=== PATIENT | male | born 1945 | race Caucasian/White ===

== ENCOUNTER → 2018-03-07 | Outpatient (CLI) | payer MEDICARE, OTHER ==
--- NOTE | 2018-03-07 15:51 | KCIC ---
EXAM: Chest, single view. HISTORY: MRI pacemaker screening. COMPARISON: None. FINDINGS: A frontal view the chest is obtained. There is mild diffuse increased interstitial opacity. There is no consolidation, pleural effusion or pneumothorax. There is a prominent cardiac silhouette. There is a small hiatal hernia. IMPRESSION: 1. No foreign body to preclude MRI. 2. Diffuse increased interstitial opacity likely due to chronic interstitial changes with superimposed atelectasis. No consolidated infiltrate is seen. 3. Prominent cardiac silhouette. Electronically signed by: Sugey Graham MD (03/07/2018 3:47 PM) [place] [id number]
--- NOTE | 2018-03-07 16:47 | KCIC ---
MRI Lumbar Spine without contrast History: Low back pain Technique: Multiplanar, multi sequential noncontrast MR imaging was performed of the lumbar spine. Comparison: None Findings: Lumbar vertebral body stature and AP alignment are within normal limits. There is recent superior T12 compression fracture with associated marrow edema signified by STIR hyperintense and T1 hypointense signal, no osseous retropulsion. Conus terminates at L1. There is more advanced degenerative disc disease at L2-3, degenerative endplate change at this level. There is [id number] degenerative disc disease at L5-S1. The conus terminates at L1-2. L2-L3: There is posterior protrusion/contained extrusion, indentation upon the ventral thecal sac greatest centrally and in the right lateral recess. This is estimated about 5 mm AP by 7 mm CC by at least 11 mm transverse. There is mild buckling of the ligamentum flavum. There is [id number] narrowing of the far right lateral recess with contact of the descending right L3 nerve, very mild narrowing of the far left lateral recess. There is mild left and moderate to severe right neural foramina compromise. L3-L4: There is negligible disc osteophyte complex and bulge. Spinal canal is overall adequate. There is mild buckling of the ligamentum flavum and facet degenerative change. There is moderate to severe left and mild right neural foramina compromise. L4-L5: There is mild buckling of the ligamentum flavum. There is minimal disc osteophyte complex greater in the inferior neural foramina. There is mild facet degenerative change. There is moderate to severe left greater than right neural foramina compromise. L5-S1: There is shallow posterior bulge, no significant impingement descending S1 nerve roots or spinal stenosis. There is mild to moderate facet degenerative change. There is disc osteophyte complex in the inferior neural foramina greater on the left. There is severe narrowing of the left neural foramen with impingement of the exiting left L5 nerve root, also moderate to severe narrowing on the right. Impression: 1. There is recent superior T12 compression fracture without osseous retropulsion, associated marrow edema. 2. There is [id number] right lateral recess stenosis L2-3 by contained extrusion/protrusion. There is contact of the descending right L3 nerve root. 3. There is multilevel neural foramina compromise, more significant narrowing bilaterally at L5-S1 and L4-5, on the left at L3-4, and on the right at L2-3. 4. There is more advanced degenerative disc disease at L2-3, to lesser degree at L5-S1. Electronically signed by: Roge Lindo MD (03/07/2018 4:43 PM) [facility]
--- NOTE | 2018-03-07 16:59 | KCIC ---
MR of the sacrum without contrast HISTORY: Uncontrolled low back pain. TECHNIQUE: Routine multiplanar sequences are obtained orthogonal to the sacrum. FINDINGS: The left femoral head is barely visualized, but demonstrates serpiginous subchondral signal marrow changes compatible with osteonecrosis. Visualization is not adequate to evaluate for subchondral bone collapse or degenerative disease of the joint. There is no evidence of bone destruction, marrow edema or acute fracture at the sacrum. The sacroiliac joints are intact. No evidence of significant subchondral marrow edema or erosion. The neural foramina are patent. No abnormality is seen within the soft tissues around the sacrum. Barely visualized lower spine demonstrates degenerative spondylosis. There is a fluid signal lesion to the left of the rectum, partially seen. This may be contiguous with the urinary bladder and represent a bladder diverticulum. IMPRESSION: 1. Barely visualized left femoral head demonstrates findings compatible with osteonecrosis. Recommend MR of the left hip. 2. No acute findings of the sacrum or sacroiliac joints. 3. Lower lumbar spondylosis. 4. Fluid signal lesion in the posterior left pelvis may represent a large bladder diverticulum. There appear to be some other diverticula or trabeculations of the posterior bladder. CT could further evaluate as indicated. Electronically signed by: Arturo Maloney MD (03/07/2018 4:55 PM) [facility]-KC[facility]
== END | disposition home or self-care (01) ==
LOC: KCIC MRI 14:59
PROVIDERS: ATTEND Family Medicine
DX: M51.17 Intervertebral disc disorders with radiculopathy, lumbosacral region (principal); S22.080A Wedge compression fracture of T11-T12 vertebra, initial encounter for closed fracture; K44.9 Diaphragmatic hernia without obstruction or gangrene; M47.26 Other spondylosis with radiculopathy, lumbar region; M25.78 Osteophyte, vertebrae; X58.XXXA Exposure to other specified factors, initial encounter; Y93.89 Activity, other specified; Y92.89 Other specified places as the place of occurrence of the external cause; Y99.8 Other external cause status
CPT/HCPCS: 71045; 72148; 72195

== ENCOUNTER 2018-04-03 22:38 | Emergency (ER) | payer OTHER ==
[~2018-04-03] VITALS: Ht 182.9 cm; Wt 88.5 kg
[2018-04-03] MEDS ORDERED: ONDANSETRON PF 4 MG/2 ML VIAL. ONE (23:09)
[2018-04-03] MEDS ORDERED: ONDANSETRON PF 4 MG/2 ML VIAL. IV ONE (23:30)
[2018-04-04] MEDS ORDERED: IV NORMAL SALINE 1000ML BAG 1,000 ML IV ONE (01:30)
[2018-04-04 01:40] LABS: BASO # 0.1 x10^3/uL (0.0-0.2); BASO % 1 % (0-3); EOS # 0.1 x10^3/uL (0.0-0.7); EOS % 1 % (0-3); HEMOGLOBIN 17.1 g/dL (13.0-17.5); LYMPH # 1.1 x10^3/uL (1.0-4.8); LYMPH % 10 % (24-48); MEAN CORPUSCULAR HEMOGLOBIN 32 pg (25-35); MEAN CORPUSCULAR HGB CONC 34 g/dL (31-37); MEAN CORPUSCULAR VOLUME 93 fL (79-100); MONO # 1.1 x10^3/uL (0.0-1.1); MONO % 10 % (0-9); NEUT # 8.5 x10^3uL (1.8-7.7); NEUT % 79 % (31-73); PLATELET COUNT 229 x10^3/uL (140-400); RED BLOOD COUNT 5.36 x10^6/uL (4.30-5.70); RED CELL DISTRIBUTION WIDTH 13.2 % (11.5-14.5); WHITE BLOOD COUNT 10.8 x10^3/uL (4.0-11.0)
--- NOTE | 2018-04-04 01:45 | PHYS DOC ---
Past Medical History Past Medical History: GERD, Hypotension, Other Additional Past Medical Histor: BACK PAIN (TANA ANDERSON APRN) Past Surgical History: Other Additional Past Surgical Histo: UNKNOWN (TANA ANDERSON APRN) Alcohol Use: None Drug Use: None (TANA ANDERSON APRN) Adult General Chief Complaint Chief Complaint: NAUSEA/VOMITING/DIARRHA HPI HPI Patient is a 72 year old male who presents with sudden onset of nausea and vomiting this evening. The patient resides at [facility]. He is extremely hard to understand. He does state that he ate dinner this evening. He states the nausea started suddenly. He denies fever or body aches. (TANA ANDERSON APRN) Review of Systems Review of Systems Constitutional: Denies fever or chills [] Eyes: Denies change in visual acuity, redness, or eye pain [] HENT: Denies nasal congestion or sore throat [] Respiratory: Denies cough or shortness of breath [] Cardiovascular: No additional information not addressed in HPI [] GI: See history of present illness : Denies dysuria or hematuria [] Musculoskeletal: Denies back pain or joint pain [] Integument: Denies rash or skin lesions [] Neurologic: Denies headache, focal weakness or sensory changes [] Endocrine: Denies polyuria or polydipsia [] All other systems were reviewed and found to be within normal limits, except as documented in this note. (TANA ANDERSON APRN) Current Medications Current Medications Current Medications Medications (Trade) Dose Ordered Sig/Diaz Start Time Stop Time Status Last Admin Dose Admin Info (CONTRAST GIVEN -- Rx MONITORING) 1 each PRN DAILY PRN 04/04/18 02:45 04/06/18 02:44 Iohexol (Omnipaque 300 Mg/ml) 60 ml 1X ONCE 04/04/18 02:30 04/04/18 02:35 DC 04/04/18 02:31 60 ML Ondansetron HCl (Zofran) 4 mg 1X ONCE 04/03/18 23:30 04/03/18 23:33 DC 04/03/18 23:20 4 MG Sodium Chloride 1,000 ml @ 1,000 mls/hr 1X ONCE 04/04/18 01:30 04/04/18 02:29 DC 04/04/18 01:20 1,000 MLS/HR ([facility]) Allergies Allergies Allergies Coded Allergies Type Severity Reaction Last Updated Verified Penicillins Allergy Intermediate 04/03/18 Yes erythromycin base Allergy Intermediate 04/03/18 Yes ([facility]) Physical Exam Physical Exam Constitutional: Well developed, well nourished, no acute distress, non-toxic appearance. [] HENT: Normocephalic, atraumatic, bilateral external ears normal, oropharynx moist, no oral exudates, nose normal. [] Eyes: PERRLA, EOMI, conjunctiva normal, no discharge. [] Neck: Normal range of motion, no tenderness, supple, no stridor. [] Cardiovascular:Heart rate regular rhythm, no murmur [] Lungs & Thorax: Bilateral breath sounds clear to auscultation [] Abdomen: Bowel sounds hyperactive, soft, mild diffuse tenderness, no masses, no pulsatile masses. [] Skin: Warm, dry, no erythema, no rash. [] Back: No tenderness, no CVA tenderness. [] Extremities: No tenderness, no cyanosis, no clubbing, ROM intact, no edema. [] Neurologic: Alert and oriented X 3, normal motor function, normal sensory function, no focal deficits noted. [] Psychologic: Affect normal, judgement normal, mood normal. [] (TANA ANDERSON APRN) Current Patient Data Vital Signs Vital Signs Date Time Temp Pulse Resp B/P (MAP) Pulse Ox O2 Delivery O2 Flow Rate FiO2 04/04/18 02:35 102 18 145/75 (98) 99 Room Air 04/03/18 22:38 97.2 2.0 97.2 ([facility]) Lab Values Laboratory Tests Test 04/04/18 01:30 White Blood Count 10.8 x10^3/uL (4.0-11.0) Red Blood Count 5.36 x10^6/uL (4.30-5.70) Hemoglobin 17.1 g/dL (13.0-17.5) Hematocrit 50.0 % (39.0-53.0) Mean Corpuscular Volume 93 fL (79-100) Mean Corpuscular Hemoglobin 32 pg (25-35) Mean Corpuscular Hemoglobin Concent 34 g/dL (31-37) Red Cell Distribution Width 13.2 % (11.5-14.5) Platelet Count 229 x10^3/uL (140-400) Neutrophils (%) (Auto) 79 % (31-73) H Lymphocytes (%) (Auto) 10 % (24-48) L Monocytes (%) (Auto) 10 % (0-9) H Eosinophils (%) (Auto) 1 % (0-3) Basophils (%) (Auto) 1 % (0-3) Neutrophils # (Auto) 8.5 x10^3uL (1.8-7.7) H Lymphocytes # (Auto) 1.1 x10^3/uL (1.0-4.8) Monocytes # (Auto) 1.1 x10^3/uL (0.0-1.1) Eosinophils # (Auto) 0.1 x10^3/uL (0.0-0.7) Basophils # (Auto) 0.1 x10^3/uL (0.0-0.2) Sodium Level 136 mmol/L (136-145) Potassium Level 4.5 mmol/L (3.5-5.1) Chloride Level 100 mmol/L (98-107) Carbon Dioxide Level 27 mmol/L (21-32) Anion Gap 9 (6-14) Blood Urea Nitrogen 43 mg/dL (8-26) H Creatinine 1.5 mg/dL (0.7-1.3) H Estimated GFR (Cockcroft-Gault) 45.7 BUN/Creatinine Ratio 29 (6-20) H Glucose Level 179 mg/dL (70-99) H Calcium Level 9.7 mg/dL (8.5-10.1) Total Bilirubin 0.6 mg/dL (0.2-1.0) Aspartate Amino Transferase (AST) 20 U/L (15-37) Alanine Aminotransferase (ALT) 32 U/L (16-63) Alkaline Phosphatase 70 U/L (46-116) Total Protein 7.7 g/dL (6.4-8.2) Albumin 3.2 g/dL (3.4-5.0) L Albumin/Globulin Ratio 0.7 (1.0-1.7) L Laboratory Tests 04/04/18 01:30 Laboratory Tests 04/04/18 01:30 ([facility],STEPAN DO) Lab Values Laboratory Tests Test 04/04/18 01:30 White Blood Count 10.8 x10^3/uL (4.0-11.0) Red Blood Count 5.36 x10^6/uL (4.30-5.70) Hemoglobin 17.1 g/dL (13.0-17.5) Hematocrit 50.0 % (39.0-53.0) Mean Corpuscular Volume 93 fL (79-100) Mean Corpuscular Hemoglobin 32 pg (25-35) Mean Corpuscular Hemoglobin Concent 34 g/dL (31-37) Red Cell Distribution Width 13.2 % (11.5-14.5) Platelet Count 229 x10^3/uL (140-400) Neutrophils (%) (Auto) 79 % (31-73) H Lymphocytes (%) (Auto) 10 % (24-48) L Monocytes (%) (Auto) 10 % (0-9) H Eosinophils (%) (Auto) 1 % (0-3) Basophils (%) (Auto) 1 % (0-3) Neutrophils # (Auto) 8.5 x10^3uL (1.8-7.7) H Lymphocytes # (Auto) 1.1 x10^3/uL (1.0-4.8) Monocytes # (Auto) 1.1 x10^3/uL (0.0-1.1) Eosinophils # (Auto) 0.1 x10^3/uL (0.0-0.7) Basophils # (Auto) 0.1 x10^3/uL (0.0-0.2) Sodium Level 136 mmol/L (136-145) Potassium Level 4.5 mmol/L (3.5-5.1) Chloride Level 100 mmol/L (98-107) Carbon Dioxide Level 27 mmol/L (21-32) Anion Gap 9 (6-14) Blood Urea Nitrogen 43 mg/dL (8-26) H Creatinine 1.5 mg/dL (0.7-1.3) H Estimated GFR (Cockcroft-Gault) 45.7 BUN/Creatinine Ratio 29 (6-20) H Glucose Level 179 mg/dL (70-99) H Calcium Level 9.7 mg/dL (8.5-10.1) Total Bilirubin Pending Aspartate Amino Transferase (AST) Pending Alanine Aminotransferase (ALT) Pending Alkaline Phosphatase Pending Total Protein Pending Albumin Pending Albumin/Globulin Ratio Pending Laboratory Tests 04/04/18 01:30 Laboratory Tests 04/04/18 01:30 (TANA ANDERSON DONATO) EKG EKG [] (TANA ANDERSON DONATO) Radiology/Procedures Radiology/Procedures [] (TANA ANDERSON DONATO) Radiology/Procedures CT abdomen and pelvis with contrast PQRS statement: CT scans at this facility use dose reduction including either automated exposure control, iterative reconstructions, and /or weight based radiation dosing via mA and kV modification when appropriate to reduce radiation dose to as low as reasonably achievable. HISTORY: Abdominal pain and vomiting. TECHNIQUE: Helical CT imaging abdomen and pelvis with 60 mL Omnipaque 300 intravenous contrast. Abdomen findings: T12 vertebral superior endplate mild subacute compression deformity similar to MR imaging from March 07, 2018. Adrenal glands are markedly atrophic. Kidneys, pancreas, gallbladder, liver and spleen are unremarkable. Hiatal hernia of the upper stomach. There is moderate fluid distention of the stomach and duodenal bulb with collapse of the remainder of the duodenum, there is mild redundant mucosa within the lumen at the junction of the duodenal bulb and descending duodenum. There may be mild groundglass mesenteric edema left abdominal small bowel and fold thickening. The appendix is negative. Sigmoid diverticulosis. No abdominal fluid or adenopathy. Pelvis findings: There is bladder diverticuli, with mild calcifications within the left dominant 3 cm diverticulum. Fatty right inguinal hernia. Prostate, rectum and bones are unremarkable. IMPRESSION: 1. Mild mesenteric edema and fold thickening of the left abdominal jejunum could indicate enteritis. 2. Moderate fluid distention of the stomach and duodenal bulb with collapse of the remainder of the duodenum with redundant mucosa at the junction of the duodenal bulb with the descending duodenum. An obstructing lesion at the duodenum cannot be excluded. 3. Hiatal hernia of the upper stomach. 4. The appendix is negative. 5. Bladder diverticuli as described above. (STEPAN IRVIN DO) Course & Med Decision Making Course & Med Decision Making Pertinent Labs and Imaging studies reviewed. (See chart for details) []The patient was given a fluid bolus and Zofran to help with his nausea. He is currently sleeping in his room and appears comfortable. 04/04/2018 care was signed over to Dr. Irvin at 0158. (TANA ANDERSON APRN) Course & Med Decision Making Dr. Irvin's note Received patient at 0 158, agree with previous H&P. Patient has had no additional nausea and vomiting at 0 355. Patient was transported to and from [place] without any complications. No evidence of an obstruction, no perforation, believe the patient to be stable for discharge to home with outpatient medication. (STEPAN IRVIN DO) Dragon Disclaimer Dragon Disclaimer This electronic medical record was generated, in whole or in part, using a voice recognition dictation system. (TANA ANDERSON APRN) Departure Departure Impression: Primary Impression: Nausea and vomiting Disposition: HOME, SELF-CARE Condition: GOOD Referrals: ABELARDO ALFONSO MD (PCP) Follow-up in 2 days Patient Instructions: Nausea and Vomiting Additional Instructions: Drink plenty of fluids, frequent small sips. No fatty foods, no milk, and no pepper for the next 48 hours. For the next 48 hours eat a diet rich in carbohydrates with foods such as bananas, rice, applesauce, and toast. Follow- up with your regular doctor in 2 days. Return to the ER if unable to tolerate liquids or any other concerns. Scripts Ondansetron Hcl (ZOFRAN) 4 Mg Tablet 4 MG PO PRN TID PRN for NAUSEA/VOMITING, #15 nausea/vomiting Prov: STEPAN IRVIN DO 04/04/18 Hyoscyamine Sulfate (LEVSIN) 0.125 Mg Tablet 0.125 MG PO QID, #30 TAB Prov: STEPAN IRVIN DO 04/04/18 Problem Qualifiers Primary Impression: Nausea and vomiting Vomiting type: unspecified Vomiting Intractability: non-intractable Qualified Codes: R11.2 - Nausea with vomiting, unspecified TANA ANDERSON APRN Apr 04, 2018 01:45 STEPAN IRVIN DO Apr 04, 2018 04:00
[2018-04-04 01:55] LABS: CALCIUM 9.7 mg/dL (8.5-10.1); CREATININE 1.5 mg/dL (0.7-1.3); GFR 45.7; POTASSIUM 4.5 mmol/L (3.5-5.1)
[2018-04-04 02:00] LABS: ALBUMIN 3.2 g/dL (3.4-5.0); ALBUMIN/GLOBULIN RATIO 0.7 (1.0-1.7); TOTAL BILIRUBIN 0.6 mg/dL (0.2-1.0); TOTAL PROTEIN 7.7 g/dL (6.4-8.2)
[2018-04-04] MEDS ORDERED: IOHEXOL 300 MG/ML 100ML VIAL. IV ONE (02:30)
[2018-04-04 02:35] VITALS: BP_DIAS 75
[2018-04-04] MEDS ORDERED: CONTRAST GIVEN. MC PRN (02:45)
--- NOTE | 2018-04-04 03:00 | RAD ---
CT abdomen and pelvis with contrast PQRS statement: CT scans at this facility use dose reduction including either automated exposure control, iterative reconstructions, and /or weight based radiation dosing via mA and kV modification when appropriate to reduce radiation dose to as low as reasonably achievable. HISTORY: Abdominal pain and vomiting. TECHNIQUE: Helical CT imaging abdomen and pelvis with 60 mL Omnipaque 300 intravenous contrast. Abdomen findings: T12 vertebral superior endplate mild subacute compression deformity similar to MR imaging from March 07, 2018. Adrenal glands are markedly atrophic. Kidneys, pancreas, gallbladder, liver and spleen are unremarkable. Hiatal hernia of the upper stomach. There is moderate fluid distention of the stomach and duodenal bulb with collapse of the remainder of the duodenum, there is mild redundant mucosa within the lumen at the junction of the duodenal bulb and descending duodenum. There may be mild groundglass mesenteric edema left abdominal small bowel and fold thickening. The appendix is negative. Sigmoid diverticulosis. No abdominal fluid or adenopathy. Pelvis findings: There is bladder diverticuli, with mild calcifications within the left dominant 3 cm diverticulum. Fatty right inguinal hernia. Prostate, rectum and bones are unremarkable. IMPRESSION: 1. Mild mesenteric edema and fold thickening of the left abdominal jejunum could indicate enteritis. 2. Moderate fluid distention of the stomach and duodenal bulb with collapse of the remainder of the duodenum with redundant mucosa at the junction of the duodenal bulb with the descending duodenum. An obstructing lesion at the duodenum cannot be excluded. 3. Hiatal hernia of the upper stomach. 4. The appendix is negative. 5. Bladder diverticuli as described above. Electronically signed by: Zion Matias MD (04/04/2018 2:55 AM) [facility]
[2018-04-04] MEDS ORDERED: HYOS0.1264 PO (03:59)
[2018-04-04] MEDS ORDERED: ONDA4TAB7 PO (03:59)
== END 2018-04-04 05:26 | disposition home or self-care (01) ==
LOC: ER 22:38
DX: R11.2 Nausea with vomiting, unspecified (principal); K44.9 Diaphragmatic hernia without obstruction or gangrene; K21.9 Gastro-esophageal reflux disease without esophagitis; Z88.0 Allergy status to penicillin; Z88.1 Allergy status to other antibiotic agents
CPT/HCPCS: 36415; 74177; 80053; 85025; 96361; 96374; 99284; J2405; J7030; Q9967

== ENCOUNTER 2018-05-01 20:41 | Emergency (ER) | payer OTHER ==
[~2018-05-01] VITALS: Ht 182.9 cm; Wt 79.4 kg
[~2018-05-01 20:41] MED LIST: HYOS0.1264 PO; ONDA4TAB7 PO
[2018-05-01 21:12] LABS: BASO # 0.1 x10^3/uL (0.0-0.2); BASO % 1 % (0-3); EOS # 0.2 x10^3/uL (0.0-0.7); EOS % 2 % (0-3); HEMATOCRIT 32.5 % (39.0-53.0); LYMPH # 2.5 x10^3/uL (1.0-4.8); LYMPH % 30 % (24-48); MEAN CORPUSCULAR HEMOGLOBIN 32 pg (25-35); MEAN CORPUSCULAR HGB CONC 34 g/dL (31-37); MEAN CORPUSCULAR VOLUME 95 fL (79-100); MONO # 0.7 x10^3/uL (0.0-1.1); MONO % 9 % (0-9); NEUT # 4.8 x10^3uL (1.8-7.7); NEUT % 58 % (31-73); PLATELET COUNT 221 x10^3/uL (140-400); RED BLOOD COUNT 3.43 x10^6/uL (4.30-5.70); WHITE BLOOD COUNT 8.2 x10^3/uL (4.0-11.0)
[2018-05-01 21:17] LABS: BILIRUBIN,URINE NEGATIVE (NEG); CLARITY,URINE CLEAR; COLOR,URINE YELLOW; NITRITE,URINE NEGATIVE (NEG); PROTEIN,URINE NEGATIVE (NEG-TRACE); UROBILINOGEN,URINE 0.2 mg/dL (0.2 mg/dL)
[2018-05-01 21:23] LABS: BACTERIA,URINE 0 /HPF (0-FEW); RBC,URINE 0 /HPF (0-2); SQUAMOUS EPITHELIAL CELL,UR OCC /LPF
[2018-05-01 21:24] LABS: CALCIUM 9.2 mg/dL (8.5-10.1); CREATININE 1.4 mg/dL (0.7-1.3); GFR 49.5; POTASSIUM 4.2 mmol/L (3.5-5.1)
[2018-05-01 21:25] LABS: BARBITURATES NEG (NEG); BENZODIAZEPINES NEG (NEG); CANNABINOIDS NEG (NEG); COCAINE NEG (NEG); METHADONE NEG (NEG); OPIATES NEG (NEG); PHENCYCLIDINE NEG (NEG)
[2018-05-01 21:26] LABS: AMPHETAMINE/METHAMPHETAMINE NEG (NEG)
[2018-05-01 21:27] LABS: ALBUMIN 3.3 g/dL (3.4-5.0); TOTAL BILIRUBIN 0.3 mg/dL (0.2-1.0); TOTAL PROTEIN 6.5 g/dL (6.4-8.2)
--- NOTE | 2018-05-02 01:17 | PHYS DOC ---
Past Medical History Past Medical History: Anemia, GERD, Hypotension, Other Additional Past Medical Histor: BACK PAIN Past Surgical History: No Surgical History, Other Additional Past Surgical Histo: UNKNOWN Alcohol Use: None Drug Use: None Adult General Chief Complaint Chief Complaint: SUICDAL IDEATION [facility] HPI Patient is a 72 year old male who presents with suicidal ideation. The patient states that when he was at his assisted living residence he had suicidal thoughts of breaking a light bulb and slitting his throat. The patient states that his mother is and he wants to go be with her. He denies to us having suicidal ideation in the past. Upon speaking with his curer acid drum she states that he has had behaviors like this in the past multiple times. He has threatened to commit suicide many times but has never acted out on his plans. He denies any new medications. 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 Review of Systems Review of Systems Constitutional: Denies fever or chills [] Eyes: Denies change in visual acuity, redness, or eye pain [] HENT: Denies nasal congestion or sore throat [] Respiratory: Denies cough or shortness of breath [] Cardiovascular: No additional information not addressed in HPI [] GI: Denies abdominal pain, nausea, vomiting, bloody stools or diarrhea [] : Denies dysuria or hematuria [] Musculoskeletal: Denies back pain or joint pain [] Integument: Denies rash or skin lesions [] Neurologic: Denies headache, focal weakness or sensory changes [] Endocrine: Denies polyuria or polydipsia [] All other systems were reviewed and found to be within normal limits, except as documented in this note. Allergies Allergies Allergies Coded Allergies Type Severity Reaction Last Updated Verified Penicillins Allergy Intermediate 04/03/18 Yes erythromycin base Allergy Intermediate 04/03/18 Yes Physical Exam Physical Exam Constitutional: Well developed, well nourished, no acute distress, non-toxic appearance. [] HENT: Normocephalic, atraumatic, bilateral external ears normal, oropharynx moist, no oral exudates, nose normal. [] Eyes: PERRLA, EOMI, conjunctiva normal, no discharge. [] Neck: Normal range of motion, no tenderness, supple, no stridor. [] Cardiovascular:Heart rate regular rhythm, no murmur [] Lungs & Thorax: Bilateral breath sounds clear to auscultation [] Abdomen: Bowel sounds normal, soft, no tenderness, no masses, no pulsatile masses. [] Skin: Warm, dry, no erythema, no rash. [] Back: No tenderness, no CVA tenderness. [] Extremities: No tenderness, no cyanosis, no clubbing, ROM intact, no edema. [] Neurologic: Alert and oriented X 3, normal motor function, normal sensory function, no focal deficits noted. [] Psychologic: Affect normal, judgement normal, mood normal. [] Current Patient Data Vital Signs Vital Signs Date Time Temp Pulse Resp B/P (MAP) Pulse Ox O2 Delivery O2 Flow Rate FiO2 05/01/18 23:16 79 18 125/56 (79) 99 Room Air 05/01/18 20:48 98.4 98.4 Lab Values Laboratory Tests Test 05/01/18 21:06 05/01/18 21:10 White Blood Count 8.2 x10^3/uL (4.0-11.0) Red Blood Count 3.43 x10^6/uL (4.30-5.70) L Hemoglobin 11.0 g/dL (13.0-17.5) L Hematocrit 32.5 % (39.0-53.0) L Mean Corpuscular Volume 95 fL (79-100) Mean Corpuscular Hemoglobin 32 pg (25-35) Mean Corpuscular Hemoglobin Concent 34 g/dL (31-37) Red Cell Distribution Width 14.0 % (11.5-14.5) Platelet Count 221 x10^3/uL (140-400) Neutrophils (%) (Auto) 58 % (31-73) Lymphocytes (%) (Auto) 30 % (24-48) Monocytes (%) (Auto) 9 % (0-9) Eosinophils (%) (Auto) 2 % (0-3) Basophils (%) (Auto) 1 % (0-3) Neutrophils # (Auto) 4.8 x10^3uL (1.8-7.7) Lymphocytes # (Auto) 2.5 x10^3/uL (1.0-4.8) Monocytes # (Auto) 0.7 x10^3/uL (0.0-1.1) Eosinophils # (Auto) 0.2 x10^3/uL (0.0-0.7) Basophils # (Auto) 0.1 x10^3/uL (0.0-0.2) Sodium Level 141 mmol/L (136-145) Potassium Level 4.2 mmol/L (3.5-5.1) Chloride Level 104 mmol/L (98-107) Carbon Dioxide Level 25 mmol/L (21-32) Anion Gap 12 (6-14) Blood Urea Nitrogen 28 mg/dL (8-26) H Creatinine 1.4 mg/dL (0.7-1.3) H Estimated GFR (Cockcroft-Gault) 49.5 BUN/Creatinine Ratio 20 (6-20) Glucose Level 136 mg/dL (70-99) H Calcium Level 9.2 mg/dL (8.5-10.1) Total Bilirubin 0.3 mg/dL (0.2-1.0) Aspartate Amino Transferase (AST) 36 U/L (15-37) Alanine Aminotransferase (ALT) 49 U/L (16-63) Alkaline Phosphatase 70 U/L (46-116) Total Protein 6.5 g/dL (6.4-8.2) Albumin 3.3 g/dL (3.4-5.0) L Albumin/Globulin Ratio 1.0 (1.0-1.7) Urine Color Yellow Urine Clarity Clear Urine pH 6.0 Urine Specific [place] 1.025 Urine Protein Negative mg/dL (NEG-TRACE) Urine Glucose (UA) Negative mg/dL (NEG) Urine Ketones (Stick) Negative mg/dL (NEG) Urine Blood Negative (NEG) Urine Nitrite Negative (NEG) Urine Bilirubin Negative (NEG) Urine Urobilinogen Dipstick 0.2 mg/dL (0.2 mg/dL) Urine Leukocyte Esterase Trace (NEG) Urine RBC 0 /HPF (0-2) Urine WBC 5-10 /HPF (0-4) Urine Squamous Epithelial Cells Occ /LPF Urine Bacteria 0 /HPF (0-FEW) Urine Mucus Slight /LPF Urine Opiates Screen Neg (NEG) Urine Methadone Screen Neg (NEG) Urine Barbiturates Neg (NEG) Urine Phencyclidine Screen Neg (NEG) Urine Amphetamine/Methamphetamine Neg (NEG) Urine Benzodiazepines Screen Neg (NEG) Urine Cocaine Screen Neg (NEG) Urine Cannabinoids Screen Neg (NEG) Urine Ethyl Alcohol Neg (NEG) Laboratory Tests 05/01/18 21:06 Laboratory Tests 05/01/18 21:06 EKG EKG [] Radiology/Procedures Radiology/Procedures [] Course & Med Decision Making Course & Med Decision Making Pertinent Labs and Imaging studies reviewed. (See chart for details) 05/02/2018 Kia, with the psychiatric assessment team has assessed the patient and is arranging for him to be transferred to [facility] for geriatric psych. We are still awaiting acceptance of that transfer. Dragon Disclaimer Dragon Disclaimer This electronic medical record was generated, in whole or in part, using a voice recognition dictation system. Departure Departure Impression: Primary Impression: Suicidal ideation Disposition: 65 XFER TO PSYCH HOSP/UNIT Condition: GOOD Referrals: ABELARDO ALFONSO MD (PCP) TANA ANDERSON APRN May 02, 2018 01:17
[2018-05-02 02:00] VITALS: BP 111/58
== END 2018-05-02 02:15 ==
LOC: ER 20:41
DX: R45.851 Suicidal ideations (principal); I10 Essential (primary) hypertension; K21.9 Gastro-esophageal reflux disease without esophagitis; Z88.0 Allergy status to penicillin; Z88.1 Allergy status to other antibiotic agents
CPT/HCPCS: 36415; 80053; 80307; 81001; 85025; 87086; 99285-25

== ENCOUNTER 2018-05-25 17:42 | Emergency (ER) | payer OTHER ==
[~2018-05-25] VITALS: Ht 182.9 cm; Wt 88.5 kg
--- NOTE | 2018-05-25 18:20 | PHYS DOC ---
Past Medical History Past Medical History: Anemia, GERD, Hypotension, Other Additional Past Medical Histor: BACK PAIN Past Surgical History: No Surgical History, Other Additional Past Surgical Histo: UNKNOWN Alcohol Use: None Drug Use: None Adult General Chief Complaint Chief Complaint: MECHANICAL FALL HPI HPI Patient is a 72 year old male who presents with a head injury. Patient was in a wheelchair, trying to transfer himself to the toilet when one hand slipped from the top causing him to hit the left side of his head into the wall and causing significant damage to the wall. There was no loss of consciousness. This happened shortly before arrival. No nausea or vomiting. Patient denies being on any blood thinners. No change in vision.[] Review of Systems Review of Systems Constitutional: Denies fever or chills [] Eyes: Denies change in visual acuity, redness, or eye pain [] HENT: Denies nasal congestion or sore throat [] Respiratory: Denies cough or shortness of breath [] Cardiovascular: No chest pain or palpitations[] GI: Denies abdominal pain, nausea, vomiting, bloody stools or diarrhea [] : Denies dysuria or hematuria [] Musculoskeletal: Denies back pain or joint pain [] Integument: Denies rash or skin lesions [] Neurologic: Denies headache, focal weakness or sensory changes [] Endocrine: Denies polyuria or polydipsia [] All other systems were reviewed and found to be within normal limits, except as documented in this note. Allergies Allergies Allergies Coded Allergies Type Severity Reaction Last Updated Verified Penicillins Allergy Intermediate 04/03/18 Yes erythromycin base Allergy Intermediate 04/03/18 Yes Physical Exam Physical Exam Constitutional: Well developed, well nourished, no acute distress, non-toxic appearance. [] HENT: Normocephalic, tenderness to palpation of the left parietal region, no step-off, no crepitus, bilateral external ears normal, TMs are clearno blood, no fluid. Oropharynx moist, no oral exudates, nose normal. [] Eyes: PERRLA, EOMI, conjunctiva normal, no discharge. [] Neck: Normal range of motion, no tenderness, supple, no stridor. [] Cardiovascular:Heart rate regular rhythm, no murmur [] Lungs & Thorax: Bilateral breath sounds clear to auscultation [] Abdomen: Bowel sounds normal, soft, no tenderness, no masses, no pulsatile masses. [] Skin: Warm, dry, no erythema, no rash. [] Back: No tenderness, no CVA tenderness. [] Extremities: No tenderness, no cyanosis, no clubbing, ROM intact, no edema. [] Neurologic: Alert and oriented X 3, normal motor function, normal sensory function, no focal deficits noted. [] Psychologic: Affect normal, judgement normal, mood normal. [] Current Patient Data Vital Signs Vital Signs Date Time Temp Pulse Resp B/P (MAP) Pulse Ox O2 Delivery O2 Flow Rate FiO2 05/25/18 17:53 98.6 95 23 128/71 (90) 96 Room Air 98.6 EKG EKG [] Radiology/Procedures Radiology/Procedures CT Head W/O Contrast: History: left parietal injury, FALL, TODAY Comparison: none Axial images were obtained without contrast. There is moderate diffuse atrophy. There is no mass effect, extraaxial fluid collections or hydrocephalus. There is no gross bleed. Minimal, patchy periventricular and subcortical white matter hypoattenuation is seen. There is no focal loss of jimenez-white matter distinction to suggest acute ischemia, i.e. stroke. Impression: No acute findings. End impression CT C-Spine without contrast: Clinical History: left parietal injury, FALL, TODAY Technique: Axial helical images of the cervical spine were obtained without contrast, axial coronal and sagittal reconstruction was performed. Findings: There is no loss of vertebral body stature. There is no prevertebral soft tissue swelling. The vertebral bodies are well aligned. The C1-C2 relationship is normal. The visualized osseous structures appear normal. Evaluation of the central canal is limited without contrast. There is multiple posterior disc bulges resulting in flattening of the thecal sac. There does not appear to be gross flattening of the cervical cord. There is marked narrowing of multiple neuroforamen. Impression: No acute findings. Clinical correlation suggested.[] Course & Med Decision Making Course & Med Decision Making Pertinent Labs and Imaging studies reviewed. (See chart for details) ED course: Patient arrived, was placed in bed, and tolerated exam well. He was transported to and from [place] with any complications. After the return of the CT findings, these were discussed with the patient voiced understanding. All questions were answered. Patient was discharged in improved condition. Decision-making: There does not appear to be an acute fracture, dislocation or subluxation. No evidence of intracranial mass or bleed.[] Dragon Disclaimer Dragon Disclaimer This electronic medical record was generated, in whole or in part, using a voice recognition dictation system. Departure Departure Impression: Primary Impression: Closed head injury Disposition: 01 HOME, SELF-CARE Condition: IMPROVED Referrals: ABELARDO ALFONSO MD (PCP) Follow-up in 2 days Patient Instructions: Head Injury, Adult Additional Instructions: Follow-up with your regular doctor in 2 days. Return to the ER if worsening pain , vomiting, or any other concerns. Scripts Meloxicam (MELOXICAM) 7.5 Mg Tablet 7.5 MG PO DAILY, #20 TAB Prov: STEPAN IRVIN DO 05/25/18 Problem Qualifiers Primary Impression: Closed head injury Encounter type: initial encounter Qualified Codes: S09.90XA - Unspecified injury of head, initial encounter STEPAN IRVIN DO May 25, 2018 18:20
--- NOTE | 2018-05-25 19:12 | RAD ---
CT Head W/O Contrast: History: left parietal injury, FALL, TODAY Comparison: none Axial images were obtained without contrast. There is moderate diffuse atrophy. There is no mass effect, extraaxial fluid collections or hydrocephalus. There is no gross bleed. Minimal, patchy periventricular and subcortical white matter hypoattenuation is seen. There is no focal loss of jimenez-white matter distinction to suggest acute ischemia, i.e. stroke. Impression: No acute findings. End impression CT C-Spine without contrast: Clinical History: left parietal injury, FALL, TODAY Technique: Axial helical images of the cervical spine were obtained without contrast, axial coronal and sagittal reconstruction was performed. Findings: There is no loss of vertebral body stature. There is no prevertebral soft tissue swelling. The vertebral bodies are well aligned. The C1-C2 relationship is normal. The visualized osseous structures appear normal. Evaluation of the central canal is limited without contrast. There is multiple posterior disc bulges resulting in flattening of the thecal sac. There does not appear to be gross flattening of the cervical cord. There is marked narrowing of multiple neuroforamen. Impression: No acute findings. Clinical correlation suggested. PQRS Compliance Statement: One or more of the following individualized dose reduction techniques were utilized for this examination: 1. Automated exposure control 2. Adjustment of the mA and/or kV according to patient size 3. Use of iterative reconstruction technique Electronically signed by: Shiraz Swan III, MD (05/25/2018 7:09 PM) [facility]
[2018-05-25] MEDS ORDERED: MELO7.5T29 PO (19:27)
[2018-05-25 20:00] VITALS: BP 117/66
== END 2018-05-25 20:19 | disposition home or self-care (01) ==
LOC: ER 17:42
DX: S09.90XA Unspecified injury of head, initial encounter (principal); I10 Essential (primary) hypertension; K21.9 Gastro-esophageal reflux disease without esophagitis; Z88.0 Allergy status to penicillin; Z88.1 Allergy status to other antibiotic agents; W01.198A Fall on same level from slipping, tripping and stumbling with subsequent striking against other object, initial encounter; Y93.89 Activity, other specified; Y92.89 Other specified places as the place of occurrence of the external cause; Y99.8 Other external cause status
CPT/HCPCS: 70450; 72125; 99284-25; 99285-25

== ENCOUNTER 2018-06-15 09:36 | Inpatient (IN) | payer OTHER ==
[2018-06-15] VITALS (16 sets, daily range): BP systolic 99–140; BP diastolic 60–90
[~2018-06-15] VITALS: Ht 188 cm; Wt 77.3 kg
[~2018-06-15 09:36] MED LIST changes: +MELO7.5T29 PO
[2018-06-15] MEDS ORDERED: IV NORMAL SALINE 1000ML BAG 1,000 ML IV SCH (09:42)
[2018-06-15] MEDS ORDERED: ACETAMINOPHEN 650 MG SUPP.RECT. PR ONE (09:45)
[2018-06-15] MEDS ORDERED: IV NORMAL SALINE 1000ML BAG 1,000 ML IV ONE (09:45)
[2018-06-15] MEDS ORDERED: methylPREDNISolone SOD SUCC PF 125 MG/2 ML VIAL. ONE (09:54)
[2018-06-15] MEDS ORDERED: methylPREDNISolone SOD SUCC PF 125 MG/2 ML VIAL. IV ONE (10:00)
[2018-06-15] MEDS ORDERED: VANCOMYCIN 1GM IVPB FOR OMNI 250 ML IV ONE (10:00)
[2018-06-15] MEDS ORDERED: CEFEPIME HCL IV Push 1 GM VIAL. IVP ONE (10:00)
[2018-06-15] MEDS ORDERED: IPRATRPIUM/ALBUTEROL 0.5/2.5MG 3 ML NEBU. NEB ONE (10:00)
[2018-06-15 10:03] LABS: BASO # 0.1 x10^3/uL (0.0-0.2); BASO % 1 % (0-3); EOS # 0.4 x10^3/uL (0.0-0.7); EOS % 2 % (0-3); HEMATOCRIT 48.2 % (39.0-53.0); HEMOGLOBIN 15.8 g/dL (13.0-17.5); LYMPH % 28 % (24-48); MEAN CORPUSCULAR HEMOGLOBIN 31 pg (25-35); MEAN CORPUSCULAR HGB CONC 33 g/dL (31-37); MEAN CORPUSCULAR VOLUME 95 fL (79-100); MONO # 0.9 x10^3/uL (0.0-1.1); MONO % 5 % (0-9); NEUT # 11.8 x10^3uL (1.8-7.7); NEUT % 65 % (31-73); PLATELET COUNT 224 x10^3/uL (140-400); RED BLOOD COUNT 5.08 x10^6/uL (4.30-5.70); RED CELL DISTRIBUTION WIDTH 14.6 % (11.5-14.5); WHITE BLOOD COUNT 18.2 x10^3/uL (4.0-11.0)
--- NOTE | 2018-06-15 10:11 | PHYS DOC ---
Past Medical History Past Medical History: Anemia, GERD, Hypotension, Other Additional Past Medical Histor: BACK PAIN Past Surgical History: No Surgical History, Other Additional Past Surgical Histo: UNKNOWN Alcohol Use: None Drug Use: None Adult General Chief Complaint Chief Complaint: ALTERED MENTAL STATUS HPI HPI Patient is a 72 year old male resident of care home who brought in by EMS because of unresponsiveness. Patient was in his normal condition last night and this morning found with seizure-like activity that lasted about 1 minute with rolling eyes back and tonic colonic activity and was unresponsive after the episode. Patient did not have history of seizure and was admitted at [facility] one week ago for a fall. Patient had O2 sat of 80s in a sonogram that improved with oxygen to 90s with heart rate of 140s at atrial fibrillation. Patient had GCS of 9 per EMS reporting. According to care home records the patient did not have history of atrial fibrillation or seizure. Patient is unresponsive and unable to give history. Review of Systems Review of Systems Unable to obtain because of unresponsiveness Current Medications Current Medications Current Medications Medications (Trade) Dose Ordered Sig/Diaz Start Time Stop Time Status Last Admin Dose Admin Acetaminophen (Tylenol Supp) 650 mg 1X ONCE 06/15/18 09:45 06/15/18 09:54 DC 06/15/18 10:17 650 MG Methylprednisolone Sodium Succinate (SOLU-Medrol 125MG VIAL) 125 mg STK-MED ONCE 06/15/18 09:54 06/15/18 09:55 DC Sodium Chloride 2,270 ml @ 378.333 mls/hr 1X ONCE 06/15/18 09:45 06/15/18 15:44 DC 06/15/18 10:26 378.333 MLS/HR Allergies Allergies Allergies Coded Allergies Type Severity Reaction Last Updated Verified Penicillins Allergy Intermediate 04/03/18 Yes erythromycin base Allergy Intermediate 04/03/18 Yes Physical Exam Physical Exam Constitutional: Unresponsive keep eyes open does not follows the commands, tries to say words without having any voice, does not respond to painful stimuli HENT: Normocephalic, atraumatic, oropharynx very dry. Eyes: PERRLA Neck: Atraumatic] Cardiovascular: Regular rhythm with tachycardia, no murmur [] Lungs & Thorax: Moderate respiratory distress with intercostal retractions, diffuse rhonchi and wheezing more in the left site Abdomen: Atraumatic Extremities: Atraumatic Neurologic: Unresponsive Current Patient Data Vital Signs Vital Signs Date Time Temp Pulse Resp B/P (MAP) Pulse Ox O2 Delivery O2 Flow Rate FiO2 06/15/18 09:36 102.8 151 48 142/70 (94) 91 Room Air 102.8 Lab Values Laboratory Tests Test 06/15/18 09:42 06/15/18 09:49 06/15/18 09:55 Glucose (Fingerstick) 140 mg/dL (70-99) H White Blood Count 18.2 x10^3/uL (4.0-11.0) H Red Blood Count 5.08 x10^6/uL (4.30-5.70) Hemoglobin 15.8 g/dL (13.0-17.5) Hematocrit 48.2 % (39.0-53.0) Mean Corpuscular Volume 95 fL (79-100) Mean Corpuscular Hemoglobin 31 pg (25-35) Mean Corpuscular Hemoglobin Concent 33 g/dL (31-37) Red Cell Distribution Width 14.6 % (11.5-14.5) H Platelet Count 224 x10^3/uL (140-400) Neutrophils (%) (Auto) 65 % (31-73) Lymphocytes (%) (Auto) 28 % (24-48) Monocytes (%) (Auto) 5 % (0-9) Eosinophils (%) (Auto) 2 % (0-3) Basophils (%) (Auto) 1 % (0-3) Neutrophils # (Auto) 11.8 x10^3uL (1.8-7.7) H Lymphocytes # (Auto) 5.0 x10^3/uL (1.0-4.8) H Monocytes # (Auto) 0.9 x10^3/uL (0.0-1.1) Eosinophils # (Auto) 0.4 x10^3/uL (0.0-0.7) Basophils # (Auto) 0.1 x10^3/uL (0.0-0.2) Prothrombin Time 12.9 SEC (11.7-14.0) Prothrombin Time INR 1.0 (0.8-1.1) Sodium Level 142 mmol/L (136-145) Potassium Level 4.0 mmol/L (3.5-5.1) Chloride Level 102 mmol/L (98-107) Carbon Dioxide Level 25 mmol/L (21-32) Anion Gap 15 (6-14) H Blood Urea Nitrogen 21 mg/dL (8-26) Creatinine 1.8 mg/dL (0.7-1.3) H Estimated GFR (Cockcroft-Gault) 37.1 BUN/Creatinine Ratio 12 (6-20) Glucose Level 133 mg/dL (70-99) H Lactic Acid Level 3.0 mmol/L (0.4-2.0) H Calcium Level 9.7 mg/dL (8.5-10.1) Magnesium Level 1.8 mg/dL (1.8-2.4) Total Bilirubin 0.9 mg/dL (0.2-1.0) Aspartate Amino Transferase (AST) 23 U/L (15-37) Alanine Aminotransferase (ALT) 15 U/L (16-63) L Alkaline Phosphatase 98 U/L (46-116) Creatine Kinase 77 U/L (39-308) Troponin I Quantitative 0.562 ng/mL (0.000-0.055) Total Protein 7.4 g/dL (6.4-8.2) Albumin 3.7 g/dL (3.4-5.0) Albumin/Globulin Ratio 1.0 (1.0-1.7) O2 Saturation 90 % (92-99) L Arterial Blood pH 7.47 (7.35-7.45) H Arterial Blood pCO2 at Patient Temp 30 mmHg (35-46) L Arterial Blood pO2 at Patient Temp 55 mmHg (65-108) L Arterial Blood HCO3 22 mmol/L (21-28) Arterial Blood Base Excess -1 mmol/L (-3-3) FiO2 28 Influenza Type A Antigen Negative (NEGATIVE) Influenza Type B Antigen Negative (NEGATIVE) Laboratory Tests 06/15/18 09:49 Laboratory Tests 06/15/18 09:49 EKG EKG EKG interpreted by me. EKG at 0 946 showed atrial fibrillation with RVR, poor R- wave progress in anteroseptal leads, T-wave abnormality and high lateral leads, no acute ST and T-wave abnormalities.[] Radiology/Procedures Radiology/Procedures [facility] [address] [place] [address] IMAGING REPORT Signed PATIENT: JUVENTINO CAMACHO ACCOUNT: [id number] : 1945 LOCATION: ER AGE: 72 SEX: M EXAM STATUS: REG ER ORD. PHYSICIAN: JESUS BARONE MD REASON: fever PROCEDURE: PORTABLE CHEST 1V AP chest. HISTORY: Fever altered mental status AP view was taken of the chest. Patient struck mildly rotated to the left. There are mild left perihilar infiltrates. Heart is normal in size. There is no pleural effusion. IMPRESSION: 1. Mild left perihilar infiltrates. Electronically signed by: Mark Torres MD (06/15/2018 10:08 AM) [facility] DICTATED and SIGNED BY: MARK TORRES MD DATE: 06/15/18 1008 [facility] [address] [place] [address] IMAGING REPORT Signed PATIENT: JUVENTINO CAMACHO ACCOUNT: [id number] : 1945 LOCATION: [address] [address] AGE: 72 SEX: M EXAM STATUS: ADM IN ORD. PHYSICIAN: JESUS BARONE MD REASON: ALOC, seizure PROCEDURE: CT HEAD AND CERVICAL SPINE WO CT brain without contrast, CT C-spine without contrast. HISTORY: Seizure, altered level of consciousness CT brain CT scan of the brain was done without contrast. Comparison is made with a study from May 25. There is mild atrophy. There is no intracranial hemorrhage or subdural hematoma. Ventricles are normal in size. There is no mass or shift of the midline. There is decreased density in the white matter from chronic microvascular changes. Sinuses are clear. A skull fracture is not identified. IMPRESSION: 1. Chronic white matter changes. 2. No intracranial hemorrhage or mass or acute CVA noted. End impression CT cervical spine Axial CT images were obtained to the cervical spine. Sagittal and coronal reconstructed images were reviewed. A C-spine fracture is not identified. There is facet arthritis in the mid cervical spine. There is foraminal stenosis at C4-5 on the left and C5-6 on the right. There is disc space narrowing at C5-6 and C6-7. Upper aspect of the lungs show bilateral infiltrates more prominent in the left upper lobe. IMPRESSION: 1. Degenerative changes in the cervical spine. 2. No acute fracture. 3. Bilateral infiltrates in the lungs. PQRS Compliance Statement: One or more of the following individualized dose reduction techniques were utilized for this examination: 1. Automated exposure control 2. Adjustment of the mA and/or kV according to patient size 3. Use of iterative reconstruction technique Electronically signed by: Mark Torres MD (06/15/2018 12:34 PM) [facility] DICTATED and SIGNED BY: MARK TORRES MD DATE: 06/15/18 1414 Course & Med Decision Making Course & Med Decision Making Pertinent Labs and Imaging studies reviewed. (See chart for details) Evaluation of patient in ER showed 72-year-old male patient resident of care home with DNR condition and history of renal insufficiency without history of seizure or atrial fibrillation brought in with fever of 102.9, unresponsiveness , atrial fibrillation with RVR, acute respiratory distress with tachypnea and hypoxia. Patient treated with nonrebreather patient last, IV fluid, rectal Tylenol, IV prednisone, nebulizer treatment. After obtaining ABG and blood culture patient was started on BiPAP and IV antibiotic was given. Patient continued to have atrial fibrillation with RVR after treatment for fever and dehydration and Cardizem bolus was given without change of heart rate and Cardizem drip was ordered. Patient also had 1 episodes of tonic-clonic seizure witnessed by [facility] that last about 45 second and IV Ativan was given. Patient did not have hypotension. Plan to the patient on Cardizem drip to ICU with diagnosis of sepsis, respiratory failure, renal insufficiency, dehydration and HCAP. Dragon Disclaimer Dragon Disclaimer This electronic medical record was generated, in whole or in part, using a voice recognition dictation system. Departure Departure Impression: Primary Impression: Acute respiratory distress Additional Impressions: Altered level of consciousness HCAP (healthcare-associated pneumonia) Sepsis Adrenal insufficiency Renal insufficiency Atrial fibrillation with RVR New onset seizure Disposition: ADMITTED INPATIENT (1021) Admitting Physician: Bre Robledo (accepted admission at 1021) Condition: GRAVE Referrals: ABELARDO ALFONSO MD (PCP) Critical Care Time Critical care time was 120 minutes exclusive of procedures. Problem Qualifiers Additional Impressions: Sepsis Sepsis type: sepsis due to unspecified organism Qualified Codes: A41.9 - Sepsis, unspecified organism JESUS BARONE MD Jun 15, 2018 10:11
[2018-06-15 10:12] LABS: PROTHROMBIN TIME PATIENT 12.9 SEC (11.7-14.0)
[2018-06-15 10:14] LABS: CALCIUM 9.7 mg/dL (8.5-10.1); CREATININE 1.8 mg/dL (0.7-1.3); GFR 37.1
[2018-06-15] MEDS ORDERED: dilTIAZem IV PUSH 25 MG/5 ML VIAL IVP ONE (10:15)
[2018-06-15 10:19] LABS: ALBUMIN 3.7 g/dL (3.4-5.0); MAGNESIUM 1.8 mg/dL (1.8-2.4); TOTAL BILIRUBIN 0.9 mg/dL (0.2-1.0); TOTAL PROTEIN 7.4 g/dL (6.4-8.2)
[2018-06-15 10:25] LABS: BILIRUBIN,URINE NEGATIVE (NEG); CLARITY,URINE CLEAR; COLOR,URINE YELLOW; NITRITE,URINE NEGATIVE (NEG); PROTEIN,URINE 30 mg/dL (NEG-TRACE); UROBILINOGEN,URINE 0.2 mg/dL (0.2 mg/dL)
[2018-06-15 10:26] LABS: INFLUENZA A PATIENT NEGATIVE (NEGATIVE); INFLUENZA B PATIENT NEGATIVE (NEGATIVE)
[2018-06-15] MEDS ORDERED: VANCOMYCIN 2 GM in IV NORMAL SALINE 500ML BAG 500 ML IV ONE (10:30)
[2018-06-15 10:31] LABS: BASE EXCESS ABG -1 mmol/L (-3-3); HCO3 ABG 22 mmol/L (21-28); PCO2 ABG 30 mmHg (35-46); PO2 ABG 55 mmHg (65-108); SAT O2 ABG 90 % (92-99)
[2018-06-15 10:33] LABS: FIO2 ABG 28
[2018-06-15 10:33] LABS: SQUAMOUS EPITHELIAL CELL,UR OCC /LPF
[2018-06-15 10:34] LABS: BACTERIA,URINE FEW /HPF (0-FEW)
[2018-06-15] MEDS: dilTIAZem INJ 125 MG in IV DEXTROSE 5% 100ML 100 ML IV PRN ×2 (12:31→22:06)
[2018-06-15] MEDS: IV NORMAL SALINE 1000ML BAG 1,000 ML IV SCH ×2 (12:32→19:26)
[2018-06-15] MEDS ORDERED: BACL10TA PO (12:34)
[2018-06-15] MEDS ORDERED: LIDO700A39 TP (12:34)
--- NOTE | 2018-06-15 12:37 | RAD ---
CT brain without contrast, CT C-spine without contrast. HISTORY: Seizure, altered level of consciousness CT brain CT scan of the brain was done without contrast. Comparison is made with a study from May 25. There is mild atrophy. There is no intracranial hemorrhage or subdural hematoma. Ventricles are normal in size. There is no mass or shift of the midline. There is decreased density in the white matter from chronic microvascular changes. Sinuses are clear. A skull fracture is not identified. IMPRESSION: 1. Chronic white matter changes. 2. No intracranial hemorrhage or mass or acute CVA noted. End impression CT cervical spine Axial CT images were obtained to the cervical spine. Sagittal and coronal reconstructed images were reviewed. A C-spine fracture is not identified. There is facet arthritis in the mid cervical spine. There is foraminal stenosis at C4-5 on the left and C5-6 on the right. There is disc space narrowing at C5-6 and C6-7. Upper aspect of the lungs show bilateral infiltrates more prominent in the left upper lobe. IMPRESSION: 1. Degenerative changes in the cervical spine. 2. No acute fracture. 3. Bilateral infiltrates in the lungs. PQRS Compliance Statement: One or more of the following individualized dose reduction techniques were utilized for this examination: 1. Automated exposure control 2. Adjustment of the mA and/or kV according to patient size 3. Use of iterative reconstruction technique Electronically signed by: Mark Torres MD (06/15/2018 12:34 PM) [facility]
[2018-06-15] MEDS ORDERED: FAMO-63 PO (12:51)
[2018-06-15] MEDS ORDERED: HYDR20TA PO (12:51)
[2018-06-15] MEDS ORDERED: DULO60CA6 PO (12:51)
[2018-06-15] MEDS ORDERED: MAG355OR12 PO (12:51)
[2018-06-15] MEDS ORDERED: HYDR10TA PO (12:51)
[2018-06-15] MEDS ORDERED: CHOL10003 PO (12:56)
[2018-06-15] MEDS ORDERED: TRAZ-118 PO (12:56)
[2018-06-15] MEDS ORDERED: TRAM50TA PO (12:56)
[2018-06-15] MEDS ORDERED: NITR0.4T22 SL (12:56)
[2018-06-15] MEDS ORDERED: POLY17PO29 PO (12:56)
[2018-06-15] MEDS ORDERED: MAGN400O7 PO (12:56)
[2018-06-15] MEDS ORDERED: METH57CR17 TP (12:56)
[2018-06-15] MEDS ORDERED: CYAN10005 PO (12:56)
[2018-06-15] MEDS ORDERED: NITROGLYCERIN SUBLINGUAL 0.4 MG BOTTLE OF 25. SL PRN (13:45)
[2018-06-15] MEDS ORDERED: MAGNESIUM HYDROXIDE 2,400 MG/30 ML ORAL.SUSP. PO PRN (13:45)
[2018-06-15] MEDS: BACLOFEN 10 MG TABLET. PO SCH ×2 (14:00→20:21)
[2018-06-15] MEDS ORDERED: ONDANSETRON ODT 4 MG TAB.RAPDIS. PO PRN (14:15)
[2018-06-15] MEDS: FAMOTIDINE 20 MG TABLET. PO SCH ×2 (15:00→20:21)
[2018-06-15] MEDS: DULoxetine HCL 30 MG CAPSULE.DR PO SCH (15:00)
[2018-06-15] MEDS: CHOLECALCIFEROL (VITAMIN D3) 1,000 UNIT TABLET PO SCH (15:00)
[2018-06-15] MEDS: POLYETHYLENE GLYCOL 3350 17 GM PACKET. PO SCH (15:00)
[2018-06-15] MEDS: LIDOCAINE (700MG/PATCH) PATCH. TD SCH (15:00)
--- NOTE | 2018-06-15 15:21 | PDOC1 ---
History and Physical Date of Admission Date of Admission DATE: 06/15/18 TIME: 15:21 History of Present Illness History of Present Illness Mr. Hill, is a 72 year old male resident of [facility]way. EMS was called today when he was seen to have a seizure and then was unresponsive. His neice is here, his POA, and reports that he had lifelong had then mental capacity of a 10 year old. he has been in assisted living due to inabilty to care for himself, and he struggled some after his parents , has been getting help from his siblings and their kids. He has been prior hypochondriac per family, had usually complained of some illness, but that was not new for him Today, seizure-like activity that lasted about 1 minute w./ tonic colonic activity and was unresponsive after. Was sleepy in the ER, then with some resp distress, tachypnea. admit to ICU Past Medical History Cardiovascular: HTN Pulmonary: Asthma CENTRAL NERVOUS SYSTEM: Other GI: No pertinent hx Rheumatologic: No pertinent hx Infectious disease: No pertinent hx Family History Family History: No Significant Social History Smoke: No ALCOHOL: none Drugs: None Current Problem List Problem List Problems Medical Problems: (1) Acute respiratory distress Status: Acute (2) Adrenal insufficiency Status: Acute (3) Altered level of consciousness Status: Acute (4) Atrial fibrillation with RVR Status: Acute (5) HCAP (healthcare-associated pneumonia) Status: Acute (6) New onset seizure Status: Acute (7) Renal insufficiency Status: Acute (8) Sepsis Status: Acute Current Medications Current Medications Current Medications Sodium Chloride 1,000 ml @ 1,000 mls/hr Q1H IV Last administered on 06/15/18at 09:42; Start 06/15/18 at 09:42; Stop 06/15/18 at 10:41; Status DC Sodium Chloride 2,270 ml @ 378.333 mls/hr 1X ONCE IV Last administered on at 10:26; Start 06/15/18 at 09:45; Stop 06/15/18 at 15:44 Acetaminophen (Tylenol Supp) 650 mg 1X ONCE PA Last administered on 06/15/18at 10:17; Start 06/15/18 at 09:45; Stop 06/15/18 at 09:54; Status DC Cefepime HCl (Maxipime) 1 gm 1X ONCE IVP Last administered on 06/15/18at 10:16 ; Start 06/15/18 at 10:00; Stop 06/15/18 at 10:04; Status DC Vancomycin HCl 250 ml @ 250 mls/hr 1X ONCE IV ; Start 06/15/18 at 10:00; Stop 06/15/18 at 10:59; Status UNV Vancomycin HCl 2 gm/Sodium Chloride 500 ml @ 250 mls/hr ONCE ONCE IV Last administered on 06/15/18at 10:27; Start 06/15/18 at 10:30; Stop 06/15/18 at 12:29 ; Status DC Methylprednisolone Sodium Succinate (SOLU-Medrol 125MG VIAL) 250 mg 1X ONCE IV Last administered on 06/15/18at 09:57; Start 06/15/18 at 10:00; Stop 06/15/18 at 10:01; Status DC Albuterol/ Ipratropium (Duoneb) 3 ml 1X ONCE NEB Last administered on at 10:50; Start 06/15/18 at 10:00; Stop 06/15/18 at 10:01; Status DC Methylprednisolone Sodium Succinate (SOLU-Medrol 125MG VIAL) 125 mg STK-MED ONCE .ROUTE ; Start 06/15/18 at 09:54; Stop 06/15/18 at 09:55; Status DC Diltiazem HCl (Cardizem Iv Push) 10 mg 1X ONCE IVP Last administered on at 11:09; Start 06/15/18 at 10:15; Stop 06/15/18 at 10:16; Status DC Lorazepam (Ativan) 1 mg 1X ONCE IV Last administered on 06/15/18at 10:37; Start 06/15/18 at 10:45; Stop 06/15/18 at 10:46; Status DC Sodium Chloride 1,000 ml @ 150 mls/hr Q6H40M IV Last administered on at 12:32; Start 06/15/18 at 11:58; Stop 06/16/18 at 11:57 Diltiazem HCl 125 mg/Dextrose 125 ml @ 5 mls/hr CONT PRN IV SEE I/O RECORD Last administered on 06/15/18at 12:31; Start 06/15/18 at 12:15 Baclofen (Lioresal) 5 mg TID PO ; Start 06/15/18 at 14:00 Vitamin D (Vitamin D3) 2,000 unit DAILY PO ; Start 06/15/18 at 15:00 Famotidine (Pepcid) 20 mg QHS PO ; Start 06/15/18 at 15:00 Al Hydroxide/Mg Hydroxide (Mylanta Plus Xs) 30 ml PRN Q12HRS PRN PO HEARTBURN / GAS; Start 06/15/18 at 21:00 Magnesium Hydroxide (Milk Of Magnesia) 400 mg PRN QHS PRN PO CONSTIPATION; Start 06/15/18 at 13:45 Nitroglycerin (Nitrostat) 0.4 mg PRN Q5MIN PRN SL CHEST PAIN; Start 06/15/18 at 13:45 Tramadol HCl (Ultram) 50 mg PRN Q6HRS PRN PO PAIN; Start 06/15/18 at 13:45 Duloxetine HCl (Cymbalta) 60 mg DAILY PO ; Start 06/15/18 at 15:00 Lidocaine (Lidoderm) 1 patch DAILY TD ; Start 06/15/18 at 15:00 Ondansetron HCl (Zofran Odt) 4 mg PRN Q8HRS PRN PO NAUSEA/VOMITING; Start 06/15 at 14:15 Polyethylene Glycol (miraLAX PACKET) 17 gm DAILY PO ; Start 06/15/18 at 15:00 Miscellaneous (Lidoderm Patch Removal) 1 ea QHS MC ; Start 06/15/18 at 21:00 Vancomycin HCl (Vanco Per Pharmacy) 1 each PRN DAILY PRN MC SEE COMMENTS; Start 06/15/18 at 15:30; Status UNV Cefepime HCl (Maxipime) 2 gm Q8HRS IVP ; Start 06/15/18 at 22:00; Status UNV Active Scripts Active Meloxicam 7.5 Mg Tablet 7.5 Mg PO DAILY Zofran (Ondansetron Hcl) 4 Mg Tablet 4 Mg PO PRN TID PRN nausea/vomiting Reported Tramadol Hcl 50 Mg Tablet 50 Mg PO Q6HRS PRN NITROGLYCERIN SubLingual (Nitroglycerin) 0.4 Mg Tab.subl 0.4 Mg SL PRN Q5MIN PRN Milk Of Magnesia (Magnesium Hydroxide) 400 Mg/5 Ml Oral.susp 400 Mg PO PRN QHS PRN [place] Greaseless Cream (Methyl Salicylate/Menthol) 57 Gm Cream..g. 57 Gm TP PRN Q1HR PRN Vitamin D3 (Cholecalciferol (Vitamin D3)) 1,000 Unit Tablet 2,000 Unit PO DAILY Vitamin B-12 (Cyanocobalamin (Vitamin B-12)) 1,000 Mcg Tablet 1 Tab PO DAILY Trazodone Hcl 50 Mg Tablet 50 Mg PO HS Miralax (Polyethylene Glycol 3350) 17 Gm Powd.pack 1 Pkt PO DAILY Maalox Maximum Strength Susp (Mag Hydrox/Al Hydrox/Simeth) 355 Ml Oral.susp 355 Ml PO Q12HR Cortef (Hydrocortisone) 20 Mg Tablet 20 Mg PO AFTRNOON PRN Cortef (Hydrocortisone) 10 Mg Tablet 15 Mg PO DAILY Pepcid (Famotidine) 20 Mg Tablet 20 Mg PO BID Cymbalta (Duloxetine Hcl) 60 Mg Capsule.dr 1 Cap PO DAILY Baclofen 10 Mg Tablet 5 Mg PO TID Lidocaine 1 Each Adh..patch 1 Each TP DAILY Allergies Allergies: Coded Allergies: Penicillins (Verified Allergy, Intermediate, 04/03/18) erythromycin base (Verified Allergy, Intermediate, 04/03/18) ROS Review of System unable, patient lethargic, not verbal Physical Exam General: mild distress, Other (not following commands, awakens and holds my hand) HEENT: Atraumatic, PERRLA, EOMI Lungs: Other (rales, no wheeze, ) Abdomen: Normal bowel sounds, Soft Rectal Exam: not examined Extremities: No edema, Normal pulses Skin: No breakdown, Other (poor feet and nail care, right) Neuro: Normal tone, Sensation intact, Cranial nerves 3-12 NL Psych/Mental Status: Mood NL Vitals Vitals Vital Signs Date Time Temp Pulse Resp B/P (MAP) Pulse Ox O2 Delivery O2 Flow Rate FiO2 06/15/18 13:32 95 BiPAP/CPAP 06/15/18 12:16 132 60 06/15/18 11:09 126/78 06/15/18 10:20 102.0 102.0 Labs Labs Laboratory Tests Test 06/15/18 09:42 06/15/18 09:49 06/15/18 09:55 06/15/18 10:13 Glucose (Fingerstick) 140 mg/dL (70-99) White Blood Count 18.2 x10^3/uL (4.0-11.0) Red Blood Count 5.08 x10^6/uL (4.30-5.70) Hemoglobin 15.8 g/dL (13.0-17.5) Hematocrit 48.2 % (39.0-53.0) Mean Corpuscular Volume 95 fL (79-100) Mean Corpuscular Hemoglobin 31 pg (25-35) Mean Corpuscular Hemoglobin Concent 33 g/dL (31-37) Red Cell Distribution Width 14.6 % (11.5-14.5) Platelet Count 224 x10^3/uL (140-400) Neutrophils (%) (Auto) 65 % (31-73) Lymphocytes (%) (Auto) 28 % (24-48) Monocytes (%) (Auto) 5 % (0-9) Eosinophils (%) (Auto) 2 % (0-3) Basophils (%) (Auto) 1 % (0-3) Neutrophils # (Auto) 11.8 x10^3uL (1.8-7.7) Lymphocytes # (Auto) 5.0 x10^3/uL (1.0-4.8) Monocytes # (Auto) 0.9 x10^3/uL (0.0-1.1) Eosinophils # (Auto) 0.4 x10^3/uL (0.0-0.7) Basophils # (Auto) 0.1 x10^3/uL (0.0-0.2) Prothrombin Time 12.9 SEC (11.7-14.0) Prothromb Time International Ratio 1.0 (0.8-1.1) Sodium Level 142 mmol/L (136-145) Potassium Level 4.0 mmol/L (3.5-5.1) Chloride Level 102 mmol/L (98-107) Carbon Dioxide Level 25 mmol/L (21-32) Anion Gap 15 (6-14) Blood Urea Nitrogen 21 mg/dL (8-26) Creatinine 1.8 mg/dL (0.7-1.3) Estimated GFR (Cockcroft-Gault) 37.1 BUN/Creatinine Ratio 12 (6-20) Glucose Level 133 mg/dL (70-99) Lactic Acid Level 3.0 mmol/L (0.4-2.0) Calcium Level 9.7 mg/dL (8.5-10.1) Magnesium Level 1.8 mg/dL (1.8-2.4) Total Bilirubin 0.9 mg/dL (0.2-1.0) Aspartate Amino Transf (AST/SGOT) 23 U/L (15-37) Alanine Aminotransferase (ALT/SGPT) 15 U/L (16-63) Alkaline Phosphatase 98 U/L (46-116) Creatine Kinase 77 U/L (39-308) Troponin I Quantitative 0.562 ng/mL (0.000-0.055) Total Protein 7.4 g/dL (6.4-8.2) Albumin 3.7 g/dL (3.4-5.0) Albumin/Globulin Ratio 1.0 (1.0-1.7) O2 Saturation 90 % (92-99) Arterial Blood pH 7.47 (7.35-7.45) Arterial Blood pCO2 at Patient Temp 30 mmHg (35-46) Arterial Blood pO2 at Patient Temp 55 mmHg (65-108) Arterial Blood HCO3 22 mmol/L (21-28) Arterial Blood Base Excess -1 mmol/L (-3-3) FiO2 28 Influenza Type A Antigen Negative (NEGATIVE) Influenza Type B Antigen Negative (NEGATIVE) Urine Collection Type Unknown Urine Color Yellow Urine Clarity Clear Urine pH 8.[address] 1.015 Urine Protein 30 mg/dL (NEG-TRACE) Urine Glucose (UA) Negative mg/dL (NEG) Urine Ketones (Stick) Trace mg/dL (NEG) Urine Blood Moderate (NEG) Urine Nitrite Negative (NEG) Urine Bilirubin Negative (NEG) Urine Urobilinogen Dipstick 0.2 mg/dL (0.2 mg/dL) Urine Leukocyte Esterase Negative (NEG) Urine RBC 11-20 /HPF (0-2) Urine WBC 1-4 /HPF (0-4) Urine Squamous Epithelial Cells Occ /LPF Urine Bacteria Few /HPF (0-FEW) Urine Mucus Mod /LPF Test 06/15/18 14:22 Lactic Acid Level 2.9 mmol/L (0.4-2.0) Troponin I Quantitative 1.515 ng/mL (0.000-0.055) Laboratory Tests Test 06/15/18 09:42 06/15/18 09:49 06/15/18 09:55 06/15/18 10:13 Glucose (Fingerstick) 140 mg/dL (70-99) White Blood Count 18.2 x10^3/uL (4.0-11.0) Red Blood Count 5.08 x10^6/uL (4.30-5.70) Hemoglobin 15.8 g/dL (13.0-17.5) Hematocrit 48.2 % (39.0-53.0) Mean Corpuscular Volume 95 fL (79-100) Mean Corpuscular Hemoglobin 31 pg (25-35) Mean Corpuscular Hemoglobin Concent 33 g/dL (31-37) Red Cell Distribution Width 14.6 % (11.5-14.5) Platelet Count 224 x10^3/uL (140-400) Neutrophils (%) (Auto) 65 % (31-73) Lymphocytes (%) (Auto) 28 % (24-48) Monocytes (%) (Auto) 5 % (0-9) Eosinophils (%) (Auto) 2 % (0-3) Basophils (%) (Auto) 1 % (0-3) Neutrophils # (Auto) 11.8 x10^3uL (1.8-7.7) Lymphocytes # (Auto) 5.0 x10^3/uL (1.0-4.8) Monocytes # (Auto) 0.9 x10^3/uL (0.0-1.1) Eosinophils # (Auto) 0.4 x10^3/uL (0.0-0.7) Basophils # (Auto) 0.1 x10^3/uL (0.0-0.2) Prothrombin Time 12.9 SEC (11.7-14.0) Prothromb Time International Ratio 1.0 (0.8-1.1) Sodium Level 142 mmol/L (136-145) Potassium Level 4.0 mmol/L (3.5-5.1) Chloride Level 102 mmol/L (98-107) Carbon Dioxide Level 25 mmol/L (21-32) Anion Gap 15 (6-14) Blood Urea Nitrogen 21 mg/dL (8-26) Creatinine 1.8 mg/dL (0.7-1.3) Estimated GFR (Cockcroft-Gault) 37.1 BUN/Creatinine Ratio 12 (6-20) Glucose Level 133 mg/dL (70-99) Lactic Acid Level 3.0 mmol/L (0.4-2.0) Calcium Level 9.7 mg/dL (8.5-10.1) Magnesium Level 1.8 mg/dL (1.8-2.4) Total Bilirubin 0.9 mg/dL (0.2-1.0) Aspartate Amino Transf (AST/SGOT) 23 U/L (15-37) Alanine Aminotransferase (ALT/SGPT) 15 U/L (16-63) Alkaline Phosphatase 98 U/L (46-116) Creatine Kinase 77 U/L (39-308) Troponin I Quantitative 0.562 ng/mL (0.000-0.055) Total Protein 7.4 g/dL (6.4-8.2) Albumin 3.7 g/dL (3.4-5.0) Albumin/Globulin Ratio 1.0 (1.0-1.7) O2 Saturation 90 % (92-99) Arterial Blood pH 7.47 (7.35-7.45) Arterial Blood pCO2 at Patient Temp 30 mmHg (35-46) Arterial Blood pO2 at Patient Temp 55 mmHg (65-108) Arterial Blood HCO3 22 mmol/L (21-28) Arterial Blood Base Excess -1 mmol/L (-3-3) FiO2 28 Influenza Type A Antigen Negative (NEGATIVE) Influenza Type B Antigen Negative (NEGATIVE) Urine Collection Type Unknown Urine Color Yellow Urine Clarity Clear Urine pH 8.[address] 1.015 Urine Protein 30 mg/dL (NEG-TRACE) Urine Glucose (UA) Negative mg/dL (NEG) Urine Ketones (Stick) Trace mg/dL (NEG) Urine Blood Moderate (NEG) Urine Nitrite Negative (NEG) Urine Bilirubin Negative (NEG) Urine Urobilinogen Dipstick 0.2 mg/dL (0.2 mg/dL) Urine Leukocyte Esterase Negative (NEG) Urine RBC 11-20 /HPF (0-2) Urine WBC 1-4 /HPF (0-4) Urine Squamous Epithelial Cells Occ /LPF Urine Bacteria Few /HPF (0-FEW) Urine Mucus Mod /LPF Test 06/15/18 14:22 Lactic Acid Level 2.9 mmol/L (0.4-2.0) Troponin I Quantitative 1.515 ng/mL (0.000-0.055) VTE Prophylaxis Ordered VTE Prophylaxis Devices: No VTE Pharmacological Prophylaxi: Yes Assessment/Plan Assessment/Plan sepsis, severe sepsis pneumonia possible seizure, with post ictal or metabolic encephalopathy acute hypercarbic respiratory failure, ICU admit, on BIPAP NSTEMI, 2 demand likely afib RVR, acute diastolic CHF CAROLEE RUDD MD Jun 15, 2018 15:21
[2018-06-15] MEDS ORDERED: VANCOMYCIN PER PHARMACY MC PRN (15:30)
[2018-06-15] MEDS ORDERED: CEFEPIME HCL IV Push 2 GM VIAL. IVP SCH (15:30)
--- NOTE | 2018-06-15 15:54 | NUR ---
Pharmacy Vancomycin Dosing Note S:Consulted to monitor and dose vancomycin started 06/15/18. O:JUVENTINO CAMACHO is a 72 year old M with recent admission to [facility] presents unresponsive with concerns for pneumonia. Height: 6 feet, 2 inches Weight: 84.258968 kg [place] Body Weight: 82.20 Adjusted Body Weight: 83.24 Dosing Weight: Actual Other Antibiotics: Cefepime LABS: Last BUN: 21 Last Creatinine: 1.8 (baseline 04/22 = 1.4?) Creatinine Clearance: about 40 mL/min Last WBC: 18.2 Last Procalcitonin: Patient with ISIDRO Tmax (past 24 hours): 103.2 Microbiology: Blood culture pending I/O: 1999/250 Drug Levels: Last dose given 06/15/18 at 1027 Vancomycin Dosing: Loading Dose: 2000 mg x1 Dosing Weight: Actual Target Trough: 15-20 A: Based on: Patient's renal function, PMH, and severity of suspected infection P: 1. Initiated Vancomycin 1500 mg IV q24h, however if renal function worsens in AM would recommend to check a random 24 hour level prior to administration of next dose. 2. Follow up Trough level tentatively scheduled for on 06/17/18 at 1030 3. Pharmacy will continue to monitor, follow and adjust therapy as needed. SUSANNA DARLING, [facility], 06/15/18 [id number]
--- NOTE | 2018-06-15 15:55 | EKG ---
[facility] [address] [place] [address] Test Date: 2018-06-15 Test Time: 09:46:47 Pat Name: JUVENTINO CAMACHO Department: Room: Gender: M Hand Former: : 1945 Requested By: JESUS BARONE Order Number: [id number] Reading MD: Measurements Intervals Ava Rate: 137 P: LA: QRS: 13 QRSD: 72 T: 67 QT: 314 QTc: 476 Interpretive Statements IRREGULAR RHYTHM, NO P-WAVE FOUND QRS(T) CONTOUR ABNORMALITY CONSIDER ANTEROSEPTAL MYOCARDIAL DAMAGE T ABNORMALITY IN HIGH LATERAL LEADS ABNORMAL ECG RI6.01 Unconfirmed report No previous ECG available for comparison
[2018-06-15] MEDS ORDERED: HEPARIN for IV BOLUS 10,000 UNIT/10 ML VIAL. IV ONE (16:45)
[2018-06-15] MEDS ORDERED: HEPARIN for IV BOLUS 10,000 UNIT/10 ML VIAL. IV PRN (16:45)
[2018-06-15] MEDS: HEPARIN 25,000UTS/500ML PREMIX 500 ML IV PRN (16:57)
--- NOTE | 2018-06-15 17:00 | NUR ---
ADMISSION NOTE: Pt arrived to RM 111 @ 1225 via ED bed. Pt not responsive, temperature 103.2. Currently in Afib RVR, fluids running at 150/hr and Vancomycin infusing. Pt placed on bipap. Pt hooked up to ICU monitor, head to toe assessment completed. Sarai Stuart (LOIDAOA) at bedside, able to answer questions for RN. Pt nonverbal at this time, unable to answer any questions. Cardizem gtt started. Sepsis protocol initiated in ED. 1406: Dr. Mason notified of pt admission and new consult. No new orders at this time. Dr. Robledo paged for antibiotic orders per sepsis protocol. 1640: Dr. Ling paged for elevated troponin from 0.5 to 1.5- orders received to give Heparin bolus and start pt on Heparin gtt protocol.
--- NOTE | 2018-06-15 18:43 | NUR ---
Dr. Griffiths paged RN back for routine consult. Orders received to decrease Cefepime from 2g to 1g Q8HRS IVP. AM labs ordered.
[2018-06-15] MEDS: PATCH REMOVAL. MC SCH (20:21)
[2018-06-15] MEDS: IPRATRPIUM/ALBUTEROL 0.5/2.5MG 3 ML NEBU. NEB SCH (20:26)
--- NOTE | 2018-06-15 20:47 | CONS ---
DATE OF CONSULTATION: 06/15/2018 REASON FOR CONSULTATION: Elevated troponin. HISTORY OF PRESENT ILLNESS: The patient is a 72-year-old man who apparently resides in a senior care and due to cognitive impairment and the mental capacity of a 10-year-old, his niece is his POA and there was some concern for possible seizure activity as the patient was unresponsive. The patient does have a prior history of being hypochondriac and apparently also has some suicidal ideations. Today apparently, he was noted to have some seizure-like activity, but apparently, per Neurology, no obvious signs of seizure or stroke-like activity. Upon arrival in the ER, he was noted to be tachyarrhythmic and was started on diltiazem for atrial fibrillation. He presently is somnolent and not responsive to any questions. PAST MEDICAL HISTORY: 1. Hypertension. 2. Cognitive impairment as noted above. 3. Possible seizure activity. FAMILY HISTORY: Not able to be obtained. SOCIAL HISTORY: No alcohol, tobacco or illicit drug use. CURRENT CARDIOVASCULAR MEDICATIONS: 1. Heparin drip. 2. Diltiazem drip. REVIEW OF SYSTEMS: Not able to be obtained. ALLERGIES: PENICILLIN AND ERYTHROMYCIN. PHYSICAL EXAMINATION: VITAL SIGNS: Mildly tachycardic with a heart rate of 110, afebrile, respiratory rate 30, blood pressure 107/61, 95% on room air. GENERAL: He is sedated and otherwise nonresponsive. HEART: Normal tones. LUNGS: Clear lung pedro anteriorly. ABDOMEN: Soft. EXTREMITIES: No edema. LABORATORY DATA: Hemoglobin and platelets within normal limits. White blood cell count elevated at 18.2. Creatinine elevated at 1.8. Troponin elevated at 1.5 from initial of 0.562. DIAGNOSTIC STUDIES: Chest x-ray reveals mild perihilar infiltrates. Head CT reveals degenerative changes, but no obvious acute findings. EKG reveals atrial fibrillation with rapid ventricular response. Telemetry currently suggestive of sinus rhythm with frequent PACs, although underlying atrial fibrillation cannot be ruled out. IMPRESSION: 1. Elevated troponin, likely secondary to acute stress of atrial fibrillation with rapid ventricular response, although the etiology of his nonresponsiveness is unclear. 2. Possible seizure, currently being evaluated by Neurology. 3. Hypertension. 4. Asthma. 5. Cognitive impairment. RECOMMENDATIONS: 1. For now, we will continue his diltiazem and heparin drips. 2. Obtain goals of care from his power of corporate associate attorney. 3. Obtain echocardiogram in the morning. 4. Based on his left ventricular function, could determine further treatment options. Thank you for this consultation. TRAN COREY MD DR: [email or web address]/jorge a JOB#: [id number] / [id number]
[2018-06-15] MEDS ORDERED: MAG HYDROX/ALUMINUM HYD/SIMETH 30 ML ORAL.SUSP PO PRN (21:00)
[2018-06-15] MEDS: CEFEPIME HCL IV Push 1 GM VIAL. IVP SCH (22:06)
[2018-06-16] VITALS (24 sets, daily range): BP systolic 86–158; BP diastolic 60–97
[2018-06-16] MEDS: IV NORMAL SALINE 1000ML BAG 1,000 ML IV SCH ×2 (02:01→09:04)
[2018-06-16] MEDS: CEFEPIME HCL IV Push 1 GM VIAL. IVP SCH ×3 (06:11→20:50)
[2018-06-16 06:28] LABS: BASO % 0 % (0-3); EOS % 0 % (0-3); HEMATOCRIT 38.2 % (39.0-53.0); HEMOGLOBIN 12.4 g/dL (13.0-17.5); LYMPH # 1.2 x10^3/uL (1.0-4.8); LYMPH % 6 % (24-48); MEAN CORPUSCULAR HEMOGLOBIN 31 pg (25-35); MEAN CORPUSCULAR HGB CONC 33 g/dL (31-37); MEAN CORPUSCULAR VOLUME 95 fL (79-100); MONO # 0.9 x10^3/uL (0.0-1.1); MONO % 4 % (0-9); NEUT % 90 % (31-73); PLATELET COUNT 172 x10^3/uL (140-400); RED BLOOD COUNT 4.04 x10^6/uL (4.30-5.70); RED CELL DISTRIBUTION WIDTH 14.7 % (11.5-14.5)
[2018-06-16 06:42] LABS: ALBUMIN 2.6 g/dL (3.4-5.0); CALCIUM 8.1 mg/dL (8.5-10.1); CREATININE 1.4 mg/dL (0.7-1.3); GFR 49.5; POTASSIUM 3.5 mmol/L (3.5-5.1); TOTAL PROTEIN 5.1 g/dL (6.4-8.2)
--- NOTE | 2018-06-16 08:44 | PDOC ---
PROGRESS NOTES Chief Complaint Chief Complaint severe sepsis ?pneumonia left possible seizure, post ictal Metabolic encephalopathy Acute hypercarbic respiratory failure, ICU admit, on BIPAP NSTEMI, 2/2 demand likely Afib RVR Acute diastolic CHF History of Present Illness History of Present Illness Mr. Hill, is a 72 year old male [facility] resident w/ PMHx severe cognitive deficits who was admitted after a seizure with prolonged unresponsiveness. Found with large leukocytosis, lactic acid elevation, troponin elevation with rapid breathing, admitted to ICU on BIPAP with heparin gtt and sepsis treatment. His niece notes he has the affect and mentation of a 10 year old or younger. He c/o lower back pain to me and is asking for food and water. More alert than last night. Plan: Can advance diet a bit Cont antibiotics BIPAP prn diurese Can step down to CVC if he remains alert for the next 3-4 hours Vitals Vitals Vital Signs Date Time Temp Pulse Resp B/P (MAP) Pulse Ox O2 Delivery O2 Flow Rate FiO2 06/16/18 08:00 122 18 111/71 (84) 94 Nasal Cannula 4.0 06/16/18 07:00 98.2 98.2 Physical Exam General: mild distress, Other (not following commands, awakens and holds my hand) Abdomen: Normal bowel sounds, Soft Extremities: No edema, Normal pulses Skin: No breakdown, Other (poor feet and nail care, right) Labs LABS Laboratory Tests Test 06/15/18 09:42 06/15/18 09:49 06/15/18 09:55 06/15/18 10:13 Glucose (Fingerstick) 140 mg/dL (70-99) White Blood Count 18.2 x10^3/uL (4.0-11.0) Red Blood Count 5.08 x10^6/uL (4.30-5.70) Hemoglobin 15.8 g/dL (13.0-17.5) Hematocrit 48.2 % (39.0-53.0) Mean Corpuscular Volume 95 fL (79-100) Mean Corpuscular Hemoglobin 31 pg (25-35) Mean Corpuscular Hemoglobin Concent 33 g/dL (31-37) Red Cell Distribution Width 14.6 % (11.5-14.5) Platelet Count 224 x10^3/uL (140-400) Neutrophils (%) (Auto) 65 % (31-73) Lymphocytes (%) (Auto) 28 % (24-48) Monocytes (%) (Auto) 5 % (0-9) Eosinophils (%) (Auto) 2 % (0-3) Basophils (%) (Auto) 1 % (0-3) Neutrophils # (Auto) 11.8 x10^3uL (1.8-7.7) Lymphocytes # (Auto) 5.0 x10^3/uL (1.0-4.8) Monocytes # (Auto) 0.9 x10^3/uL (0.0-1.1) Eosinophils # (Auto) 0.4 x10^3/uL (0.0-0.7) Basophils # (Auto) 0.1 x10^3/uL (0.0-0.2) Prothrombin Time 12.9 SEC (11.7-14.0) Prothromb Time International Ratio 1.0 (0.8-1.1) Sodium Level 142 mmol/L (136-145) Potassium Level 4.0 mmol/L (3.5-5.1) Chloride Level 102 mmol/L (98-107) Carbon Dioxide Level 25 mmol/L (21-32) Anion Gap 15 (6-14) Blood Urea Nitrogen 21 mg/dL (8-26) Creatinine 1.8 mg/dL (0.7-1.3) Estimated GFR (Cockcroft-Gault) 37.1 BUN/Creatinine Ratio 12 (6-20) Glucose Level 133 mg/dL (70-99) Lactic Acid Level 3.0 mmol/L (0.4-2.0) Calcium Level 9.7 mg/dL (8.5-10.1) Magnesium Level 1.8 mg/dL (1.8-2.4) Total Bilirubin 0.9 mg/dL (0.2-1.0) Aspartate Amino Transf (AST/SGOT) 23 U/L (15-37) Alanine Aminotransferase (ALT/SGPT) 15 U/L (16-63) Alkaline Phosphatase 98 U/L (46-116) Creatine Kinase 77 U/L (39-308) Troponin I Quantitative 0.562 ng/mL (0.000-0.055) Total Protein 7.4 g/dL (6.4-8.2) Albumin 3.7 g/dL (3.4-5.0) Albumin/Globulin Ratio 1.0 (1.0-1.7) O2 Saturation 90 % (92-99) Arterial Blood pH 7.47 (7.35-7.45) Arterial Blood pCO2 at Patient Temp 30 mmHg (35-46) Arterial Blood pO2 at Patient Temp 55 mmHg (65-108) Arterial Blood HCO3 22 mmol/L (21-28) Arterial Blood Base Excess -1 mmol/L (-3-3) FiO2 28 Influenza Type A Antigen Negative (NEGATIVE) Influenza Type B Antigen Negative (NEGATIVE) Urine Collection Type Unknown Urine Color Yellow Urine Clarity Clear Urine pH 8.0 Urine Specific [place] 1.015 Urine Protein 30 mg/dL (NEG-TRACE) Urine Glucose (UA) Negative mg/dL (NEG) Urine Ketones (Stick) Trace mg/dL (NEG) Urine Blood Moderate (NEG) Urine Nitrite Negative (NEG) Urine Bilirubin Negative (NEG) Urine Urobilinogen Dipstick 0.2 mg/dL (0.2 mg/dL) Urine Leukocyte Esterase Negative (NEG) Urine RBC 11-20 /HPF (0-2) Urine WBC 1-4 /HPF (0-4) Urine Squamous Epithelial Cells Occ /LPF Urine Bacteria Few /HPF (0-FEW) Urine Mucus Mod /LPF Test 06/15/18 14:22 06/15/18 23:00 06/16/18 05:00 06/16/18 06:00 Lactic Acid Level 2.9 mmol/L (0.4-2.0) 2.4 mmol/L (0.4-2.0) Troponin I Quantitative 1.515 ng/mL (0.000-0.055) Heparin Anti-Xa Act, Unfractionated 0.54 IU/mL (0.30-0.70) 0.38 IU/mL (0.30-0.70) White Blood Count 20.0 x10^3/uL (4.0-11.0) Red Blood Count 4.04 x10^6/uL (4.30-5.70) Hemoglobin 12.4 g/dL (13.0-17.5) Hematocrit 38.2 % (39.0-53.0) Mean Corpuscular Volume 95 fL (79-100) Mean Corpuscular Hemoglobin 31 pg (25-35) Mean Corpuscular Hemoglobin Concent 33 g/dL (31-37) Red Cell Distribution Width 14.7 % (11.5-14.5) Platelet Count 172 x10^3/uL (140-400) Neutrophils (%) (Auto) 90 % (31-73) Lymphocytes (%) (Auto) 6 % (24-48) Monocytes (%) (Auto) 4 % (0-9) Eosinophils (%) (Auto) 0 % (0-3) Basophils (%) (Auto) 0 % (0-3) Neutrophils # (Auto) 18.0 x10^3uL (1.8-7.7) Lymphocytes # (Auto) 1.2 x10^3/uL (1.0-4.8) Monocytes # (Auto) 0.9 x10^3/uL (0.0-1.1) Eosinophils # (Auto) 0.0 x10^3/uL (0.0-0.7) Basophils # (Auto) 0.0 x10^3/uL (0.0-0.2) Sodium Level 142 mmol/L (136-145) Potassium Level 3.5 mmol/L (3.5-5.1) Chloride Level 107 mmol/L (98-107) Carbon Dioxide Level 20 mmol/L (21-32) Anion Gap 15 (6-14) Blood Urea Nitrogen 24 mg/dL (8-26) Creatinine 1.4 mg/dL (0.7-1.3) Estimated GFR (Cockcroft-Gault) 49.5 BUN/Creatinine Ratio 17 (6-20) Glucose Level 230 mg/dL (70-99) Calcium Level 8.1 mg/dL (8.5-10.1) Total Bilirubin 1.0 mg/dL (0.2-1.0) Aspartate Amino Transf (AST/SGOT) 26 U/L (15-37) Alanine Aminotransferase (ALT/SGPT) 14 U/L (16-63) Alkaline Phosphatase 56 U/L (46-116) Total Protein 5.1 g/dL (6.4-8.2) Albumin 2.6 g/dL (3.4-5.0) Albumin/Globulin Ratio 1.0 (1.0-1.7) Procalcitonin 6.28 ng/mL (0.00-0.10) Assessment and Plan Assessmemt and Plan Problems Medical Problems: (1) Acute respiratory distress Status: Acute (2) Adrenal insufficiency Status: Acute (3) Altered level of consciousness Status: Acute (4) Atrial fibrillation with RVR Status: Acute (5) HCAP (healthcare-associated pneumonia) Status: Acute (6) New onset seizure Status: Acute (7) Renal insufficiency Status: Acute (8) Sepsis Status: Acute Comment Review of Relevant I have reviewed the following items tricia (where applicable) has been applied. Labs Laboratory Tests Test 06/15/18 09:42 06/15/18 09:49 06/15/18 09:55 06/15/18 10:13 Glucose (Fingerstick) 140 mg/dL (70-99) White Blood Count 18.2 x10^3/uL (4.0-11.0) Red Blood Count 5.08 x10^6/uL (4.30-5.70) Hemoglobin 15.8 g/dL (13.0-17.5) Hematocrit 48.2 % (39.0-53.0) Mean Corpuscular Volume 95 fL (79-100) Mean Corpuscular Hemoglobin 31 pg (25-35) Mean Corpuscular Hemoglobin Concent 33 g/dL (31-37) Red Cell Distribution Width 14.6 % (11.5-14.5) Platelet Count 224 x10^3/uL (140-400) Neutrophils (%) (Auto) 65 % (31-73) Lymphocytes (%) (Auto) 28 % (24-48) Monocytes (%) (Auto) 5 % (0-9) Eosinophils (%) (Auto) 2 % (0-3) Basophils (%) (Auto) 1 % (0-3) Neutrophils # (Auto) 11.8 x10^3uL (1.8-7.7) Lymphocytes # (Auto) 5.0 x10^3/uL (1.0-4.8) Monocytes # (Auto) 0.9 x10^3/uL (0.0-1.1) Eosinophils # (Auto) 0.4 x10^3/uL (0.0-0.7) Basophils # (Auto) 0.1 x10^3/uL (0.0-0.2) Prothrombin Time 12.9 SEC (11.7-14.0) Prothromb Time International Ratio 1.0 (0.8-1.1) Sodium Level 142 mmol/L (136-145) Potassium Level 4.0 mmol/L (3.5-5.1) Chloride Level 102 mmol/L (98-107) Carbon Dioxide Level 25 mmol/L (21-32) Anion Gap 15 (6-14) Blood Urea Nitrogen 21 mg/dL (8-26) Creatinine 1.8 mg/dL (0.7-1.3) Estimated GFR (Cockcroft-Gault) 37.1 BUN/Creatinine Ratio 12 (6-20) Glucose Level 133 mg/dL (70-99) Lactic Acid Level 3.0 mmol/L (0.4-2.0) Calcium Level 9.7 mg/dL (8.5-10.1) Magnesium Level 1.8 mg/dL (1.8-2.4) Total Bilirubin 0.9 mg/dL (0.2-1.0) Aspartate Amino Transf (AST/SGOT) 23 U/L (15-37) Alanine Aminotransferase (ALT/SGPT) 15 U/L (16-63) Alkaline Phosphatase 98 U/L (46-116) Creatine Kinase 77 U/L (39-308) Troponin I Quantitative 0.562 ng/mL (0.000-0.055) Total Protein 7.4 g/dL (6.4-8.2) Albumin 3.7 g/dL (3.4-5.0) Albumin/Globulin Ratio 1.0 (1.0-1.7) O2 Saturation 90 % (92-99) Arterial Blood pH 7.47 (7.35-7.45) Arterial Blood pCO2 at Patient Temp 30 mmHg (35-46) Arterial Blood pO2 at Patient Temp 55 mmHg (65-108) Arterial Blood HCO3 22 mmol/L (21-28) Arterial Blood Base Excess -1 mmol/L (-3-3) FiO2 28 Influenza Type A Antigen Negative (NEGATIVE) Influenza Type B Antigen Negative (NEGATIVE) Urine Collection Type Unknown Urine Color Yellow Urine Clarity Clear Urine pH 8.0 Urine Specific [place] 1.015 Urine Protein 30 mg/dL (NEG-TRACE) Urine Glucose (UA) Negative mg/dL (NEG) Urine Ketones (Stick) Trace mg/dL (NEG) Urine Blood Moderate (NEG) Urine Nitrite Negative (NEG) Urine Bilirubin Negative (NEG) Urine Urobilinogen Dipstick 0.2 mg/dL (0.2 mg/dL) Urine Leukocyte Esterase Negative (NEG) Urine RBC 11-20 /HPF (0-2) Urine WBC 1-4 /HPF (0-4) Urine Squamous Epithelial Cells Occ /LPF Urine Bacteria Few /HPF (0-FEW) Urine Mucus Mod /LPF Test 06/15/18 14:22 06/15/18 23:00 06/16/18 05:00 06/16/18 06:00 Lactic Acid Level 2.9 mmol/L (0.4-2.0) 2.4 mmol/L (0.4-2.0) Troponin I Quantitative 1.515 ng/mL (0.000-0.055) Heparin Anti-Xa Act, Unfractionated 0.54 IU/mL (0.30-0.70) 0.38 IU/mL (0.30-0.70) White Blood Count 20.0 x10^3/uL (4.0-11.0) Red Blood Count 4.04 x10^6/uL (4.30-5.70) Hemoglobin 12.4 g/dL (13.0-17.5) Hematocrit 38.2 % (39.0-53.0) Mean Corpuscular Volume 95 fL (79-100) Mean Corpuscular Hemoglobin 31 pg (25-35) Mean Corpuscular Hemoglobin Concent 33 g/dL (31-37) Red Cell Distribution Width 14.7 % (11.5-14.5) Platelet Count 172 x10^3/uL (140-400) Neutrophils (%) (Auto) 90 % (31-73) Lymphocytes (%) (Auto) 6 % (24-48) Monocytes (%) (Auto) 4 % (0-9) Eosinophils (%) (Auto) 0 % (0-3) Basophils (%) (Auto) 0 % (0-3) Neutrophils # (Auto) 18.0 x10^3uL (1.8-7.7) Lymphocytes # (Auto) 1.2 x10^3/uL (1.0-4.8) Monocytes # (Auto) 0.9 x10^3/uL (0.0-1.1) Eosinophils # (Auto) 0.0 x10^3/uL (0.0-0.7) Basophils # (Auto) 0.0 x10^3/uL (0.0-0.2) Sodium Level 142 mmol/L (136-145) Potassium Level 3.5 mmol/L (3.5-5.1) Chloride Level 107 mmol/L (98-107) Carbon Dioxide Level 20 mmol/L (21-32) Anion Gap 15 (6-14) Blood Urea Nitrogen 24 mg/dL (8-26) Creatinine 1.4 mg/dL (0.7-1.3) Estimated GFR (Cockcroft-Gault) 49.5 BUN/Creatinine Ratio 17 (6-20) Glucose Level 230 mg/dL (70-99) Calcium Level 8.1 mg/dL (8.5-10.1) Total Bilirubin 1.0 mg/dL (0.2-1.0) Aspartate Amino Transf (AST/SGOT) 26 U/L (15-37) Alanine Aminotransferase (ALT/SGPT) 14 U/L (16-63) Alkaline Phosphatase 56 U/L (46-116) Total Protein 5.1 g/dL (6.4-8.2) Albumin 2.6 g/dL (3.4-5.0) Albumin/Globulin Ratio 1.0 (1.0-1.7) Procalcitonin 6.28 ng/mL (0.00-0.10) Laboratory Tests Test 06/15/18 09:42 06/15/18 09:49 06/15/18 09:55 06/15/18 10:13 Glucose (Fingerstick) 140 mg/dL (70-99) White Blood Count 18.2 x10^3/uL (4.0-11.0) Red Blood Count 5.08 x10^6/uL (4.30-5.70) Hemoglobin 15.8 g/dL (13.0-17.5) Hematocrit 48.2 % (39.0-53.0) Mean Corpuscular Volume 95 fL (79-100) Mean Corpuscular Hemoglobin 31 pg (25-35) Mean Corpuscular Hemoglobin Concent 33 g/dL (31-37) Red Cell Distribution Width 14.6 % (11.5-14.5) Platelet Count 224 x10^3/uL (140-400) Neutrophils (%) (Auto) 65 % (31-73) Lymphocytes (%) (Auto) 28 % (24-48) Monocytes (%) (Auto) 5 % (0-9) Eosinophils (%) (Auto) 2 % (0-3) Basophils (%) (Auto) 1 % (0-3) Neutrophils # (Auto) 11.8 x10^3uL (1.8-7.7) Lymphocytes # (Auto) 5.0 x10^3/uL (1.0-4.8) Monocytes # (Auto) 0.9 x10^3/uL (0.0-1.1) Eosinophils # (Auto) 0.4 x10^3/uL (0.0-0.7) Basophils # (Auto) 0.1 x10^3/uL (0.0-0.2) Prothrombin Time 12.9 SEC (11.7-14.0) Prothromb Time International Ratio 1.0 (0.8-1.1) Sodium Level 142 mmol/L (136-145) Potassium Level 4.0 mmol/L (3.5-5.1) Chloride Level 102 mmol/L (98-107) Carbon Dioxide Level 25 mmol/L (21-32) Anion Gap 15 (6-14) Blood Urea Nitrogen 21 mg/dL (8-26) Creatinine 1.8 mg/dL (0.7-1.3) Estimated GFR (Cockcroft-Gault) 37.1 BUN/Creatinine Ratio 12 (6-20) Glucose Level 133 mg/dL (70-99) Lactic Acid Level 3.0 mmol/L (0.4-2.0) Calcium Level 9.7 mg/dL (8.5-10.1) Magnesium Level 1.8 mg/dL (1.8-2.4) Total Bilirubin 0.9 mg/dL (0.2-1.0) Aspartate Amino Transf (AST/SGOT) 23 U/L (15-37) Alanine Aminotransferase (ALT/SGPT) 15 U/L (16-63) Alkaline Phosphatase 98 U/L (46-116) Creatine Kinase 77 U/L (39-308) Troponin I Quantitative 0.562 ng/mL (0.000-0.055) Total Protein 7.4 g/dL (6.4-8.2) Albumin 3.7 g/dL (3.4-5.0) Albumin/Globulin Ratio 1.0 (1.0-1.7) O2 Saturation 90 % (92-99) Arterial Blood pH 7.47 (7.35-7.45) Arterial Blood pCO2 at Patient Temp 30 mmHg (35-46) Arterial Blood pO2 at Patient Temp 55 mmHg (65-108) Arterial Blood HCO3 22 mmol/L (21-28) Arterial Blood Base Excess -1 mmol/L (-3-3) FiO2 28 Influenza Type A Antigen Negative (NEGATIVE) Influenza Type B Antigen Negative (NEGATIVE) Urine Collection Type Unknown Urine Color Yellow Urine Clarity Clear Urine pH 8.0 Urine Specific [place] 1.015 Urine Protein 30 mg/dL (NEG-TRACE) Urine Glucose (UA) Negative mg/dL (NEG) Urine Ketones (Stick) Trace mg/dL (NEG) Urine Blood Moderate (NEG) Urine Nitrite Negative (NEG) Urine Bilirubin Negative (NEG) Urine Urobilinogen Dipstick 0.2 mg/dL (0.2 mg/dL) Urine Leukocyte Esterase Negative (NEG) Urine RBC 11-20 /HPF (0-2) Urine WBC 1-4 /HPF (0-4) Urine Squamous Epithelial Cells Occ /LPF Urine Bacteria Few /HPF (0-FEW) Urine Mucus Mod /LPF Test 06/15/18 14:22 06/15/18 23:00 06/16/18 05:00 06/16/18 06:00 Lactic Acid Level 2.9 mmol/L (0.4-2.0) 2.4 mmol/L (0.4-2.0) Troponin I Quantitative 1.515 ng/mL (0.000-0.055) Heparin Anti-Xa Act, Unfractionated 0.54 IU/mL (0.30-0.70) 0.38 IU/mL (0.30-0.70) White Blood Count 20.0 x10^3/uL (4.0-11.0) Red Blood Count 4.04 x10^6/uL (4.30-5.70) Hemoglobin 12.4 g/dL (13.0-17.5) Hematocrit 38.2 % (39.0-53.0) Mean Corpuscular Volume 95 fL (79-100) Mean Corpuscular Hemoglobin 31 pg (25-35) Mean Corpuscular Hemoglobin Concent 33 g/dL (31-37) Red Cell Distribution Width 14.7 % (11.5-14.5) Platelet Count 172 x10^3/uL (140-400) Neutrophils (%) (Auto) 90 % (31-73) Lymphocytes (%) (Auto) 6 % (24-48) Monocytes (%) (Auto) 4 % (0-9) Eosinophils (%) (Auto) 0 % (0-3) Basophils (%) (Auto) 0 % (0-3) Neutrophils # (Auto) 18.0 x10^3uL (1.8-7.7) Lymphocytes # (Auto) 1.2 x10^3/uL (1.0-4.8) Monocytes # (Auto) 0.9 x10^3/uL (0.0-1.1) Eosinophils # (Auto) 0.0 x10^3/uL (0.0-0.7) Basophils # (Auto) 0.0 x10^3/uL (0.0-0.2) Sodium Level 142 mmol/L (136-145) Potassium Level 3.5 mmol/L (3.5-5.1) Chloride Level 107 mmol/L (98-107) Carbon Dioxide Level 20 mmol/L (21-32) Anion Gap 15 (6-14) Blood Urea Nitrogen 24 mg/dL (8-26) Creatinine 1.4 mg/dL (0.7-1.3) Estimated GFR (Cockcroft-Gault) 49.5 BUN/Creatinine Ratio 17 (6-20) Glucose Level 230 mg/dL (70-99) Calcium Level 8.1 mg/dL (8.5-10.1) Total Bilirubin 1.0 mg/dL (0.2-1.0) Aspartate Amino Transf (AST/SGOT) 26 U/L (15-37) Alanine Aminotransferase (ALT/SGPT) 14 U/L (16-63) Alkaline Phosphatase 56 U/L (46-116) Total Protein 5.1 g/dL (6.4-8.2) Albumin 2.6 g/dL (3.4-5.0) Albumin/Globulin Ratio 1.0 (1.0-1.7) Procalcitonin 6.28 ng/mL (0.00-0.10) Medications Current Medications Sodium Chloride 1,000 ml @ 1,000 mls/hr Q1H IV Last administered on 06/15/18at 09:42; Start 06/15/18 at 09:42; Stop 06/15/18 at 10:41; Status DC Sodium Chloride 2,270 ml @ 378.333 mls/hr 1X ONCE IV Last administered on at 10:26; Start 06/15/18 at 09:45; Stop 06/15/18 at 15:44; Status DC Acetaminophen (Tylenol Supp) 650 mg 1X ONCE NM Last administered on 06/15/18at 10:17; Start 06/15/18 at 09:45; Stop 06/15/18 at 09:54; Status DC Cefepime HCl (Maxipime) 1 gm 1X ONCE IVP Last administered on 06/15/18at 10:16 ; Start 06/15/18 at 10:00; Stop 06/15/18 at 10:04; Status DC Vancomycin HCl 250 ml @ 250 mls/hr 1X ONCE IV ; Start 06/15/18 at 10:00; Stop 06/15/18 at 10:59; Status UNV Vancomycin HCl 2 gm/Sodium Chloride 500 ml @ 250 mls/hr ONCE ONCE IV Last administered on 06/15/18at 10:27; Start 06/15/18 at 10:30; Stop 06/15/18 at 12:29 ; Status DC Methylprednisolone Sodium Succinate (SOLU-Medrol 125MG VIAL) 250 mg 1X ONCE IV Last administered on 06/15/18at 09:57; Start 06/15/18 at 10:00; Stop 06/15/18 at 10:01; Status DC Albuterol/ Ipratropium (Duoneb) 3 ml 1X ONCE NEB Last administered on at 10:50; Start 06/15/18 at 10:00; Stop 06/15/18 at 10:01; Status DC Methylprednisolone Sodium Succinate (SOLU-Medrol 125MG VIAL) 125 mg STK-MED ONCE .ROUTE ; Start 06/15/18 at 09:54; Stop 06/15/18 at 09:55; Status DC Diltiazem HCl (Cardizem Iv Push) 10 mg 1X ONCE IVP Last administered on at 11:09; Start 06/15/18 at 10:15; Stop 06/15/18 at 10:16; Status DC Lorazepam (Ativan) 1 mg 1X ONCE IV Last administered on 06/15/18at 10:37; Start 06/15/18 at 10:45; Stop 06/15/18 at 10:46; Status DC Sodium Chloride 1,000 ml @ 150 mls/hr Q6H40M IV Last administered on at 02:01; Start 06/15/18 at 11:58; Stop 06/16/18 at 11:57 Diltiazem HCl 125 mg/Dextrose 125 ml @ 5 mls/hr CONT PRN IV SEE I/O RECORD Last administered on 06/15/18at 22:06; Start 06/15/18 at 12:15 Baclofen (Lioresal) 5 mg TID PO ; Start 06/15/18 at 14:00 Vitamin D (Vitamin D3) 2,000 unit DAILY PO ; Start 06/15/18 at 15:00 Famotidine (Pepcid) 20 mg QHS PO ; Start 06/15/18 at 15:00 Al Hydroxide/Mg Hydroxide (Mylanta Plus Xs) 30 ml PRN Q12HRS PRN PO HEARTBURN / GAS; Start 06/15/18 at 21:00 Magnesium Hydroxide (Milk Of Magnesia) 400 mg PRN QHS PRN PO CONSTIPATION; Start 06/15/18 at 13:45 Nitroglycerin (Nitrostat) 0.4 mg PRN Q5MIN PRN SL CHEST PAIN; Start 06/15/18 at 13:45 Tramadol HCl (Ultram) 50 mg PRN Q6HRS PRN PO PAIN; Start 06/15/18 at 13:45 Duloxetine HCl (Cymbalta) 60 mg DAILY PO ; Start 06/15/18 at 15:00 Lidocaine (Lidoderm) 1 patch DAILY TD ; Start 06/15/18 at 15:00 Ondansetron HCl (Zofran Odt) 4 mg PRN Q8HRS PRN PO NAUSEA/VOMITING; Start 06/15 at 14:15 Polyethylene Glycol (miraLAX PACKET) 17 gm DAILY PO ; Start 06/15/18 at 15:00 Miscellaneous (Lidoderm Patch Removal) 1 ea QHS MC ; Start 06/15/18 at 21:00 Vancomycin HCl (Vanco Per Pharmacy) 1 each PRN DAILY PRN MC SEE COMMENTS Last administered on 06/15/18at 15:53; Start 06/15/18 at 15:30 Cefepime HCl (Maxipime) 2 gm Q8HRS IVP Last administered on 06/15/18at 15:50; Start 06/15/18 at 15:30; Stop 06/15/18 at 18:43; Status DC Vancomycin HCl 1.5 gm/Sodium Chloride 500 ml @ 250 mls/hr Q24H IV ; Start 06/16 at 11:00 Vancomycin HCl (Vancomycin Trough Level) 1 each 1X ONCE MC ; Start 06/17/18 at 10:30; Stop 06/17/18 at 10:31 Albuterol/ Ipratropium (Duoneb) 3 ml RTQID NEB Last administered on 06/15/18at 20:26; Start 06/15/18 at 20:00 Prednisone (Prednisone) 20 mg DAILY PO ; Start 06/16/18 at 09:00 Heparin Sodium (Porcine) (Heparin Sodium) 4,000 unit 1X ONCE IV Last administered on 06/15/18at 16:55; Start 06/15/18 at 16:45; Stop 06/15/18 at 16:51 ; Status DC Heparin Sodium/ Dextrose 500 ml @ 0 mls/hr CONT PRN IV SEE I/O RECORD Last administered on 06/15/18at 16:57; Start 06/15/18 at 16:45 Heparin Sodium (Porcine) (Heparin Sodium) 2,100 unit PRN Q6HRS PRN IV FOR UFH LEVEL LESS THAN 0.2; Start 06/15/18 at 16:45 Info (Anti-Coagulation Monitoring By Pharmacy) 1 each PRN DAILY PRN MC SEE COMMENTS; Start 06/15/18 at 17:00 Cefepime HCl (Maxipime) 1 gm Q8HRS IVP Last administered on 06/16/18at 06:11; Start 06/15/18 at 22:00 Active Scripts Active Meloxicam 7.5 Mg Tablet 7.5 Mg PO DAILY Zofran (Ondansetron Hcl) 4 Mg Tablet 4 Mg PO PRN TID PRN nausea/vomiting Reported Tramadol Hcl 50 Mg Tablet 50 Mg PO Q6HRS PRN NITROGLYCERIN SubLingual (Nitroglycerin) 0.4 Mg Tab.subl 0.4 Mg SL PRN Q5MIN PRN Milk Of Magnesia (Magnesium Hydroxide) 400 Mg/5 Ml Oral.susp 400 Mg PO PRN QHS PRN [place] Greaseless Cream (Methyl Salicylate/Menthol) 57 Gm Cream..g. 57 Gm TP PRN Q1HR PRN Vitamin D3 (Cholecalciferol (Vitamin D3)) 1,000 Unit Tablet 2,000 Unit PO DAILY Vitamin B-12 (Cyanocobalamin (Vitamin B-12)) 1,000 Mcg Tablet 1 Tab PO DAILY Trazodone Hcl 50 Mg Tablet 50 Mg PO HS Miralax (Polyethylene Glycol 3350) 17 Gm Powd.pack 1 Pkt PO DAILY Maalox Maximum Strength Susp (Mag Hydrox/Al Hydrox/Simeth) 355 Ml Oral.susp 355 Ml PO Q12HR Cortef (Hydrocortisone) 20 Mg Tablet 20 Mg PO AFTRNOON PRN Cortef (Hydrocortisone) 10 Mg Tablet 15 Mg PO DAILY Pepcid (Famotidine) 20 Mg Tablet 20 Mg PO BID Cymbalta (Duloxetine Hcl) 60 Mg Capsule. 1 Cap PO DAILY Baclofen 10 Mg Tablet 5 Mg PO TID Lidocaine 1 Each Adh..patch 1 Each TP DAILY Vitals/I & O Vital Sign - Last 24 Hours 06/15/18 06/15/18 06/15/18 06/15/18 09:36 10:20 10:21 10:31 Temp 102.8 102.0 102.8 102.0 Pulse 151 152 144 Resp 48 55 B/P (MAP) 142/70 (94) Pulse Ox 91 88 85 O2 Delivery Room Air 06/15/18 06/15/18 06/15/18 06/15/18 10:41 10:45 10:51 11:01 Pulse 146 158 142 Resp 57 46 49 Pulse Ox 92 99 98 O2 Delivery BiPAP/CPAP 06/15/18 06/15/18 06/15/18 06/15/18 11:08 11:09 11:11 11:16 Pulse 138 155 148 134 Resp 49 50 51 B/P (MAP) 126/78 Pulse Ox 98 99 98 06/15/18 06/15/18 06/15/18 06/15/18 11:21 11:26 11:31 11:36 Pulse 134 134 132 126 Resp 49 50 51 54 Pulse Ox 97 97 96 96 06/15/18 06/15/18 06/15/18 06/15/18 11:41 11:46 11:51 11:56 Pulse 132 130 130 132 Resp 56 50 57 56 Pulse Ox 95 96 95 91 06/15/18 06/15/18 06/15/18 06/15/18 12:01 12:06 12:11 12:16 Pulse 132 132 132 132 Resp 59 56 60 Pulse Ox 91 91 85 86 06/15/18 06/15/18 06/15/18 06/15/18 12:30 12:30 12:45 12:58 Temp 103.2 103.2 Pulse 130 122 Resp 30 30 B/P (MAP) 126/90 (102) 105/66 (79) Pulse Ox 94 93 95 O2 Delivery BiPAP/CPAP BiPAP/CPAP BiPAP/CPAP Bi-pap 06/15/18 06/15/18 06/15/18 06/15/18 13:00 13:15 13:30 13:32 Pulse 122 120 118 Resp 30 32 30 B/P (MAP) 106/67 (80) 104/70 (81) 113/70 (84) Pulse Ox 95 95 94 95 O2 Delivery BiPAP/CPAP BiPAP/CPAP BiPAP/CPAP BiPAP/CPAP 06/15/18 06/15/18 06/15/18 06/15/18 14:00 14:30 15:30 15:56 Pulse 114 112 113 Resp 33 31 25 B/P (MAP) 108/81 (90) 137/65 (89) 101/66 (78) Pulse Ox 98 97 99 95 O2 Delivery BiPAP/CPAP BiPAP/CPAP BiPAP/CPAP Nasal Cannula O2 Flow Rate 4.0 06/15/18 06/15/18 06/15/18 06/15/18 16:00 16:00 16:00 17:00 Temp 98.1 98.1 Pulse 103 113 Resp 30 29 B/P (MAP) 136/73 (94) 99/74 (82) Pulse Ox 93 92 O2 Delivery Nasal Cannula Nasal Cannula Nasal Cannula O2 Flow Rate 4.0 4.0 4.0 4.0 06/15/18 06/15/18 06/15/18 06/15/18 18:00 19:00 20:00 20:00 Temp 100.2 100.2 Pulse 114 110 108 Resp 31 32 34 B/P (MAP) 114/73 (87) 107/61 (76) 101/88 (92) Pulse Ox 91 95 4 O2 Delivery Nasal Cannula Room Air Nasal Cannula Nasal Cannula O2 Flow Rate 4.0 4.0 06/15/18 06/15/18 06/15/18 06/15/18 20:28 21:00 22:12 23:02 Pulse 109 108 106 Resp 24 29 28 B/P (MAP) 122/60 (80) 137/86 (103) 140/87 (104) Pulse Ox 95 94 96 92 O2 Delivery Nasal Cannula Nasal Cannula Nasal Cannula Nasal Cannula O2 Flow Rate 3.0 4.0 4.0 4.0 06/15/18 06/16/18 06/16/18 06/16/18 23:45 00:02 01:00 02:05 Temp 99.2 99.2 Pulse 111 103 117 Resp 34 33 27 B/P (MAP) 125/75 (92) 121/71 (88) 105/67 (80) Pulse Ox 96 96 96 O2 Delivery Nasal Cannula Nasal Cannula Nasal Cannula Nasal Cannula O2 Flow Rate 4.0 4.0 4.0 4.0 06/16/18 06/16/18 06/16/18 06/16/18 03:00 04:00 04:05 05:00 Temp 98.9 98.9 Pulse 114 108 102 Resp 34 37 28 B/P (MAP) 104/78 (87) 102/63 (76) 96/64 (75) Pulse Ox 91 92 93 O2 Delivery Nasal Cannula Nasal Cannula Nasal Cannula Nasal Cannula O2 Flow Rate 4.0 4.0 4.0 4.0 06/16/18 06/16/18 06/16/18 06/16/18 06:00 07:00 07:37 07:41 Temp 98.2 98.2 Pulse 119 133 Resp 31 18 B/P (MAP) 100/71 (81) 108/71 (83) Pulse Ox 96 96 O2 Delivery Nasal Cannula Nasal Cannula Nasal Cannula O2 Flow Rate 4.0 4.0 4.0 4.0 06/16/18 08:00 Pulse 122 Resp 18 B/P (MAP) 111/71 (84) Pulse Ox 94 O2 Delivery Nasal Cannula O2 Flow Rate 4.0 Intake and Output 406/15/18 06/16/18 15:00 23:00 07:00 Intake Total 2500 ml 914 ml 2073 ml Output Total 250 ml 410 ml 545 ml Balance 2250 ml 504 ml 1528 ml SKYLAR GUZMÁN MD Jun 16, 2018 08:44
[2018-06-16] MEDS: IPRATRPIUM/ALBUTEROL 0.5/2.5MG 3 ML NEBU. NEB SCH ×4 (08:49→19:50)
[2018-06-16] MEDS: LIDOCAINE (700MG/PATCH) PATCH. TD SCH (09:04)
[2018-06-16] MEDS: dilTIAZem INJ 125 MG in IV DEXTROSE 5% 100ML 100 ML IV PRN (09:04)
[2018-06-16] MEDS: BACLOFEN 10 MG TABLET. PO SCH ×3 (09:05→20:24)
[2018-06-16] MEDS: POLYETHYLENE GLYCOL 3350 17 GM PACKET. PO SCH (09:05)
[2018-06-16] MEDS: DULoxetine HCL 30 MG CAPSULE.DR PO SCH (09:05)
[2018-06-16] MEDS: CHOLECALCIFEROL (VITAMIN D3) 1,000 UNIT TABLET PO SCH (09:05)
[2018-06-16] MEDS: predniSONE 20 MG TABLET PO SCH (09:05)
[2018-06-16] MEDS: DOXYCYCLINE HYCLATE 100 MG TABLET PO SCH ×2 (09:10→20:24)
--- NOTE | 2018-06-16 09:10 | PDOC ---
Infectious Disease Note Vital Signs: Vital Signs Vital Signs Date Time Temp Pulse Resp B/P (MAP) Pulse Ox O2 Delivery O2 Flow Rate FiO2 06/16/18 08:00 122 18 111/71 (84) 94 Nasal Cannula 4.0 06/16/18 07:00 98.2 98.2 Medications: Inpatient Meds: Current Medications Medications (Trade) Dose Ordered Sig/Diaz Start Time Stop Time Status Last Admin Dose Admin Acetaminophen (Tylenol Supp) 650 mg 1X ONCE 06/15/18 09:45 06/15/18 09:54 DC 06/15/18 10:17 650 MG Al Hydroxide/Mg Hydroxide (Mylanta Plus Xs) 30 ml PRN Q12HRS PRN 06/15/18 21:00 Albuterol/ Ipratropium (Duoneb) 3 ml RTQID 06/15/18 20:00 06/15/18 20:26 3 ML Baclofen (Lioresal) 5 mg TID 06/15/18 14:00 Cefepime HCl (Maxipime) 1 gm Q8HRS 06/15/18 22:00 06/16/18 06:11 1 GM Diltiazem HCl (Cardizem Iv Push) 10 mg 1X ONCE 06/15/18 10:15 06/15/18 10:16 DC 06/15/18 11:09 10 MG Diltiazem HCl 125 mg/Dextrose 125 ml @ 5 mls/hr CONT PRN 06/15/18 12:15 06/15/18 22:06 10 MLS/HR Duloxetine HCl (Cymbalta) 60 mg DAILY 06/15/18 15:00 Famotidine (Pepcid) 20 mg QHS 06/15/18 15:00 Heparin Sodium (Porcine) (Heparin Sodium) 2,100 unit PRN Q6HRS PRN 06/15/18 16:45 Heparin Sodium/ Dextrose 500 ml @ 0 mls/hr CONT PRN 06/15/18 16:45 06/15/18 16:57 20.4 MLS/HR Info (Anti-Coagulation Monitoring By Pharmacy) 1 each PRN DAILY PRN 06/15/18 17:00 Lidocaine (Lidoderm) 1 patch DAILY 06/15/18 15:00 Lorazepam (Ativan) 1 mg 1X ONCE 06/15/18 10:45 06/15/18 10:46 DC 06/15/18 10:37 1 MG Magnesium Hydroxide (Milk Of Magnesia) 400 mg PRN QHS PRN 06/15/18 13:45 Methylprednisolone Sodium Succinate (SOLU-Medrol 125MG VIAL) 125 mg STK-MED ONCE 06/15/18 09:54 06/15/18 09:55 DC Miscellaneous (Lidoderm Patch Removal) 1 ea QHS 06/15/18 21:00 Nitroglycerin (Nitrostat) 0.4 mg PRN Q5MIN PRN 06/15/18 13:45 Ondansetron HCl (Zofran Odt) 4 mg PRN Q8HRS PRN 06/15/18 14:15 Polyethylene Glycol (miraLAX PACKET) 17 gm DAILY 06/15/18 15:00 Prednisone (Prednisone) 20 mg DAILY 06/16/18 09:00 Sodium Chloride 1,000 ml @ 150 mls/hr Q6H40M 06/15/18 11:58 06/16/18 11:57 06/16/18 02:01 150 MLS/HR Tramadol HCl (Ultram) 50 mg PRN Q6HRS PRN 06/15/18 13:45 Vancomycin HCl (Vanco Per Pharmacy) 1 each PRN DAILY PRN 06/15/18 15:30 06/15/18 15:53 1 EACH Vancomycin HCl (Vancomycin Trough Level) 1 each 1X ONCE 06/17/18 10:30 06/17/18 10:31 Vancomycin HCl 1.5 gm/Sodium Chloride 500 ml @ 250 mls/hr Q24H 06/16/18 11:00 Vancomycin HCl 2 gm/Sodium Chloride 500 ml @ 250 mls/hr ONCE ONCE 06/15/18 10:30 06/15/18 12:29 DC 06/15/18 10:27 250 MLS/HR Vitamin D (Vitamin D3) 2,000 unit DAILY 06/15/18 15:00 Labs: Lab Laboratory Tests Test 06/15/18 09:42 06/15/18 09:49 06/15/18 09:55 06/15/18 10:13 Glucose (Fingerstick) 140 mg/dL (70-99) White Blood Count 18.2 x10^3/uL (4.0-11.0) Red Blood Count 5.08 x10^6/uL (4.30-5.70) Hemoglobin 15.8 g/dL (13.0-17.5) Hematocrit 48.2 % (39.0-53.0) Mean Corpuscular Volume 95 fL (79-100) Mean Corpuscular Hemoglobin 31 pg (25-35) Mean Corpuscular Hemoglobin Concent 33 g/dL (31-37) Red Cell Distribution Width 14.6 % (11.5-14.5) Platelet Count 224 x10^3/uL (140-400) Neutrophils (%) (Auto) 65 % (31-73) Lymphocytes (%) (Auto) 28 % (24-48) Monocytes (%) (Auto) 5 % (0-9) Eosinophils (%) (Auto) 2 % (0-3) Basophils (%) (Auto) 1 % (0-3) Neutrophils # (Auto) 11.8 x10^3uL (1.8-7.7) Lymphocytes # (Auto) 5.0 x10^3/uL (1.0-4.8) Monocytes # (Auto) 0.9 x10^3/uL (0.0-1.1) Eosinophils # (Auto) 0.4 x10^3/uL (0.0-0.7) Basophils # (Auto) 0.1 x10^3/uL (0.0-0.2) Prothrombin Time 12.9 SEC (11.7-14.0) Prothromb Time International Ratio 1.0 (0.8-1.1) Sodium Level 142 mmol/L (136-145) Potassium Level 4.0 mmol/L (3.5-5.1) Chloride Level 102 mmol/L (98-107) Carbon Dioxide Level 25 mmol/L (21-32) Anion Gap 15 (6-14) Blood Urea Nitrogen 21 mg/dL (8-26) Creatinine 1.8 mg/dL (0.7-1.3) Estimated GFR (Cockcroft-Gault) 37.1 BUN/Creatinine Ratio 12 (6-20) Glucose Level 133 mg/dL (70-99) Lactic Acid Level 3.0 mmol/L (0.4-2.0) Calcium Level 9.7 mg/dL (8.5-10.1) Magnesium Level 1.8 mg/dL (1.8-2.4) Total Bilirubin 0.9 mg/dL (0.2-1.0) Aspartate Amino Transf (AST/SGOT) 23 U/L (15-37) Alanine Aminotransferase (ALT/SGPT) 15 U/L (16-63) Alkaline Phosphatase 98 U/L (46-116) Creatine Kinase 77 U/L (39-308) Troponin I Quantitative 0.562 ng/mL (0.000-0.055) Total Protein 7.4 g/dL (6.4-8.2) Albumin 3.7 g/dL (3.4-5.0) Albumin/Globulin Ratio 1.0 (1.0-1.7) O2 Saturation 90 % (92-99) Arterial Blood pH 7.47 (7.35-7.45) Arterial Blood pCO2 at Patient Temp 30 mmHg (35-46) Arterial Blood pO2 at Patient Temp 55 mmHg (65-108) Arterial Blood HCO3 22 mmol/L (21-28) Arterial Blood Base Excess -1 mmol/L (-3-3) FiO2 28 Influenza Type A Antigen Negative (NEGATIVE) Influenza Type B Antigen Negative (NEGATIVE) Urine Collection Type Unknown Urine Color Yellow Urine Clarity Clear Urine pH 8.0 Urine Specific [place] 1.015 Urine Protein 30 mg/dL (NEG-TRACE) Urine Glucose (UA) Negative mg/dL (NEG) Urine Ketones (Stick) Trace mg/dL (NEG) Urine Blood Moderate (NEG) Urine Nitrite Negative (NEG) Urine Bilirubin Negative (NEG) Urine Urobilinogen Dipstick 0.2 mg/dL (0.2 mg/dL) Urine Leukocyte Esterase Negative (NEG) Urine RBC 11-20 /HPF (0-2) Urine WBC 1-4 /HPF (0-4) Urine Squamous Epithelial Cells Occ /LPF Urine Bacteria Few /HPF (0-FEW) Urine Mucus Mod /LPF Test 06/15/18 14:22 06/15/18 23:00 06/16/18 05:00 06/16/18 06:00 Lactic Acid Level 2.9 mmol/L (0.4-2.0) 2.4 mmol/L (0.4-2.0) Troponin I Quantitative 1.515 ng/mL (0.000-0.055) Heparin Anti-Xa Act, Unfractionated 0.54 IU/mL (0.30-0.70) 0.38 IU/mL (0.30-0.70) White Blood Count 20.0 x10^3/uL (4.0-11.0) Red Blood Count 4.04 x10^6/uL (4.30-5.70) Hemoglobin 12.4 g/dL (13.0-17.5) Hematocrit 38.2 % (39.0-53.0) Mean Corpuscular Volume 95 fL (79-100) Mean Corpuscular Hemoglobin 31 pg (25-35) Mean Corpuscular Hemoglobin Concent 33 g/dL (31-37) Red Cell Distribution Width 14.7 % (11.5-14.5) Platelet Count 172 x10^3/uL (140-400) Neutrophils (%) (Auto) 90 % (31-73) Lymphocytes (%) (Auto) 6 % (24-48) Monocytes (%) (Auto) 4 % (0-9) Eosinophils (%) (Auto) 0 % (0-3) Basophils (%) (Auto) 0 % (0-3) Neutrophils # (Auto) 18.0 x10^3uL (1.8-7.7) Lymphocytes # (Auto) 1.2 x10^3/uL (1.0-4.8) Monocytes # (Auto) 0.9 x10^3/uL (0.0-1.1) Eosinophils # (Auto) 0.0 x10^3/uL (0.0-0.7) Basophils # (Auto) 0.0 x10^3/uL (0.0-0.2) Sodium Level 142 mmol/L (136-145) Potassium Level 3.5 mmol/L (3.5-5.1) Chloride Level 107 mmol/L (98-107) Carbon Dioxide Level 20 mmol/L (21-32) Anion Gap 15 (6-14) Blood Urea Nitrogen 24 mg/dL (8-26) Creatinine 1.4 mg/dL (0.7-1.3) Estimated GFR (Cockcroft-Gault) 49.5 BUN/Creatinine Ratio 17 (6-20) Glucose Level 230 mg/dL (70-99) Calcium Level 8.1 mg/dL (8.5-10.1) Total Bilirubin 1.0 mg/dL (0.2-1.0) Aspartate Amino Transf (AST/SGOT) 26 U/L (15-37) Alanine Aminotransferase (ALT/SGPT) 14 U/L (16-63) Alkaline Phosphatase 56 U/L (46-116) Total Protein 5.1 g/dL (6.4-8.2) Albumin 2.6 g/dL (3.4-5.0) Albumin/Globulin Ratio 1.0 (1.0-1.7) Procalcitonin 6.28 ng/mL (0.00-0.10) Objective: Assessment: Pt seen and examined IMP: Fever Leucocytosis ,on steroids Altered mental status , ? seizure Pnuemonia likely aspiration Elevated troponin, Atrial fibrillation with RVR h/o Addisons disease Hypertension. Asthma. Cognitive impairment. [facility] resident ISIDRO PCN and erythromycin allergy ? reaction Plan: Plan of Care Continue cefepime DC IV Vanc due to ISIDRO Zyvox and doxycycline F/U C/S and Labs in am [id number] JULIEN WELCH MD Jun 16, 2018 09:10
[2018-06-16 09:18] LABS: % BANDS 8 % (0-9); % LYMPHS 4 % (24-48); % MONOS 5 % (0-10); % SEGS 83 % (35-66); ANISOCYTOSIS SLIGHT; PLT ESTIMATE ADEQUATE (ADEQUATE)
--- NOTE | 2018-06-16 10:59 | CONS ---
DATE OF CONSULTATION: ATTENDING PHYSICIAN: Dr. Robledo. REASON FOR CONSULTATION: Encephalopathy. HISTORY OF PRESENT ILLNESS: The patient is 72 years old who is a resident of long-term. He was brought into the hospital with reportedly having a seizure and was less responsive. The patient is mentally challenged. He is also hard of hearing. His initial evaluation revealed an arterial blood gases which showed a pH of 7.47, pCO2 of 30 and a pO2 of 55 on 28% FIO2. He has been on a nasal cannula, was initially on BiPAP. He is now more awake, following commands. Neurology saw the patient, and a CT head was performed, which did not reveal any acute abnormality. The patient is currently following commands. He is still in atrial fibrillation with rapid ventricular response. Cardiology is following the patient. I have reviewed the chest x-ray, shows slightly prominent interstitial markings consistent with mild CHF. Denies any headaches. No cough, no fever, no chills. No nausea, vomiting or diarrhea was reported. PAST MEDICAL HISTORY: Significant for history of asthma, hypertension, history of mentally challenged. PAST SURGICAL HISTORY: No recent surgery. ALLERGIES: PENICILLIN, ERYTHROMYCIN. CURRENT MEDICATIONS: Reviewed as listed in the MRAD including antibiotics. He is also on heparin per protocol. His medications at the long-term were also reviewed, and they include Cymbalta, trazodone. He is also on hydrocortisone. REVIEW OF SYSTEMS: Unable to obtain from the patient due to his hard of hearing; however, pertinent positives are discussed in my history of present illness. SOCIAL HISTORY: Denies tobacco use. PHYSICAL EXAMINATION: VITAL SIGNS: His blood pressure is stable. However, his pulse is in the 150s, atrial fibrillation. Pulse ox 96% on 2 liters. NECK: Supple. LUNGS: Diminished breath sounds. CARDIOVASCULAR: Irregular rate. ABDOMEN: Soft, obese. EXTREMITIES: With trace pitting edema. LABORATORY DATA: Reviewed. Procalcitonin 6.28. BUN 24 and a creatinine of 1.4. Sodium 142. White cell count was 18.2 and now 20.0. Hemoglobin is 12.4. Influenza screen is negative. IMPRESSION: 1. Acute hypoxic respiratory failure secondary to acute toxic encephalopathy likely related to psych medications. Clinically much better. No focal weakness. No reported seizure. 2. Leukocytosis and increased procalcitonin level. A chest x-ray with mildly prominent interstitial markings. Cannot exclude the possibility of pneumonia. ID has been consulted and follow their recommendation regarding antibiotic. 3. Acute kidney injury. 4. Cognitive impairment. 5. Atrial fibrillation with rapid ventricular response. 6. History of Zhao disease, currently on steroids, hydrocortisone. RECOMMENDATIONS: 1. The patient's mental status has improved. 2. Minimize the use of sedatives and narcotics. 3. Continue antibiotic per Infectious Disease. 4. Monitor white cell count. 5. Continue prednisone. 6. Bronchodilators. 7. Monitor chest x-ray. 8. Discussed with RN and will follow along with you. Critical care time 30 minutes. KENRICK REYEZ MD DR: [email or web address]/[email or web address] a JOB#: [id number] / [id number]
[2018-06-16] MEDS ORDERED: VANCOMYCIN 1.5 GM in IV NORMAL SALINE 500ML BAG 500 ML IV SCH (11:00)
--- NOTE | 2018-06-16 11:17 | PDOC ---
CARDIOLOGY PROGRESS NOTE SUBJECTIVE: No acute events. Denies any chest pain. More alert today. OBJECTIVE: Vital SIgns: Vital Signs Date Time Temp Pulse Resp B/P (MAP) Pulse Ox O2 Delivery O2 Flow Rate FiO2 06/16/18 10:03 130 28 101/60 (74) 96 Nasal Cannula 2.0 06/16/18 07:00 98.2 98.2 I & O +4.2 L Objective: Irregular heart tones. Normal lung sounds. Soft abd. No edema. alert and oriented to self. CURRENT MEDICATIONS: Diltiazem gtt Hep gtt DIAGNOSTIC TESTING: Cr 1.4, improving Hgb decreased, likely dilutional ASSESSMENT: 1. Acute metabolic encephalopathy 2. Afib with RVR 3. Sepsis syndrome 4. Elevated troponin, likely type 2 NSTEMI PLAN: 1. Await echo 2. Add metoprolol 50mg bid for rate control, try to wean diltiazem gtt. Await discussion with goals of care, with regards to anticoagulation with DPOA. 3. Repeat troponin Supportive care. Discussed with nursing. TRAN COREY MD Jun 16, 2018 11:17
--- NOTE | 2018-06-16 11:25 | PDOC ---
PROGRESS NOTES Assessment Problems Medical Problems: (1) Acute respiratory distress Status: Acute (2) Adrenal insufficiency Status: Acute (3) Altered level of consciousness Status: Acute (4) Atrial fibrillation with RVR Status: Acute (5) HCAP (healthcare-associated pneumonia) Status: Acute (6) New onset seizure Status: Acute (7) Renal insufficiency Status: Acute (8) Sepsis Status: Acute Dr. 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 Oriented only to person. PERRL. EOMI. CN: no focal findings. Muscle tone: normal. Muscle strength: 4/5 DTR: 1+ Plantar reflex: flexor Gait: not examined in bed. Sensory exam: no abnormal findings. No cerebellar signs elicited. Review of Relevant I have reviewed the following items tricia (where applicable) has been applied. Labs Laboratory Tests Test 06/15/18 09:42 06/15/18 09:49 06/15/18 09:55 06/15/18 10:13 Glucose (Fingerstick) 140 mg/dL (70-99) White Blood Count 18.2 x10^3/uL (4.0-11.0) Red Blood Count 5.08 x10^6/uL (4.30-5.70) Hemoglobin 15.8 g/dL (13.0-17.5) Hematocrit 48.2 % (39.0-53.0) Mean Corpuscular Volume 95 fL (79-100) Mean Corpuscular Hemoglobin 31 pg (25-35) Mean Corpuscular Hemoglobin Concent 33 g/dL (31-37) Red Cell Distribution Width 14.6 % (11.5-14.5) Platelet Count 224 x10^3/uL (140-400) Neutrophils (%) (Auto) 65 % (31-73) Lymphocytes (%) (Auto) 28 % (24-48) Monocytes (%) (Auto) 5 % (0-9) Eosinophils (%) (Auto) 2 % (0-3) Basophils (%) (Auto) 1 % (0-3) Neutrophils # (Auto) 11.8 x10^3uL (1.8-7.7) Lymphocytes # (Auto) 5.0 x10^3/uL (1.0-4.8) Monocytes # (Auto) 0.9 x10^3/uL (0.0-1.1) Eosinophils # (Auto) 0.4 x10^3/uL (0.0-0.7) Basophils # (Auto) 0.1 x10^3/uL (0.0-0.2) Prothrombin Time 12.9 SEC (11.7-14.0) Prothromb Time International Ratio 1.0 (0.8-1.1) Sodium Level 142 mmol/L (136-145) Potassium Level 4.0 mmol/L (3.5-5.1) Chloride Level 102 mmol/L (98-107) Carbon Dioxide Level 25 mmol/L (21-32) Anion Gap 15 (6-14) Blood Urea Nitrogen 21 mg/dL (8-26) Creatinine 1.8 mg/dL (0.7-1.3) Estimated GFR (Cockcroft-Gault) 37.1 BUN/Creatinine Ratio 12 (6-20) Glucose Level 133 mg/dL (70-99) Lactic Acid Level 3.0 mmol/L (0.4-2.0) Calcium Level 9.7 mg/dL (8.5-10.1) Magnesium Level 1.8 mg/dL (1.8-2.4) Total Bilirubin 0.9 mg/dL (0.2-1.0) Aspartate Amino Transf (AST/SGOT) 23 U/L (15-37) Alanine Aminotransferase (ALT/SGPT) 15 U/L (16-63) Alkaline Phosphatase 98 U/L (46-116) Creatine Kinase 77 U/L (39-308) Troponin I Quantitative 0.562 ng/mL (0.000-0.055) Total Protein 7.4 g/dL (6.4-8.2) Albumin 3.7 g/dL (3.4-5.0) Albumin/Globulin Ratio 1.0 (1.0-1.7) O2 Saturation 90 % (92-99) Arterial Blood pH 7.47 (7.35-7.45) Arterial Blood pCO2 at Patient Temp 30 mmHg (35-46) Arterial Blood pO2 at Patient Temp 55 mmHg (65-108) Arterial Blood HCO3 22 mmol/L (21-28) Arterial Blood Base Excess -1 mmol/L (-3-3) FiO2 28 Influenza Type A Antigen Negative (NEGATIVE) Influenza Type B Antigen Negative (NEGATIVE) Urine Collection Type Unknown Urine Color Yellow Urine Clarity Clear Urine pH 8.0 Urine Specific Wright 1.015 Urine Protein 30 mg/dL (NEG-TRACE) Urine Glucose (UA) Negative mg/dL (NEG) Urine Ketones (Stick) Trace mg/dL (NEG) Urine Blood Moderate (NEG) Urine Nitrite Negative (NEG) Urine Bilirubin Negative (NEG) Urine Urobilinogen Dipstick 0.2 mg/dL (0.2 mg/dL) Urine Leukocyte Esterase Negative (NEG) Urine RBC 11-20 /HPF (0-2) Urine WBC 1-4 /HPF (0-4) Urine Squamous Epithelial Cells Occ /LPF Urine Bacteria Few /HPF (0-FEW) Urine Mucus Mod /LPF Test 06/15/18 14:22 06/15/18 23:00 06/16/18 05:00 06/16/18 06:00 Lactic Acid Level 2.9 mmol/L (0.4-2.0) 2.4 mmol/L (0.4-2.0) Troponin I Quantitative 1.515 ng/mL (0.000-0.055) Heparin Anti-Xa Act, Unfractionated 0.54 IU/mL (0.30-0.70) 0.38 IU/mL (0.30-0.70) White Blood Count 20.0 x10^3/uL (4.0-11.0) Red Blood Count 4.04 x10^6/uL (4.30-5.70) Hemoglobin 12.4 g/dL (13.0-17.5) Hematocrit 38.2 % (39.0-53.0) Mean Corpuscular Volume 95 fL (79-100) Mean Corpuscular Hemoglobin 31 pg (25-35) Mean Corpuscular Hemoglobin Concent 33 g/dL (31-37) Red Cell Distribution Width 14.7 % (11.5-14.5) Platelet Count 172 x10^3/uL (140-400) Neutrophils (%) (Auto) 90 % (31-73) Lymphocytes (%) (Auto) 6 % (24-48) Monocytes (%) (Auto) 4 % (0-9) Eosinophils (%) (Auto) 0 % (0-3) Basophils (%) (Auto) 0 % (0-3) Neutrophils # (Auto) 18.0 x10^3uL (1.8-7.7) Lymphocytes # (Auto) 1.2 x10^3/uL (1.0-4.8) Monocytes # (Auto) 0.9 x10^3/uL (0.0-1.1) Eosinophils # (Auto) 0.0 x10^3/uL (0.0-0.7) Basophils # (Auto) 0.0 x10^3/uL (0.0-0.2) Segmented Neutrophils % 83 % (35-66) Band Neutrophils % 8 % (0-9) Lymphocytes % 4 % (24-48) Monocytes % 5 % (0-10) Platelet Estimate Adequate (ADEQUATE) Anisocytosis Slight Sodium Level 142 mmol/L (136-145) Potassium Level 3.5 mmol/L (3.5-5.1) Chloride Level 107 mmol/L (98-107) Carbon Dioxide Level 20 mmol/L (21-32) Anion Gap 15 (6-14) Blood Urea Nitrogen 24 mg/dL (8-26) Creatinine 1.4 mg/dL (0.7-1.3) Estimated GFR (Cockcroft-Gault) 49.5 BUN/Creatinine Ratio 17 (6-20) Glucose Level 230 mg/dL (70-99) Calcium Level 8.1 mg/dL (8.5-10.1) Total Bilirubin 1.0 mg/dL (0.2-1.0) Aspartate Amino Transf (AST/SGOT) 26 U/L (15-37) Alanine Aminotransferase (ALT/SGPT) 14 U/L (16-63) Alkaline Phosphatase 56 U/L (46-116) Total Protein 5.1 g/dL (6.4-8.2) Albumin 2.6 g/dL (3.4-5.0) Albumin/Globulin Ratio 1.0 (1.0-1.7) Procalcitonin 6.28 ng/mL (0.00-0.10) Laboratory Tests Test 06/15/18 14:22 06/15/18 23:00 06/16/18 05:00 06/16/18 06:00 Lactic Acid Level 2.9 mmol/L (0.4-2.0) 2.4 mmol/L (0.4-2.0) Troponin I Quantitative 1.515 ng/mL (0.000-0.055) Heparin Anti-Xa Act, Unfractionated 0.54 IU/mL (0.30-0.70) 0.38 IU/mL (0.30-0.70) White Blood Count 20.0 x10^3/uL (4.0-11.0) Red Blood Count 4.04 x10^6/uL (4.30-5.70) Hemoglobin 12.4 g/dL (13.0-17.5) Hematocrit 38.2 % (39.0-53.0) Mean Corpuscular Volume 95 fL (79-100) Mean Corpuscular Hemoglobin 31 pg (25-35) Mean Corpuscular Hemoglobin Concent 33 g/dL (31-37) Red Cell Distribution Width 14.7 % (11.5-14.5) Platelet Count 172 x10^3/uL (140-400) Neutrophils (%) (Auto) 90 % (31-73) Lymphocytes (%) (Auto) 6 % (24-48) Monocytes (%) (Auto) 4 % (0-9) Eosinophils (%) (Auto) 0 % (0-3) Basophils (%) (Auto) 0 % (0-3) Neutrophils # (Auto) 18.0 x10^3uL (1.8-7.7) Lymphocytes # (Auto) 1.2 x10^3/uL (1.0-4.8) Monocytes # (Auto) 0.9 x10^3/uL (0.0-1.1) Eosinophils # (Auto) 0.0 x10^3/uL (0.0-0.7) Basophils # (Auto) 0.0 x10^3/uL (0.0-0.2) Segmented Neutrophils % 83 % (35-66) Band Neutrophils % 8 % (0-9) Lymphocytes % 4 % (24-48) Monocytes % 5 % (0-10) Platelet Estimate Adequate (ADEQUATE) Anisocytosis Slight Sodium Level 142 mmol/L (136-145) Potassium Level 3.5 mmol/L (3.5-5.1) Chloride Level 107 mmol/L (98-107) Carbon Dioxide Level 20 mmol/L (21-32) Anion Gap 15 (6-14) Blood Urea Nitrogen 24 mg/dL (8-26) Creatinine 1.4 mg/dL (0.7-1.3) Estimated GFR (Cockcroft-Gault) 49.5 BUN/Creatinine Ratio 17 (6-20) Glucose Level 230 mg/dL (70-99) Calcium Level 8.1 mg/dL (8.5-10.1) Total Bilirubin 1.0 mg/dL (0.2-1.0) Aspartate Amino Transf (AST/SGOT) 26 U/L (15-37) Alanine Aminotransferase (ALT/SGPT) 14 U/L (16-63) Alkaline Phosphatase 56 U/L (46-116) Total Protein 5.1 g/dL (6.4-8.2) Albumin 2.6 g/dL (3.4-5.0) Albumin/Globulin Ratio 1.0 (1.0-1.7) Procalcitonin 6.28 ng/mL (0.00-0.10) Microbiology 06/15/18 Blood Culture - Preliminary, Resulted NO GROWTH AFTER 1 DAY Medications Current Medications Sodium Chloride 1,000 ml @ 1,000 mls/hr Q1H IV Last administered on 06/15/18at 09:42; Start 06/15/18 at 09:42; Stop 06/15/18 at 10:41; Status DC Sodium Chloride 2,270 ml @ 378.333 mls/hr 1X ONCE IV Last administered on at 10:26; Start 06/15/18 at 09:45; Stop 06/15/18 at 15:44; Status DC Acetaminophen (Tylenol Supp) 650 mg 1X ONCE OR Last administered on 06/15/18at 10:17; Start 06/15/18 at 09:45; Stop 06/15/18 at 09:54; Status DC Cefepime HCl (Maxipime) 1 gm 1X ONCE IVP Last administered on 06/15/18at 10:16 ; Start 06/15/18 at 10:00; Stop 06/15/18 at 10:04; Status DC Vancomycin HCl 250 ml @ 250 mls/hr 1X ONCE IV ; Start 06/15/18 at 10:00; Stop 06/15/18 at 10:59; Status UNV Vancomycin HCl 2 gm/Sodium Chloride 500 ml @ 250 mls/hr ONCE ONCE IV Last administered on 06/15/18at 10:27; Start 06/15/18 at 10:30; Stop 06/15/18 at 12:29 ; Status DC Methylprednisolone Sodium Succinate (SOLU-Medrol 125MG VIAL) 250 mg 1X ONCE IV Last administered on 06/15/18at 09:57; Start 06/15/18 at 10:00; Stop 06/15/18 at 10:01; Status DC Albuterol/ Ipratropium (Duoneb) 3 ml 1X ONCE NEB Last administered on at 10:50; Start 06/15/18 at 10:00; Stop 06/15/18 at 10:01; Status DC Methylprednisolone Sodium Succinate (SOLU-Medrol 125MG VIAL) 125 mg STK-MED ONCE .ROUTE ; Start 06/15/18 at 09:54; Stop 06/15/18 at 09:55; Status DC Diltiazem HCl (Cardizem Iv Push) 10 mg 1X ONCE IVP Last administered on at 11:09; Start 06/15/18 at 10:15; Stop 06/15/18 at 10:16; Status DC Lorazepam (Ativan) 1 mg 1X ONCE IV Last administered on 06/15/18at 10:37; Start 06/15/18 at 10:45; Stop 06/15/18 at 10:46; Status DC Sodium Chloride 1,000 ml @ 150 mls/hr Q6H40M IV Last administered on at 09:04; Start 06/15/18 at 11:58; Stop 06/16/18 at 11:57 Diltiazem HCl 125 mg/Dextrose 125 ml @ 5 mls/hr CONT PRN IV SEE I/O RECORD Last administered on 06/16/18at 09:04; Start 06/15/18 at 12:15 Baclofen (Lioresal) 5 mg TID PO Last administered on 06/16/18 09:05; Start at 14:00 Vitamin D (Vitamin D3) 2,000 unit DAILY PO Last administered on 06/16/18at 09:05 ; Start 06/15/18 at 15:00 Famotidine (Pepcid) 20 mg QHS PO ; Start 06/15/18 at 15:00 Al Hydroxide/Mg Hydroxide (Mylanta Plus Xs) 30 ml PRN Q12HRS PRN PO HEARTBURN / GAS; Start 06/15/18 at 21:00 Magnesium Hydroxide (Milk Of Magnesia) 400 mg PRN QHS PRN PO CONSTIPATION; Start 06/15/18 at 13:45 Nitroglycerin (Nitrostat) 0.4 mg PRN Q5MIN PRN SL CHEST PAIN; Start 06/15/18 at 13:45 Tramadol HCl (Ultram) 50 mg PRN Q6HRS PRN PO PAIN; Start 06/15/18 at 13:45 Duloxetine HCl (Cymbalta) 60 mg DAILY PO Last administered on 06/16/18at 09:05; Start 06/15/18 at 15:00 Lidocaine (Lidoderm) 1 patch DAILY TD Last administered on 06/16/18at 09:04; Start 06/15/18 at 15:00 Ondansetron HCl (Zofran Odt) 4 mg PRN Q8HRS PRN PO NAUSEA/VOMITING; Start 06/15 at 14:15 Polyethylene Glycol (miraLAX PACKET) 17 gm DAILY PO Last administered on at 09:05; Start 06/15/18 at 15:00 Miscellaneous (Lidoderm Patch Removal) 1 ea QHS MC ; Start 06/15/18 at 21:00 Vancomycin HCl (Vanco Per Pharmacy) 1 each PRN DAILY PRN MC SEE COMMENTS Last administered on 06/15/18at 15:53; Start 06/15/18 at 15:30 Cefepime HCl (Maxipime) 2 gm Q8HRS IVP Last administered on 06/15/18at 15:50; Start 06/15/18 at 15:30; Stop 06/15/18 at 18:43; Status DC Vancomycin HCl 1.5 gm/Sodium Chloride 500 ml @ 250 mls/hr Q24H IV ; Start 06/16 at 11:00 Vancomycin HCl (Vancomycin Trough Level) 1 each 1X ONCE MC ; Start 06/17/18 at 10:30; Stop 06/17/18 at 10:31 Albuterol/ Ipratropium (Duoneb) 3 ml RTQID NEB Last administered on 06/16/18at 08:49; Start 06/15/18 at 20:00 Prednisone (Prednisone) 20 mg DAILY PO Last administered on 06/16/18at 09:05; Start 06/16/18 at 09:00 Heparin Sodium (Porcine) (Heparin Sodium) 4,000 unit 1X ONCE IV Last administered on 06/15/18at 16:55; Start 06/15/18 at 16:45; Stop 06/15/18 at 16:51 ; Status DC Heparin Sodium/ Dextrose 500 ml @ 0 mls/hr CONT PRN IV SEE I/O RECORD Last administered on 06/15/18at 16:57; Start 06/15/18 at 16:45 Heparin Sodium (Porcine) (Heparin Sodium) 2,100 unit PRN Q6HRS PRN IV FOR UFH LEVEL LESS THAN 0.2; Start 06/15/18 at 16:45 Info (Anti-Coagulation Monitoring By Pharmacy) 1 each PRN DAILY PRN MC SEE COMMENTS; Start 06/15/18 at 17:00 Cefepime HCl (Maxipime) 1 gm Q8HRS IVP Last administered on 06/16/18at 06:11; Start 06/15/18 at 22:00 Doxycycline Hyclate (Vibra-Tab) 100 mg BID PO Last administered on 06/16/18at 09 :10; Start 06/16/18 at 09:00 Linezolid/Dextrose 300 ml @ 300 mls/hr Q12HR IV ; Start 06/16/18 at 10:00; Stop 06/16/18 at 10:00; Status DC Metoprolol Tartrate (Lopressor) 50 mg BID PO ; Start 06/16/18 at 12:00 Active Scripts Active Meloxicam 7.5 Mg Tablet 7.5 Mg PO DAILY Zofran (Ondansetron Hcl) 4 Mg Tablet 4 Mg PO PRN TID PRN nausea/vomiting Reported Tramadol Hcl 50 Mg Tablet 50 Mg PO Q6HRS PRN NITROGLYCERIN SubLingual (Nitroglycerin) 0.4 Mg Tab.subl 0.4 Mg SL PRN Q5MIN PRN Milk Of Magnesia (Magnesium Hydroxide) 400 Mg/5 Ml Oral.susp 400 Mg PO PRN QHS PRN [place] Greaseless Cream (Methyl Salicylate/Menthol) 57 Gm Cream..g. 57 Gm TP PRN Q1HR PRN Vitamin D3 (Cholecalciferol (Vitamin D3)) 1,000 Unit Tablet 2,000 Unit PO DAILY Vitamin B-12 (Cyanocobalamin (Vitamin B-12)) 1,000 Mcg Tablet 1 Tab PO DAILY Trazodone Hcl 50 Mg Tablet 50 Mg PO HS Miralax (Polyethylene Glycol 3350) 17 Gm Powd.pack 1 Pkt PO DAILY Maalox Maximum Strength Susp (Mag Hydrox/Al Hydrox/Simeth) 355 Ml Oral.susp 355 Ml PO Q12HR Cortef (Hydrocortisone) 20 Mg Tablet 20 Mg PO AFTRNOON PRN Cortef (Hydrocortisone) 10 Mg Tablet 15 Mg PO DAILY Pepcid (Famotidine) 20 Mg Tablet 20 Mg PO BID Cymbalta (Duloxetine Hcl) 60 Mg Capsule.dr 1 Cap PO DAILY Baclofen 10 Mg Tablet 5 Mg PO TID Lidocaine 1 Each Adh..patch 1 Each TP DAILY Vitals/I & O Vital Sign - Last 24 Hours 06/15/18 06/15/18 06/15/18 06/15/18 11:26 11:31 11:36 11:41 Pulse 134 132 126 132 Resp 50 51 54 56 Pulse Ox 97 96 96 95 06/15/18 06/15/18 06/15/18 06/15/18 11:46 11:51 11:56 12:01 Pulse 130 130 132 132 Resp 50 57 56 59 Pulse Ox 96 95 91 91 06/15/18 06/15/18 06/15/18 06/15/18 12:06 12:11 12:16 12:30 Pulse 132 132 132 Resp 56 60 Pulse Ox 91 85 86 94 O2 Delivery BiPAP/CPAP 06/15/18 06/15/18 06/15/18 06/15/18 12:30 12:45 12:58 13:00 Temp 103.2 103.2 Pulse 130 122 122 Resp 30 30 30 B/P (MAP) 126/90 (102) 105/66 (79) 106/67 (80) Pulse Ox 93 95 95 O2 Delivery BiPAP/CPAP BiPAP/CPAP Bi-pap BiPAP/CPAP 06/15/18 06/15/18 06/15/18 06/15/18 13:15 13:30 13:32 14:00 Pulse 120 118 114 Resp 32 30 33 B/P (MAP) 104/70 (81) 113/70 (84) 108/81 (90) Pulse Ox 95 94 95 98 O2 Delivery BiPAP/CPAP BiPAP/CPAP BiPAP/CPAP BiPAP/CPAP 06/15/18 06/15/18 06/15/18 06/15/18 14:30 15:30 15:56 16:00 Temp 98.1 98.1 Pulse 112 113 103 Resp 31 25 30 B/P (MAP) 137/65 (89) 101/66 (78) 136/73 (94) Pulse Ox 97 99 95 93 O2 Delivery BiPAP/CPAP BiPAP/CPAP Nasal Cannula Nasal Cannula O2 Flow Rate 4.0 4.0 06/15/18 06/15/18 06/15/18 06/15/18 16:00 16:00 17:00 18:00 Pulse 113 114 Resp 31 B/P (MAP) 99/74 (82) 114/73 (87) Pulse Ox 92 91 O2 Delivery Nasal Cannula Nasal Cannula Nasal Cannula O2 Flow Rate 4.0 4.0 4.0 4.0 06/15/18 06/15/18 06/15/18 06/15/18 19:00 20:00 20:00 20:28 Temp 100.2 100.2 Pulse 110 108 Resp 34 B/P (MAP) 107/61 (76) 101/88 (92) Pulse Ox 95 4 95 O2 Delivery Room Air Nasal Cannula Nasal Cannula Nasal Cannula O2 Flow Rate 4.0 3.0 06/15/18 06/15/18 06/15/18 06/15/18 21:00 22:12 23:02 23:45 Pulse 109 108 106 Resp 24 29 28 B/P (MAP) 122/60 (80) 137/86 (103) 140/87 (104) Pulse Ox 94 96 92 O2 Delivery Nasal Cannula Nasal Cannula Nasal Cannula Nasal Cannula O2 Flow Rate 4.0 4.0 4.0 4.0 06/16/18 06/16/18 06/16/18 06/16/18 00:02 01:00 02:05 03:00 Temp 99.2 99.2 Pulse 111 103 117 114 Resp 34 33 27 34 B/P (MAP) 125/75 (92) 121/71 (88) 105/67 (80) 104/78 (87) Pulse Ox 96 96 96 91 O2 Delivery Nasal Cannula Nasal Cannula Nasal Cannula Nasal Cannula O2 Flow Rate 4.0 4.0 4.0 4.0 06/16/18 06/16/18 06/16/18 06/16/18 04:00 04:05 05:00 06:00 Temp 98.9 98.9 Pulse 108 102 119 Resp 37 28 31 B/P (MAP) 102/63 (76) 96/64 (75) 100/71 (81) Pulse Ox 92 93 96 O2 Delivery Nasal Cannula Nasal Cannula Nasal Cannula Nasal Cannula O2 Flow Rate 4.0 4.0 4.0 4.0 06/16/18 06/16/18 06/16/18 06/16/18 07:00 07:37 07:41 08:00 Temp 98.2 98.2 Pulse 133 122 Resp 18 18 B/P (MAP) 108/71 (83) 111/71 (84) Pulse Ox 96 94 O2 Delivery Nasal Cannula Nasal Cannula Nasal Cannula O2 Flow Rate 4.0 4.0 4.0 4.0 06/16/18 06/16/18 06/16/18 08:49 09:00 10:03 Pulse 150 130 Resp 30 28 B/P (MAP) 109/83 (92) 101/60 (74) Pulse Ox 95 96 96 O2 Delivery Nasal Cannula Nasal Cannula Nasal Cannula O2 Flow Rate 3.0 2.0 2.0 Intake and Output 06/15/18 06/15/18 06/16/18 15:00 23:00 07:00 Intake Total 2500 ml 914 ml 2073 ml Output Total 250 ml 410 ml 545 ml Balance 2250 ml 504 ml [address] brain without contrast, CT C-spine without contrast. HISTORY: Seizure, altered level of consciousness CT brain CT scan of the brain was done without contrast. Comparison is made with a study from May 25. There is mild atrophy. There is no intracranial hemorrhage or subdural hematoma. Ventricles are normal in size. There is no mass or shift of the midline. There is decreased density in the white matter from chronic microvascular changes. Sinuses are clear. A skull fracture is not identified. IMPRESSION: 1. Chronic white matter changes. 2. No intracranial hemorrhage or mass or acute CVA noted. End impression CT cervical spine Axial CT images were obtained to the cervical spine. Sagittal and coronal reconstructed images were reviewed. A C-spine fracture is not identified. There is facet arthritis in the mid cervical spine. There is foraminal stenosis at C4-5 on the left and C5-6 on the right. There is disc space narrowing at C5-6 and C6-7. Upper aspect of the lungs show bilateral infiltrates more prominent in the left upper lobe. IMPRESSION: 1. Degenerative changes in the cervical spine. 2. No acute fracture. 3. Bilateral infiltrates in the lungs. KAT JIMENEZ MD Jun 16, 2018 11:25
[2018-06-16] MEDS: METOPROLOL TART IMMED RELEASE 50 MG TABLET. PO SCH ×2 (11:28→20:24)
[2018-06-16] MEDS: HEPARIN 25,000UTS/500ML PREMIX 500 ML IV PRN (11:30)
[2018-06-16] MEDS: traMADol 50 MG TABLET PO PRN ×2 (11:31→16:44)
--- NOTE | 2018-06-16 12:24 | CONS ---
DATE OF CONSULTATION: 06/15/2018 REFERRING PHYSICIAN: Bre Robledo M.D. REASON FOR CONSULTATION: Possible seizure. HISTORY OF PRESENT ILLNESS: The patient is a 72-year-old man who is a resident of a [facility]. EMS was called today when he was found to be shaking. In the Emergency Room, he was found to have high fever and appeared to be septic. The sepsis protocol has been initiated. He apparently resides in the [facility]dc because he has had a lifelong capacity of a 10-year-old child. It is not clear if he has mental retardation or a static encephalopathy, but his cognition has not been normal and he is not able to provide his own care. His parents cared for him up into the point that they . He has been getting help from his siblings and their children. According to records and family notes that he has been somewhat of hypo-contract. When I reviewed records, it states he had 1 minute of tonic-clonic type activity and was unresponsive following this. In the Emergency Room, he was very sleepy with some respiratory distress, although has not required intubation. History is primarily provided by nursing staff and medical records as the patient himself is not able to provide any history and there is no family in the room. PAST MEDICAL HISTORY: 1. Hypertension. 2. Asthma. 3. Cognitive deficits. ALLERGIES: PENICILLINS and ERYTHROMYCIN. MEDICATIONS: Prior to admission, baclofen 5 mg 3 times per day, vitamin D3 2000 international units, vitamin B12 tablets, duloxetine 60 mg, famotidine 20 mg twice per day, hydrocortisone 10 mg in the morning and 20 mg in the afternoon, Lidoderm patch, Maalox as needed, milk of magnesia as needed, Meloxicam 7.5 mg, analgesic balm as needed, nitroglycerin sublingual as needed, Zofran as needed, MiraLax 17 grams daily, tramadol 50 mg every 6 hours as needed and trazodone 50 mg nightly. FAMILY HISTORY: Noncontributory. SOCIAL HISTORY: He smokes a pack of cigarettes per day and has for 50 years. There is no report of alcohol or recreational drugs. He resides at a facility. REVIEW OF SYSTEMS: Not obtainable. PHYSICAL EXAMINATION: VITAL SIGNS: The blood pressure was 99/74, pulse 113, respirations 29 and temperature 98.1 degrees Fahrenheit. He was previously up to 103.2 orally. Oximetry was 92% on 4 liters nasal cannula. NEUROMUSCULOSKELETAL: He was lying in the bed with his eyes open. He looked about the room but had no focus. He did not follow command or look up to command. He did respond to visual threat. He blinked to clap. The eyes were conjugate. Pupils were 3 mm and reacted. He was not able to cooperate for funduscopic examination. He had constant tongue movements about his mouth. He appeared edentulous. The neck was not rigid. Muscle bulk was symmetric. Tone appeared increased on all 4 extremities. When the arms were held in the air, they did come down symmetrically. The same was true with the legs. Nail bed pressure caused a withdrawal and a grimace in the upper extremities. He did not react as much with the lower extremities. Reflexes were 2+/4 in the upper extremities and at the knees, absent at the ankles. The toes were not upgoing. Peripheral pulses were 2/4 and symmetric in the wrist and in the feet. He had different wounds on his wrists, hands and feet. There was no edema or cyanosis. LABORATORY DATA: Review of laboratory data: CBC revealed an elevated white count of 18.2. Hemoglobin, hematocrit and platelet counts were normal. Chemistry revealed normal electrolytes. Anion gap was elevated at 15. BUN was 21 and creatinine elevated to 1.8 with a calculated GFR of 37.1. Glucose was elevated at 133. Calcium and magnesium were normal. The liver enzymes were not elevated. Troponin was elevated to 1.515. Total protein and albumin were normal. Urinalysis revealed trace ketones, moderate blood, 11-20 red blood cells, 1-4 white blood cells, occasional squamous epithelial cells and a few bacteria. PT/INR was 1. Influenza screening was negative. An arterial blood gas revealed a pH of 7.47, pCO2 of 30, pO2 of 55, bicarbonate at 21 and saturation at 90% on an FiO2 of 28%. RADIOLOGICAL DATA: Chest x-ray was performed on 06/15/2018 revealing mild left perihilar infiltrates. CT scan of the head and cervical spine were performed on 06/15/2018. This revealed chronic white matter change but no acute intracranial process. Cervical spine revealed degenerative changes but no acute fracture. It did note bilateral infiltrates in the lungs. IMPRESSION: The patient is a 72-year-old man who resides in a facility due to cognitive limitations. He is a chronic smoker. He appears to have lung infiltrates and has evidence for sepsis syndrome. He is being treated accordingly. He also has evidence of a cardiac insult and came in with atrial fibrillation with a rapid ventricular response. Heart rate is being controlled with a Cardizem drip. Cardiology has also initiated a heparin drip. It is not clear if his episode of shaking was actually related to sepsis and rigors or if he actually had a seizure. He may have had a seizure related to the lowering of the seizure threshold from underlying infection. He does not show evidence of further seizure. Some of this mouth activity may be tardive dyskinesia. He may have been exposed to psychotropic medications over the years. RECOMMENDATIONS: I would continue with underlying supportive care treating the major underlying medical illnesses as this is happening at the present time. I do not recommend initiating an anticonvulsant unless it becomes apparent that he is going to have recurrent seizure. If he has further generalized tonic-clonic or focal seizure, we can always initiate intravenous levetiracetam. The nurse will let me know if there is any seizure activity. I appreciate being involved in his care. KEITH VIRK MD DR: SUZANNE/jorge a JOB#: [id number] / [id number] Dr DORON Caba FERILYN MD
--- NOTE | 2018-06-16 13:36 | NUR ---
Wound care: Patient seen per wound care consult. There are no open wounds at this time. Spoke with RN whom states she spoke with family and patient is frequently falling and injuring self. The right foot and left foot toes are all scabbed over. They are swollen and the left foot toes are bruised and cool to touch. patient does have a palpable pulse in bilaterally lower extremities. patient assisted to stand, coccyx reddened but remains blanchable. Patient assisted back to chair. RN at bedside. Wound care will sign off at this time. please re consult regarding any changes.
--- NOTE | 2018-06-16 15:31 | NUR ---
SS following for discharge planning. SS received notification that pt was originally from [facility] but was supposed to be moving to [facility] this week. SS spoke with Melania at [facility], ; fax [phone], confirming that pt is accepted as a LTC pt from there facility and was able to come as a skilled resident if needed pending insurance approval. Physician notified. SS requested PT/OT be ordered for pt. SS will continue to follow for discharge planning.
--- NOTE | 2018-06-16 16:19 | CARD ---
MR#: [id number] Date of Study: 06/16/2018 Ordering Physician: TRAN COREY, Referring Physician: CAROLEE RUDD Tech: Helen James RDCS APPROVED REPORT EXAM: Two-dimensional and M-mode echocardiogram with Doppler and color Doppler. Other Information Quality : Technically Limited Technically limited study due to patient uncooperative INDICATION Elevated Troponin 2D DIMENSIONS RVDd2.3 (2.9-3.5cm)Left Atrium(2D)3.7 (1.6-4.0cm) IVSd1.0 (0.7-1.1cm)Aortic Root(2D)3.5 (2.0-3.7cm) LVDd4.5 (3.9-5.9cm)LVOT Diameter2.1 (1.8-2.4cm) PWd1.0 (0.7-1.1cm)LVDs3.8 (2.5-4.0cm) FS (%) 20.0 %SV33.3 ml LVEF(%)40.0 (>50%) Aortic Valve AoV Peak Kenny.238.6cm/sAoV VTI51.6cm AO Peak GR.22.8mmHgLVOT VTI 16.69cm AO Mean GR.15mmHgAVA (VTI)1.10cm2 AI P 1/2 Vxdc652yg Mitral Valve MV E Uqcgrsal210.9cm/sMV DECEL TGQZ170yl MV A Scvylwba55.0cm/sE/A Ratio1.6 Tricuspid Valve TR P. Upnfvpfn604mh/sRAP LNOBCPCP9nhZq TR Peak Gr.32ivFmXLXA29oeAv Pulmonary Vein S1 Vyreyqyq49.2cm/sS2 Zlypbfhm88.97cm/s D2 Vjgvanlj39.0cm/s LEFT VENTRICLE The left ventricle is normal size. There is normal left ventricular wall thickness. Left ventricle sy stolic function is mildly impaired. EF 40-45%. There is mild to moderate global hypokinesis with pred ominant septal/anterior wall motion abnormalities Tissue Doppler imaging reveals moderate left ventri cular diastolic dysfunction. RIGHT VENTRICLE The right ventricle is normal size. The right ventricular systolic function is normal. ATRIA The left atrium size is normal. The right atrium size is normal. The interatrial septum is intact wit h no evidence for an atrial septal defect or patent foramen ovale as noted on 2-D or Doppler imaging. AORTIC VALVE The aortic valve is calcified and displays decreased opening. Doppler and Color Flow revealed moderat e aortic regurgitation. Calculated aortic valve area is 1.1 cm2 with maximum pressure gradient of 23 mmHg and mean pressure gradient of 15 mmHg. Doppler and color-flow analysis revealed moderate aortic stenosis. MITRAL VALVE The mitral valve is calcified but opens well. Mitral annular calcification is mild. There is no evide nce of mitral valve prolapse. There is no mitral valve stenosis. Doppler and Color-flow revealed mild mitral regurgitation. TRICUSPID VALVE The tricuspid valve is normal in structure and function. Doppler and Color Flow revealed physiologica l tricuspid regurgitation. The PA pressure was estimated at 30 mmHg. There is no tricuspid valve sten osis. PULMONIC VALVE The pulmonic valve is not well visualized. Doppler and Color Flow revealed no pulmonic valvular regur gitation. There is no pulmonic valvular stenosis. GREAT VESSELS The aortic root is normal in size. The ascending aorta is mildly dilated at 3.5 cm. The IVC is normal in size and collapses <50% with inspiration. PERICARDIAL EFFUSION There is no evidence of significant pericardial effusion. Critical Notification Critical Value: No <Conclusion> Left ventricle systolic function is mildly impaired. EF 40-45%. There is mild to moderate global hypokinesis with predominant septal/anterior wall motion abnormaliti es Calculated aortic valve area is 1.1 cm2 with maximum pressure gradient of 23 mmHg and mean pressure g radient of 15 mmHg. Doppler and color-flow analysis revealed moderate aortic stenosis. The ascending aorta is mildly dilated at 3.5 cm. Signed by : Tran Corey, Electronically Approved : 06/16/2018 16:19:00
[2018-06-16] MEDS: PATCH REMOVAL. MC SCH (20:05)
[2018-06-16] MEDS: FAMOTIDINE 20 MG TABLET. PO SCH (20:24)
[2018-06-17] VITALS (24 sets, daily range): BP systolic 80–148; BP diastolic 42–92
[2018-06-17] MEDS ORDERED: ATROPINE 0.5 MG/5 ML DISP.SYRINGE. IV PRN (01:45)
--- NOTE | 2018-06-17 01:56 | CONS ---
DATE OF CONSULTATION: 06/16/2018 REFERRING PHYSICIAN: Dr. Robledo. REASON FOR CONSULTATION: Antibiotic management. HISTORY OF PRESENT ILLNESS: A 72-year-old skilled nursing resident, was brought by EMS to [facility] ED on 06/15/2018 due to unresponsiveness. The patient was found in the morning by skilled nursing staff with a questionable seizure-like activity as per chart review. The patient is unable to give any details. He was hypoxic, tachycardic. CT of the head and cervical neck did not show any acute abnormality. He was found to have leukocytosis, fever of 103, creatinine of 1.8. He got a dose of IV vancomycin in the ED. The patient was admitted to ICU. Also, received cefepime, which he is currently on. This morning, the patient is alert, but remains confused. He was also found to have AFib with RVR. The patient has mental capacity of 8-year-old, so has been at the skilled nursing facility as he is unable to take care of himself. The patient also has a prior hypochondriac history per chart review. Today, the patient keeps on mumbling. He is alert, awake, appears comfortable, still remains tachycardic. Fever pattern is improving. PAST MEDICAL HISTORY: Hypertension, asthma, hypochondriac, cognitive disorder. FAMILY HISTORY: As per HPI. SOCIAL HISTORY: detention resident. No history of smoking, alcohol, or illicit drug use. CURRENT MEDICATIONS: IV cefepime. Other medications reviewed in medication list. Methylprednisolone, one dose of IV vancomycin. ALLERGIES: PENICILLIN, intermediate, unable to verify reaction. ERYTHROMYCIN BASE, intermediate. REVIEW OF SYSTEMS: Unable to obtain. The patient mumbles, is awake, does not respond to questions. Discussed with nursing. PHYSICAL EXAMINATION: VITAL SIGNS: Temperature 97.2, pulse 102, respiratory rate 18, blood pressure 131/90, oxygen saturation 94% on 4 liters by nasal cannula. GENERAL: Alert, awake, mumbles, does not follow commands. HEENT: Normocephalic, atraumatic, anicteric. No thrush. Oral mucosa moist. NECK: Supple. No JVD. LUNGS: Decreased breath sounds at bases, otherwise clear. No wheezing. CARDIOVASCULAR: S1, S2, tachycardia. No murmurs. ABDOMEN: Soft, nontender, nondistended, no rebound, no guarding. GENITOURINARY: Shanks in place. EXTREMITIES: No edema, no cyanosis. DERM: Multiple skin breakdown over the toes, dry. No evidence of secondary bacterial infection, onychomycosis. NEUROLOGIC: Alert, awake, moves all 4 extremities. PSYCHIATRIC: Unable to obtain. Awake, alert. LABORATORY DATA: WBC 18.0, hemoglobin 15.8, hematocrit 48.2, platelets 224, neutrophils 11.8. Repeat this morning, WBC is 20, hemoglobin 12.4, hematocrit 38.2, and platelets 172. Sodium 148, potassium 3.5, chloride 107, bicarbonate 20, BUN 24, creatinine 1.4. Lactate 2.9, now 2.4. Procalcitonin 6.28. UA shows moderate blood, leukocyte esterase negative, wbc's 1-4. Serology: Influenza negative. IMAGING: Chest x-ray, mild left perihilar infiltrate. CT head and cervical neck shows degenerative changes of the cervical spine, no acute fracture. Bilateral infiltrate in the lung. Chronic white matter changes. No intracranial hemorrhage or mass or acute CVA. IMPRESSION: 1. Febrile illness, influenza screen negative, likely source respiratory. 2. Leukocytosis, also on steroids. 3. Altered mental status, questionable seizure activity. None are noticed at [facility]. 4. Pneumonia, likely aspiration. 5. Elevated troponin with atrial fibrillation with rapid ventricular response. 6. History of Barnwell's disease. 7. Hypertension. 8. Asthma. 9. Cognitive impairment. 10. detention resident. 11. Acute kidney injury. 12. PENICILLIN AND ERYTHROMYCIN ALLERGY, questionable reaction. RECOMMENDATIONS: 1. Continue cefepime. 2. Continue IV Vanc, renal dosing, Pharmacy assisting 3. Start doxycycline. 4. Follow up urine Legionella antigen. 5. Maintain aspiration precaution. 6. Follow up labs and cultures. 7. Continue supportive care. 8. Discussed with RN. Thank you, Dr. Robledo, for consulting Infectious Disease to participate in this patient's care. We will follow along with you. JULIEN WELCH MD DR: ASHLEY/jorge a JOB#: [id number] / [id number] MATTIE
[2018-06-17] MEDS: DEXMEDETOMIDINE 200 MCG in IV NORMAL SALINE 50ML 48 ML IV PRN ×4 (02:23→23:52)
--- NOTE | 2018-06-17 02:29 | NUR ---
At 1900, patient began trying to climb out of bed, unable to orient, not verbalizing anything, very tachypneic. Patient was placed on BiPAP. Dr. Villa notified and received the order to give ativan 2 mg IV q 4 prn. A couple hours later, patient continued being tachypneic and needed increased FIO2 to maintain SPO2 in the 90s, received the order for another 2 mg ativan IV from Dr. Villa. Notified Dr. Lutz of tachypnea despite 4 mg of ativan, received the order for CXR in the morning and start Precedex gtt.
[2018-06-17] MEDS: CEFEPIME HCL IV Push 1 GM VIAL. IVP SCH ×3 (05:24→21:59)
[2018-06-17 07:13] LABS: HEMATOCRIT 35.3 % (39.0-53.0); HEMOGLOBIN 11.6 g/dL (13.0-17.5); RED BLOOD COUNT 3.71 x10^6/uL (4.30-5.70); RED CELL DISTRIBUTION WIDTH 15.2 % (11.5-14.5); WHITE BLOOD COUNT 13.6 x10^3/uL (4.0-11.0)
[2018-06-17 07:31] LABS: CALCIUM 8.2 mg/dL (8.5-10.1); CREATININE 1.8 mg/dL (0.7-1.3); GFR 37.1; MAGNESIUM 1.9 mg/dL (1.8-2.4); POTASSIUM 4.3 mmol/L (3.5-5.1)
--- NOTE | 2018-06-17 07:49 | RAD ---
Portable chest, 06/17/2018: HISTORY: Respiratory distress Comparison is made to a study from 06/15/2018. Extensive left lung infiltrate has developed obscuring the left heart border and the left hemidiaphragm. There is moderate patchy right lung infiltrate obscuring the underlying pulmonary vascularity. No right-sided pleural fluid is seen. Left-sided pleural fluid cannot be excluded in the presence of the extensive left chest opacities. IMPRESSION: Severe pulmonary infiltrates have developed, left worse than right, most likely representing pulmonary edema. Note: The findings were called to the patient's nurse in the ICU at 7:46 AM on 06/17/2018. Electronically signed by: Julio C Duran MD (06/17/2018 7:46 AM) [facility]
[2018-06-17] MEDS ORDERED: FUROSEMIDE 20 MG/2 ML VIAL. IVP ONE (08:00)
--- NOTE | 2018-06-17 08:01 | PDOC ---
Infectious Disease Note Subjective: Subjective Pt on bipap underwent diuresis for pulm edema opens eyes no fevers D/W Nursing Vital Signs: Vital Signs Vital Signs Date Time Temp Pulse Resp B/P (MAP) Pulse Ox O2 Delivery O2 Flow Rate FiO2 06/17/18 07:34 3.5 06/17/18 07:29 Bi-pap 06/17/18 07:00 97.8 81 48 90/59 (69) 93 97.8 Physical Exam: PHYSICAL EXAM GENERAL: Alert, awake, mumbles, does not follow commands. HEENT: Normocephalic, atraumatic, anicteric. No thrush. Oral mucosa moist. NECK: Supple. No JVD. LUNGS: Decreased breath sounds at bases, otherwise clear. No wheezing. CARDIOVASCULAR: S1, S2, tachycardia. No murmurs. ABDOMEN: Soft, nontender, nondistended, no rebound, no guarding. GENITOURINARY: Shanks in place. EXTREMITIES: No edema, no cyanosis. DERM: Multiple skin breakdown over the toes, dry. No evidence of secondary bacterial infection, onychomycosis. NEUROLOGIC: Alert, awake, moves all 4 extremities. PSYCHIATRIC: Unable to obtain. Awake, alert. Medications: Inpatient Meds: Current Medications Medications (Trade) Dose Ordered Sig/Diaz Start Time Stop Time Status Last Admin Dose Admin Acetaminophen (Tylenol Supp) 650 mg 1X ONCE 06/15/18 09:45 06/15/18 09:54 DC 06/15/18 10:17 650 MG Al Hydroxide/Mg Hydroxide (Mylanta Plus Xs) 30 ml PRN Q12HRS PRN 06/15/18 21:00 Albuterol/ Ipratropium (Duoneb) 3 ml RTQID 06/15/18 20:00 06/16/18 19:50 3 ML Atropine Sulfate (ATROPINE 0.5mg SYRINGE) 0.5 mg PRN Q5MIN PRN 06/17/18 01:45 Baclofen (Lioresal) 5 mg TID 06/15/18 14:00 06/16/18 13:27 5 MG Cefepime HCl (Maxipime) 1 gm Q8HRS 06/15/18 22:00 06/17/18 05:24 1 GM Dexmedetomidine HCl 200 mcg/ Sodium Chloride 50 ml @ 0 mls/hr CONT PRN 06/16/18 23:00 06/17/18 07:19 8.5 MLS/HR Diltiazem HCl (Cardizem Iv Push) 10 mg 1X ONCE 06/15/18 10:15 06/15/18 10:16 DC 06/15/18 11:09 10 MG Diltiazem HCl 125 mg/Dextrose 125 ml @ 5 mls/hr CONT PRN 06/15/18 12:15 06/16/18 09:04 15 MLS/HR Doxycycline Hyclate (Vibra-Tab) 100 mg BID 06/16/18 09:00 06/16/18 09:10 100 MG Duloxetine HCl (Cymbalta) 60 mg DAILY 06/15/18 15:00 06/16/18 09:05 60 MG Famotidine (Pepcid) 20 mg QHS 06/15/18 15:00 Furosemide (Lasix) 60 mg 1X ONCE 06/17/18 08:00 06/17/18 08:01 Heparin Sodium (Porcine) (Heparin Sodium) 2,100 unit PRN Q6HRS PRN 06/15/18 16:45 Heparin Sodium/ Dextrose 500 ml @ 0 mls/hr CONT PRN 06/15/18 16:45 06/16/18 11:30 20.4 MLS/HR Info (Anti-Coagulation Monitoring By Pharmacy) 1 each PRN DAILY PRN 06/15/18 17:00 Lidocaine (Lidoderm) 1 patch DAILY 06/15/18 15:00 06/16/18 09:04 1 PATCH Linezolid/Dextrose 300 ml @ 300 mls/hr Q12HR 06/16/18 10:00 06/16/18 10:00 DC Lorazepam (Ativan) 1 mg 1X ONCE 06/16/18 22:00 06/17/18 01:30 DC 06/16/18 22:18 1 MG Magnesium Hydroxide (Milk Of Magnesia) 400 mg PRN QHS PRN 06/15/18 13:45 Methylprednisolone Sodium Succinate (SOLU-Medrol 125MG VIAL) 125 mg STK-MED ONCE 06/15/18 09:54 06/15/18 09:55 DC Metoprolol Tartrate (Lopressor) 50 mg BID 06/16/18 12:00 06/16/18 11:28 50 MG Miscellaneous (Lidoderm Patch Removal) 1 ea QHS 06/15/18 21:00 06/16/18 20:05 1 EA Nitroglycerin (Nitrostat) 0.4 mg PRN Q5MIN PRN 06/15/18 13:45 Ondansetron HCl (Zofran Odt) 4 mg PRN Q8HRS PRN 06/15/18 14:15 Polyethylene Glycol (miraLAX PACKET) 17 gm DAILY 06/15/18 15:00 06/16/18 09:05 17 GM Prednisone (Prednisone) 20 mg DAILY 06/16/18 09:00 06/16/18 09:05 20 MG Sodium Chloride 500 ml @ 500 mls/hr 1X PRN PRN 06/17/18 01:45 Tramadol HCl (Ultram) 50 mg PRN Q6HRS PRN 06/15/18 13:45 06/16/18 16:44 50 MG Vancomycin HCl (Vanco Per Pharmacy) 1 each PRN DAILY PRN 06/15/18 15:30 06/15/18 15:53 1 EACH Vancomycin HCl (Vancomycin Trough Level) 1 each 1X ONCE 06/17/18 10:30 06/17/18 10:31 Vancomycin HCl 1.5 gm/Sodium Chloride 500 ml @ 250 mls/hr Q24H 06/16/18 11:00 06/16/18 11:29 250 MLS/HR Vancomycin HCl 2 gm/Sodium Chloride 500 ml @ 250 mls/hr ONCE ONCE 06/15/18 10:30 06/15/18 12:29 DC 06/15/18 10:27 250 MLS/HR Vitamin D (Vitamin D3) 2,000 unit DAILY 06/15/18 15:00 06/16/18 09:05 2,000 UNIT Labs: Lab Laboratory Tests Test 06/17/18 05:01 White Blood Count 13.6 x10^3/uL (4.0-11.0) Red Blood Count 3.71 x10^6/uL (4.30-5.70) Hemoglobin 11.6 g/dL (13.0-17.5) Hematocrit 35.3 % (39.0-53.0) Mean Corpuscular Volume 95 fL (79-100) Mean Corpuscular Hemoglobin 31 pg (25-35) Mean Corpuscular Hemoglobin Concent 33 g/dL (31-37) Red Cell Distribution Width 15.2 % (11.5-14.5) Platelet Count 163 x10^3/uL (140-400) Heparin Anti-Xa Act, Unfractionated 0.20 IU/mL (0.30-0.70) Sodium Level 145 mmol/L (136-145) Potassium Level 4.3 mmol/L (3.5-5.1) Chloride Level 111 mmol/L (98-107) Carbon Dioxide Level 20 mmol/L (21-32) Anion Gap 14 (6-14) Blood Urea Nitrogen 50 mg/dL (8-26) Creatinine 1.8 mg/dL (0.7-1.3) Estimated GFR (Cockcroft-Gault) 37.1 Glucose Level 133 mg/dL (70-99) Calcium Level 8.2 mg/dL (8.5-10.1) Phosphorus Level 4.0 mg/dL (2.6-4.7) Magnesium Level 1.9 mg/dL (1.8-2.4) Objective: Assessment: 1. Febrile illness, influenza screen negative, likely source respiratory. improving 2. Leukocytosis, also on steroids. 3. Altered mental status, questionable seizure activity. None are noticed at [facility]. 4. Pneumonia,suspected aspiration. 5. Elevated troponin with atrial fibrillation with rapid ventricular response. 6. History of [place]'s disease. 7. Hypertension. 8. Asthma. 9. Cognitive impairment. 10. half-way resident. 11. Acute kidney injury. 12. PENICILLIN AND ERYTHROMYCIN ALLERGY, questionable reaction. Plan: Plan of Care Continue cefepime DC IV Vanc cont doxycycline F/U C/S and Labs in am d/w JULIEN RUANO MD Jun 17, 2018 08:01
[2018-06-17] MEDS: LIDOCAINE (700MG/PATCH) PATCH. TD SCH (08:10)
[2018-06-17] MEDS: IPRATRPIUM/ALBUTEROL 0.5/2.5MG 3 ML NEBU. NEB SCH ×4 (08:18→19:56)
[2018-06-17 08:57] LABS: BASE EXCESS ABG -7 mmol/L (-3-3); HCO3 ABG 18 mmol/L (21-28); PCO2 ABG 33 mmHg (35-46); PO2 ABG 51 mmHg (65-108); SAT O2 ABG 83 % (92-99)
[2018-06-17] MEDS: BACLOFEN 10 MG TABLET. PO SCH ×2 (09:00→14:00)
[2018-06-17] MEDS: POLYETHYLENE GLYCOL 3350 17 GM PACKET. PO SCH (09:00)
[2018-06-17] MEDS: CHOLECALCIFEROL (VITAMIN D3) 1,000 UNIT TABLET PO SCH (09:00)
[2018-06-17] MEDS: DULoxetine HCL 30 MG CAPSULE.DR PO SCH (09:00)
[2018-06-17] MEDS: METOPROLOL TART IMMED RELEASE 50 MG TABLET. PO SCH (09:00)
[2018-06-17] MEDS: DOXYCYCLINE HYCLATE 100 MG TABLET PO SCH (09:00)
[2018-06-17] MEDS: predniSONE 20 MG TABLET PO SCH (09:00)
[2018-06-17 09:02] LABS: FIO2 ABG 100
--- NOTE | 2018-06-17 09:22 | PDOC ---
PROGRESS NOTES Assessment Problems Medical Problems: (1) Acute respiratory distress Status: Acute (2) Adrenal insufficiency Status: Acute (3) Altered level of consciousness Status: Acute (4) Atrial fibrillation with RVR Status: Acute (5) HCAP (healthcare-associated pneumonia) Status: Acute (6) New onset seizure Status: Acute (7) Renal insufficiency Status: Acute (8) Sepsis Status: Acute Tremulous movements probably related to sepsis, doubt epileptic seizure, no recurrence Static encephalopathy, normally behaves at the level of a 10-year-old Plan Hold on anticonvulsants, electroencephalogram Treat medical problems Subjective none Objective Vital Signs Date Time Temp Pulse Resp B/P (MAP) Pulse Ox O2 Delivery O2 Flow Rate FiO2 06/17/18 08:18 98 BiPAP/CPAP 06/17/18 08:00 87 54 96/64 (75) 06/17/18 07:34 3.5 06/17/18 07:00 97.8 97.8 Intake and Output 06/17/18 07:00 Intake Total 2197 ml Output Total 685 ml Balance 1512 ml Intake Oral 720 ml IV Total 1477 ml Output Urine Total 685 ml PHYSICAL EXAM In respiratory distress, tachypneic, on BiPap, does not follow commands PERRL. EOMI. CN: no focal findings. Muscle tone: normal. Muscle strength: moves extremities DTR: 1+ Plantar reflex: flexor Gait: not examined Sensory exam: not cooperative Cerebellar: not cooperative. Review of Relevant I have reviewed the following items tricia (where applicable) has been applied. Labs Laboratory Tests Test 06/15/18 09:42 06/15/18 09:49 06/15/18 09:55 06/15/18 10:13 Glucose (Fingerstick) 140 mg/dL (70-99) White Blood Count 18.2 x10^3/uL (4.0-11.0) Red Blood Count 5.08 x10^6/uL (4.30-5.70) Hemoglobin 15.8 g/dL (13.0-17.5) Hematocrit 48.2 % (39.0-53.0) Mean Corpuscular Volume 95 fL (79-100) Mean Corpuscular Hemoglobin 31 pg (25-35) Mean Corpuscular Hemoglobin Concent 33 g/dL (31-37) Red Cell Distribution Width 14.6 % (11.5-14.5) Platelet Count 224 x10^3/uL (140-400) Neutrophils (%) (Auto) 65 % (31-73) Lymphocytes (%) (Auto) 28 % (24-48) Monocytes (%) (Auto) 5 % (0-9) Eosinophils (%) (Auto) 2 % (0-3) Basophils (%) (Auto) 1 % (0-3) Neutrophils # (Auto) 11.8 x10^3uL (1.8-7.7) Lymphocytes # (Auto) 5.0 x10^3/uL (1.0-4.8) Monocytes # (Auto) 0.9 x10^3/uL (0.0-1.1) Eosinophils # (Auto) 0.4 x10^3/uL (0.0-0.7) Basophils # (Auto) 0.1 x10^3/uL (0.0-0.2) Prothrombin Time 12.9 SEC (11.7-14.0) Prothromb Time International Ratio 1.0 (0.8-1.1) Sodium Level 142 mmol/L (136-145) Potassium Level 4.0 mmol/L (3.5-5.1) Chloride Level 102 mmol/L (98-107) Carbon Dioxide Level 25 mmol/L (21-32) Anion Gap 15 (6-14) Blood Urea Nitrogen 21 mg/dL (8-26) Creatinine 1.8 mg/dL (0.7-1.3) Estimated GFR (Cockcroft-Gault) 37.1 BUN/Creatinine Ratio 12 (6-20) Glucose Level 133 mg/dL (70-99) Lactic Acid Level 3.0 mmol/L (0.4-2.0) Calcium Level 9.7 mg/dL (8.5-10.1) Magnesium Level 1.8 mg/dL (1.8-2.4) Total Bilirubin 0.9 mg/dL (0.2-1.0) Aspartate Amino Transf (AST/SGOT) 23 U/L (15-37) Alanine Aminotransferase (ALT/SGPT) 15 U/L (16-63) Alkaline Phosphatase 98 U/L (46-116) Creatine Kinase 77 U/L (39-308) Troponin I Quantitative 0.562 ng/mL (0.000-0.055) Total Protein 7.4 g/dL (6.4-8.2) Albumin 3.7 g/dL (3.4-5.0) Albumin/Globulin Ratio 1.0 (1.0-1.7) O2 Saturation 90 % (92-99) Arterial Blood pH 7.47 (7.35-7.45) Arterial Blood pCO2 at Patient Temp 30 mmHg (35-46) Arterial Blood pO2 at Patient Temp 55 mmHg (65-108) Arterial Blood HCO3 22 mmol/L (21-28) Arterial Blood Base Excess -1 mmol/L (-3-3) FiO2 28 Influenza Type A Antigen Negative (NEGATIVE) Influenza Type B Antigen Negative (NEGATIVE) Urine Collection Type Unknown Urine Color Yellow Urine Clarity Clear Urine pH 8.0 Urine Specific [place] 1.015 Urine Protein 30 mg/dL (NEG-TRACE) Urine Glucose (UA) Negative mg/dL (NEG) Urine Ketones (Stick) Trace mg/dL (NEG) Urine Blood Moderate (NEG) Urine Nitrite Negative (NEG) Urine Bilirubin Negative (NEG) Urine Urobilinogen Dipstick 0.2 mg/dL (0.2 mg/dL) Urine Leukocyte Esterase Negative (NEG) Urine RBC 11-20 /HPF (0-2) Urine WBC 1-4 /HPF (0-4) Urine Squamous Epithelial Cells Occ /LPF Urine Bacteria Few /HPF (0-FEW) Urine Mucus Mod /LPF Test 06/15/18 14:22 06/15/18 23:00 06/16/18 05:00 06/16/18 06:00 Lactic Acid Level 2.9 mmol/L (0.4-2.0) 2.4 mmol/L (0.4-2.0) Troponin I Quantitative 1.515 ng/mL (0.000-0.055) 0.589 ng/mL (0.000-0.055) Heparin Anti-Xa Act, Unfractionated 0.54 IU/mL (0.30-0.70) 0.38 IU/mL (0.30-0.70) White Blood Count 20.0 x10^3/uL (4.0-11.0) Red Blood Count 4.04 x10^6/uL (4.30-5.70) Hemoglobin 12.4 g/dL (13.0-17.5) Hematocrit 38.2 % (39.0-53.0) Mean Corpuscular Volume 95 fL (79-100) Mean Corpuscular Hemoglobin 31 pg (25-35) Mean Corpuscular Hemoglobin Concent 33 g/dL (31-37) Red Cell Distribution Width 14.7 % (11.5-14.5) Platelet Count 172 x10^3/uL (140-400) Neutrophils (%) (Auto) 90 % (31-73) Lymphocytes (%) (Auto) 6 % (24-48) Monocytes (%) (Auto) 4 % (0-9) Eosinophils (%) (Auto) 0 % (0-3) Basophils (%) (Auto) 0 % (0-3) Neutrophils # (Auto) 18.0 x10^3uL (1.8-7.7) Lymphocytes # (Auto) 1.2 x10^3/uL (1.0-4.8) Monocytes # (Auto) 0.9 x10^3/uL (0.0-1.1) Eosinophils # (Auto) 0.0 x10^3/uL (0.0-0.7) Basophils # (Auto) 0.0 x10^3/uL (0.0-0.2) Segmented Neutrophils % 83 % (35-66) Band Neutrophils % 8 % (0-9) Lymphocytes % 4 % (24-48) Monocytes % 5 % (0-10) Platelet Estimate Adequate (ADEQUATE) Anisocytosis Slight Nasal Screen MRSA (PCR) Negative (Negative) Sodium Level 142 mmol/L (136-145) Potassium Level 3.5 mmol/L (3.5-5.1) Chloride Level 107 mmol/L (98-107) Carbon Dioxide Level 20 mmol/L (21-32) Anion Gap 15 (6-14) Blood Urea Nitrogen 24 mg/dL (8-26) Creatinine 1.4 mg/dL (0.7-1.3) Estimated GFR (Cockcroft-Gault) 49.5 BUN/Creatinine Ratio 17 (6-20) Glucose Level 230 mg/dL (70-99) Calcium Level 8.1 mg/dL (8.5-10.1) Total Bilirubin 1.0 mg/dL (0.2-1.0) Aspartate Amino Transf (AST/SGOT) 26 U/L (15-37) Alanine Aminotransferase (ALT/SGPT) 14 U/L (16-63) Alkaline Phosphatase 56 U/L (46-116) Total Protein 5.1 g/dL (6.4-8.2) Albumin 2.6 g/dL (3.4-5.0) Albumin/Globulin Ratio 1.0 (1.0-1.7) Procalcitonin 6.28 ng/mL (0.00-0.10) Test 06/17/18 05:01 06/17/18 08:45 White Blood Count 13.6 x10^3/uL (4.0-11.0) Red Blood Count 3.71 x10^6/uL (4.30-5.70) Hemoglobin 11.6 g/dL (13.0-17.5) Hematocrit 35.3 % (39.0-53.0) Mean Corpuscular Volume 95 fL (79-100) Mean Corpuscular Hemoglobin 31 pg (25-35) Mean Corpuscular Hemoglobin Concent 33 g/dL (31-37) Red Cell Distribution Width 15.2 % (11.5-14.5) Platelet Count 163 x10^3/uL (140-400) Heparin Anti-Xa Act, Unfractionated 0.20 IU/mL (0.30-0.70) Sodium Level 145 mmol/L (136-145) Potassium Level 4.3 mmol/L (3.5-5.1) Chloride Level 111 mmol/L (98-107) Carbon Dioxide Level 20 mmol/L (21-32) Anion Gap 14 (6-14) Blood Urea Nitrogen 50 mg/dL (8-26) Creatinine 1.8 mg/dL (0.7-1.3) Estimated GFR (Cockcroft-Gault) 37.1 Glucose Level 133 mg/dL (70-99) Calcium Level 8.2 mg/dL (8.5-10.1) Phosphorus Level 4.0 mg/dL (2.6-4.7) Magnesium Level 1.9 mg/dL (1.8-2.4) O2 Saturation 83 % (92-99) Arterial Blood pH 7.35 (7.35-7.45) Arterial Blood pCO2 at Patient Temp 33 mmHg (35-46) Arterial Blood pO2 at Patient Temp 51 mmHg (65-108) Arterial Blood HCO3 18 mmol/L (21-28) Arterial Blood Base Excess -7 mmol/L (-3-3) FiO2 100 Laboratory Tests Test 06/17/18 05:01 06/17/18 08:45 White Blood Count 13.6 x10^3/uL (4.0-11.0) Red Blood Count 3.71 x10^6/uL (4.30-5.70) Hemoglobin 11.6 g/dL (13.0-17.5) Hematocrit 35.3 % (39.0-53.0) Mean Corpuscular Volume 95 fL (79-100) Mean Corpuscular Hemoglobin 31 pg (25-35) Mean Corpuscular Hemoglobin Concent 33 g/dL (31-37) Red Cell Distribution Width 15.2 % (11.5-14.5) Platelet Count 163 x10^3/uL (140-400) Heparin Anti-Xa Act, Unfractionated 0.20 IU/mL (0.30-0.70) Sodium Level 145 mmol/L (136-145) Potassium Level 4.3 mmol/L (3.5-5.1) Chloride Level 111 mmol/L (98-107) Carbon Dioxide Level 20 mmol/L (21-32) Anion Gap 14 (6-14) Blood Urea Nitrogen 50 mg/dL (8-26) Creatinine 1.8 mg/dL (0.7-1.3) Estimated GFR (Cockcroft-Gault) 37.1 Glucose Level 133 mg/dL (70-99) Calcium Level 8.2 mg/dL (8.5-10.1) Phosphorus Level 4.0 mg/dL (2.6-4.7) Magnesium Level 1.9 mg/dL (1.8-2.4) O2 Saturation 83 % (92-99) Arterial Blood pH 7.35 (7.35-7.45) Arterial Blood pCO2 at Patient Temp 33 mmHg (35-46) Arterial Blood pO2 at Patient Temp 51 mmHg (65-108) Arterial Blood HCO3 18 mmol/L (21-28) Arterial Blood Base Excess -7 mmol/L (-3-3) FiO2 100 Microbiology 06/15/18 Blood Culture - Preliminary, Resulted NO GROWTH AFTER 1 DAY Medications Current Medications Sodium Chloride 1,000 ml @ 1,000 mls/hr Q1H IV Last administered on 06/15/18at 09:42; Start 06/15/18 at 09:42; Stop 06/15/18 at 10:41; Status DC Sodium Chloride 2,270 ml @ 378.333 mls/hr 1X ONCE IV Last administered on at 10:26; Start 06/15/18 at 09:45; Stop 06/15/18 at 15:44; Status DC Acetaminophen (Tylenol Supp) 650 mg 1X ONCE [place] Last administered on 06/15/18at 10:17; Start 06/15/18 at 09:45; Stop 06/15/18 at 09:54; Status DC Cefepime HCl (Maxipime) 1 gm 1X ONCE IVP Last administered on 06/15/18at 10:16 ; Start 06/15/18 at 10:00; Stop 06/15/18 at 10:04; Status DC Vancomycin HCl 250 ml @ 250 mls/hr 1X ONCE IV ; Start 06/15/18 at 10:00; Stop 06/15/18 at 10:59; Status UNV Vancomycin HCl 2 gm/Sodium Chloride 500 ml @ 250 mls/hr ONCE ONCE IV Last administered on 06/15/18at 10:27; Start 06/15/18 at 10:30; Stop 06/15/18 at 12:29 ; Status DC Methylprednisolone Sodium Succinate (SOLU-Medrol 125MG VIAL) 250 mg 1X ONCE IV Last administered on 06/15/18at 09:57; Start 06/15/18 at 10:00; Stop 06/15/18 at 10:01; Status DC Albuterol/ Ipratropium (Duoneb) 3 ml 1X ONCE NEB Last administered on at 10:50; Start 06/15/18 at 10:00; Stop 06/15/18 at 10:01; Status DC Methylprednisolone Sodium Succinate (SOLU-Medrol 125MG VIAL) 125 mg STK-MED ONCE .ROUTE ; Start 06/15/18 at 09:54; Stop 06/15/18 at 09:55; Status DC Diltiazem HCl (Cardizem Iv Push) 10 mg 1X ONCE IVP Last administered on at 11:09; Start 06/15/18 at 10:15; Stop 06/15/18 at 10:16; Status DC Lorazepam (Ativan) 1 mg 1X ONCE IV Last administered on 06/15/18 10:37; Start 06/15/18 at 10:45; Stop 06/15/18 at 10:46; Status DC Sodium Chloride 1,000 ml @ 150 mls/hr Q6H40M IV Last administered on 09:04; Start 06/15/18 at 11:58; Stop 06/16/18 at 11:57; Status DC Diltiazem HCl 125 mg/Dextrose 125 ml @ 5 mls/hr CONT PRN IV SEE I/O RECORD Last administered on 06/16/18 09:04; Start 06/15/18 at 12:15 Baclofen (Lioresal) 5 mg TID PO Last administered on 06/16/18 13:27; Start at 14:00 Vitamin D (Vitamin D3) 2,000 unit DAILY PO Last administered on 06/16/18 09:05 ; Start 06/15/18 at 15:00 Famotidine (Pepcid) 20 mg QHS PO ; Start 06/15/18 at 15:00 Al Hydroxide/Mg Hydroxide (Mylanta Plus Xs) 30 ml PRN Q12HRS PRN PO HEARTBURN / GAS; Start 06/15/18 at 21:00 Magnesium Hydroxide (Milk Of Magnesia) 400 mg PRN QHS PRN PO CONSTIPATION; Start 06/15/18 at 13:45 Nitroglycerin (Nitrostat) 0.4 mg PRN Q5MIN PRN SL CHEST PAIN; Start 06/15/18 at 13:45 Tramadol HCl (Ultram) 50 mg PRN Q6HRS PRN PO PAIN Last administered on at 16:44; Start 06/15/18 at 13:45 Duloxetine HCl (Cymbalta) 60 mg DAILY PO Last administered on 06/16/18 09:05; Start 06/15/18 at 15:00 Lidocaine (Lidoderm) 1 patch DAILY TD Last administered on 06/17/18at 08:10; Start 06/15/18 at 15:00 Ondansetron HCl (Zofran Odt) 4 mg PRN Q8HRS PRN PO NAUSEA/VOMITING; Start 06/15 at 14:15 Polyethylene Glycol (miraLAX PACKET) 17 gm DAILY PO Last administered on 09:05; Start 06/15/18 at 15:00 Miscellaneous (Lidoderm Patch Removal) 1 ea QHS MC Last administered on at 20:05; Start 06/15/18 at 21:00 Vancomycin HCl (Vanco Per Pharmacy) 1 each PRN DAILY PRN MC SEE COMMENTS Last administered on 06/15/18at 15:53; Start 06/15/18 at 15:30; Stop 06/17/18 at 08:28 ; Status DC Cefepime HCl (Maxipime) 2 gm Q8HRS IVP Last administered on 06/15/18at 15:50; Start 06/15/18 at 15:30; Stop 06/15/18 at 18:43; Status DC Vancomycin HCl 1.5 gm/Sodium Chloride 500 ml @ 250 mls/hr Q24H IV Last administered on 06/16/18 11:29; Start 06/16/18 at 11:00; Stop 06/17/18 at 08:27 ; Status DC Vancomycin HCl (Vancomycin Trough Level) 1 each 1X ONCE MC ; Start 06/17/18 at 10:30; Stop 06/17/18 at 10:30; Status DC Albuterol/ Ipratropium (Duoneb) 3 ml RTQID NEB Last administered on 06/17/18at 08:18; Start 06/15/18 at 20:00 Prednisone (Prednisone) 20 mg DAILY PO Last administered on 06/16/18 09:05; Start 06/16/18 at 09:00 Heparin Sodium (Porcine) (Heparin Sodium) 4,000 unit 1X ONCE IV Last administered on 06/15/18at 16:55; Start 06/15/18 at 16:45; Stop 06/15/18 at 16:51 ; Status DC Heparin Sodium/ Dextrose 500 ml @ 0 mls/hr CONT PRN IV SEE I/O RECORD Last administered on 06/16/18at 11:30; Start 06/15/18 at 16:45 Heparin Sodium (Porcine) (Heparin Sodium) 2,100 unit PRN Q6HRS PRN IV FOR UFH LEVEL LESS THAN 0.2; Start 06/15/18 at 16:45 Info (Anti-Coagulation Monitoring By Pharmacy) 1 each PRN DAILY PRN MC SEE COMMENTS; Start 06/15/18 at 17:00 Cefepime HCl (Maxipime) 1 gm Q8HRS IVP Last administered on 06/17/18at 05:24; Start 06/15/18 at 22:00 Doxycycline Hyclate (Vibra-Tab) 100 mg BID PO Last administered on 06/16/18at 09 :10; Start 06/16/18 at 09:00 Linezolid/Dextrose 300 ml @ 300 mls/hr Q12HR IV ; Start 06/16/18 at 10:00; Stop 06/16/18 at 10:00; Status DC Metoprolol Tartrate (Lopressor) 50 mg BID PO Last administered on 06/16/18at 11: 28; Start 06/16/18 at 12:00 Lorazepam (Ativan) 2 mg PRN Q4HRS PRN IV ANXIETY / AGITATION Last administered on 06/17/18at 00:01; Start 06/16/18 at 19:45 Lorazepam (Ativan) 1 mg 1X ONCE IV Last administered on 06/16/18at 22:18; Start 06/16/18 at 22:00; Stop 06/17/18 at 01:30; Status DC Dexmedetomidine HCl 200 mcg/ Sodium Chloride 50 ml @ 0 mls/hr CONT PRN IV PER PROTOCOL Last administered on 06/17/18at 07:19; Start 06/16/18 at 23:00 Sodium Chloride 500 ml @ 500 mls/hr 1X PRN PRN IV SEE COMMENTS; Start at 01:45 Atropine Sulfate (ATROPINE 0.5mg SYRINGE) 0.5 mg PRN Q5MIN PRN IV SEE COMMENTS ; Start 06/17/18 at 01:45 Furosemide (Lasix) 60 mg 1X ONCE IVP Last administered on 06/17/18at 08:08; Start 06/17/18 at 08:00; Stop 06/17/18 at 08:01; Status DC Active Scripts Active Meloxicam 7.5 Mg Tablet 7.5 Mg PO DAILY Zofran (Ondansetron Hcl) 4 Mg Tablet 4 Mg PO PRN TID PRN nausea/vomiting Reported Tramadol Hcl 50 Mg Tablet 50 Mg PO Q6HRS PRN NITROGLYCERIN SubLingual (Nitroglycerin) 0.4 Mg Tab.subl 0.4 Mg SL PRN Q5MIN PRN Milk Of Magnesia (Magnesium Hydroxide) 400 Mg/5 Ml Oral.susp 400 Mg PO PRN QHS PRN [place] Greaseless Cream (Methyl Salicylate/Menthol) 57 Gm Cream..g. 57 Gm TP PRN Q1HR PRN Vitamin D3 (Cholecalciferol (Vitamin D3)) 1,000 Unit Tablet 2,000 Unit PO DAILY Vitamin B-12 (Cyanocobalamin (Vitamin B-12)) 1,000 Mcg Tablet 1 Tab PO DAILY Trazodone Hcl 50 Mg Tablet 50 Mg PO HS Miralax (Polyethylene Glycol 3350) 17 Gm Powd.pack 1 Pkt PO DAILY Maalox Maximum Strength Susp (Mag Hydrox/Al Hydrox/Simeth) 355 Ml Oral.susp 355 Ml PO Q12HR Cortef (Hydrocortisone) 20 Mg Tablet 20 Mg PO AFTRNOON PRN Cortef (Hydrocortisone) 10 Mg Tablet 15 Mg PO DAILY Pepcid (Famotidine) 20 Mg Tablet 20 Mg PO BID Cymbalta (Duloxetine Hcl) 60 Mg Capsule.dr 1 Cap PO DAILY Baclofen 10 Mg Tablet 5 Mg PO TID Lidocaine 1 Each Adh..patch 1 Each TP DAILY Vitals/I & O Vital Sign - Last 24 Hours 06/16/18 06/16/18 06/16/18 06/16/18 10:03 11:00 11:28 11:31 Pulse 130 140 130 Resp 28 30 30 B/P (MAP) 101/60 (74) 98/64 (75) 101/60 Pulse Ox 96 96 96 O2 Delivery Nasal Cannula Nasal Cannula Nasal Cannula O2 Flow Rate 2.0 2.0 2.0 06/16/18 06/16/18 06/16/18 06/16/18 12:00 12:00 13:00 13:07 Pulse 105 89 Resp 30 24 B/P (MAP) 93/60 (71) 86/61 (69) Pulse Ox 96 97 93 O2 Delivery Nasal Cannula Nasal Cannula Nasal Cannula Nasal Cannula O2 Flow Rate 2.0 2.0 2.0 3.0 06/16/18 06/16/18 06/16/18 06/16/18 14:00 15:00 16:00 16:04 Temp 98.4 98.4 Pulse 89 90 91 Resp 28 24 28 B/P (MAP) 98/64 (75) 102/60 (74) 102/66 (78) Pulse Ox 97 95 95 O2 Delivery Nasal Cannula Nasal Cannula Nasal Cannula Nasal Cannula O2 Flow Rate 2.0 2.0 2.0 2.0 06/16/18 06/16/18 06/16/18 06/16/18 16:44 16:45 17:00 17:45 Pulse 100 Resp 30 28 30 B/P (MAP) 100/64 (76) Pulse Ox 95 94 94 94 O2 Delivery Nasal Cannula Nasal Cannula Nasal Cannula Nasal Cannula O2 Flow Rate 2.0 3.0 2.0 2.0 06/16/18 06/16/18 06/16/18 06/16/18 18:00 19:00 19:29 19:43 Temp 97.0 97.0 Pulse 96 90 Resp 28 24 B/P (MAP) 108/73 (85) 112/72 (85) Pulse Ox 94 96 O2 Delivery Nasal Cannula Nasal Cannula Nasal Cannula O2 Flow Rate 2.0 3.5 3.5 3.5 06/16/18 06/16/18 06/16/18 06/16/18 19:50 20:00 20:24 21:05 Temp 97.6 98.3 97.6 98.3 Pulse 76 76 103 Resp 46 56 B/P (MAP) 117/65 (82) 117/65 110/69 (83) Pulse Ox 94 99 96 O2 Delivery BiPAP/CPAP BiPAP/CPAP BiPAP/CPAP 06/16/18 06/16/18 06/16/18 06/16/18 21:10 22:00 23:00 23:59 Temp 98.0 98.2 98.0 98.2 Pulse 107 100 Resp 60 54 B/P (MAP) 158/97 (117) 117/71 (86) Pulse Ox 97 93 96 O2 Delivery BiPAP/CPAP BiPAP/CPAP BiPAP/CPAP Bi-pap 06/17/18 06/17/18 06/17/18 06/17/18 00:01 00:01 00:15 01:00 Temp 98.0 98.2 98.0 98.2 Pulse 80 91 Resp 50 60 B/P (MAP) 87/50 (62) 131/69 (89) Pulse Ox 99 99 95 O2 Delivery BiPAP/CPAP BiPAP/CPAP BiPAP/CPAP O2 Flow Rate 3.5 06/17/18 06/17/18 06/17/18 06/17/18 02:00 02:00 03:00 03:56 Temp 98.8 98.0 98.8 98.0 Pulse 93 80 Resp 56 55 B/P (MAP) 142/92 (109) 91/55 (67) Pulse Ox 91 97 92 O2 Delivery BiPAP/CPAP BiPAP/CPAP BiPAP/CPAP O2 Flow Rate 3.5 06/17/18 06/17/18 06/17/18 06/17/18 03:57 04:00 05:00 05:15 Temp 97.9 97.7 97.9 97.7 Pulse 87 78 Resp 49 47 B/P (MAP) 102/60 (74) 106/60 (75) Pulse Ox 98 97 98 O2 Delivery Bi-pap BiPAP/CPAP BiPAP/CPAP BiPAP/CPAP 06/17/18 06/17/18 06/17/18 06/17/18 06:09 07:00 07:29 07:34 Temp 97.7 97.8 97.7 97.8 Pulse 72 81 Resp 49 48 B/P (MAP) 87/57 (67) 90/59 (69) Pulse Ox 94 93 O2 Delivery BiPAP/CPAP BiPAP/CPAP Bi-pap O2 Flow Rate 3.5 06/17/18 06/17/18 08:00 08:18 Pulse 87 Resp 54 B/P (MAP) 96/64 (75) Pulse Ox 93 98 O2 Delivery BiPAP/CPAP BiPAP/CPAP Intake and Output 06/16/18 06/16/18 06/17/18 15:00 23:00 07:00 Intake Total 790 ml 1407 ml 0 ml Output Total 475 ml 145 ml 65 ml Balance 315 ml 1262 ml -65 ml KAT JIMENEZ MD Jun 17, 2018 09:22
[2018-06-17] MEDS ORDERED: SODIUM BICARB ADULT 8.4% 50 MEQ/50 ML DISP.SYRIN. ONE (09:56)
[2018-06-17] MEDS ORDERED: SODIUM BICARB ADULT 8.4% 50 MEQ/50 ML DISP.SYRIN. IV ONE (10:00)
--- NOTE | 2018-06-17 10:03 | PDOC ---
PULMONARY PROGRESS NOTES Subjective worsening hypoxic RF on 100% BIPAP, increase R/R not responsive to lasix Vitals Vital Signs Date Time Temp Pulse Resp B/P (MAP) Pulse Ox O2 Delivery O2 Flow Rate FiO2 06/17/18 09:00 97 52 104/53 (70) 93 BiPAP/CPAP 06/17/18 07:34 3.5 06/17/18 07:00 97.8 97.8 General: Lethargic Lungs: Other (decrease bs) Cardiovascular: S1 Abdomen: Soft Extremities: Other (1+edema) Labs Laboratory Tests Test 06/15/18 10:13 06/15/18 14:22 06/15/18 23:00 06/16/18 05:00 Urine Collection Type Unknown Urine Color Yellow Urine Clarity Clear Urine pH 8.0 Urine Specific [place] 1.015 Urine Protein 30 mg/dL (NEG-TRACE) Urine Glucose (UA) Negative mg/dL (NEG) Urine Ketones (Stick) Trace mg/dL (NEG) Urine Blood Moderate (NEG) Urine Nitrite Negative (NEG) Urine Bilirubin Negative (NEG) Urine Urobilinogen Dipstick 0.2 mg/dL (0.2 mg/dL) Urine Leukocyte Esterase Negative (NEG) Urine RBC 11-20 /HPF (0-2) Urine WBC 1-4 /HPF (0-4) Urine Squamous Epithelial Cells Occ /LPF Urine Bacteria Few /HPF (0-FEW) Urine Mucus Mod /LPF Lactic Acid Level 2.9 mmol/L (0.4-2.0) Troponin I Quantitative 1.515 ng/mL (0.000-0.055) Heparin Anti-Xa Act, Unfractionated 0.54 IU/mL (0.30-0.70) 0.38 IU/mL (0.30-0.70) White Blood Count 20.0 x10^3/uL (4.0-11.0) Red Blood Count 4.04 x10^6/uL (4.30-5.70) Hemoglobin 12.4 g/dL (13.0-17.5) Hematocrit 38.2 % (39.0-53.0) Mean Corpuscular Volume 95 fL (79-100) Mean Corpuscular Hemoglobin 31 pg (25-35) Mean Corpuscular Hemoglobin Concent 33 g/dL (31-37) Red Cell Distribution Width 14.7 % (11.5-14.5) Platelet Count 172 x10^3/uL (140-400) Neutrophils (%) (Auto) 90 % (31-73) Lymphocytes (%) (Auto) 6 % (24-48) Monocytes (%) (Auto) 4 % (0-9) Eosinophils (%) (Auto) 0 % (0-3) Basophils (%) (Auto) 0 % (0-3) Neutrophils # (Auto) 18.0 x10^3uL (1.8-7.7) Lymphocytes # (Auto) 1.2 x10^3/uL (1.0-4.8) Monocytes # (Auto) 0.9 x10^3/uL (0.0-1.1) Eosinophils # (Auto) 0.0 x10^3/uL (0.0-0.7) Basophils # (Auto) 0.0 x10^3/uL (0.0-0.2) Segmented Neutrophils % 83 % (35-66) Band Neutrophils % 8 % (0-9) Lymphocytes % 4 % (24-48) Monocytes % 5 % (0-10) Platelet Estimate Adequate (ADEQUATE) Anisocytosis Slight Nasal Screen MRSA (PCR) Negative (Negative) Test 06/16/18 06:00 06/17/18 05:01 06/17/18 08:45 Sodium Level 142 mmol/L (136-145) 145 mmol/L (136-145) Potassium Level 3.5 mmol/L (3.5-5.1) 4.3 mmol/L (3.5-5.1) Chloride Level 107 mmol/L (98-107) 111 mmol/L (98-107) Carbon Dioxide Level 20 mmol/L (21-32) 20 mmol/L (21-32) Anion Gap 15 (6-14) 14 (6-14) Blood Urea Nitrogen 24 mg/dL (8-26) 50 mg/dL (8-26) Creatinine 1.4 mg/dL (0.7-1.3) 1.8 mg/dL (0.7-1.3) Estimated GFR (Cockcroft-Gault) 49.5 37.1 BUN/Creatinine Ratio 17 (6-20) Glucose Level 230 mg/dL (70-99) 133 mg/dL (70-99) Lactic Acid Level 2.4 mmol/L (0.4-2.0) Calcium Level 8.1 mg/dL (8.5-10.1) 8.2 mg/dL (8.5-10.1) Total Bilirubin 1.0 mg/dL (0.2-1.0) Aspartate Amino Transf (AST/SGOT) 26 U/L (15-37) Alanine Aminotransferase (ALT/SGPT) 14 U/L (16-63) Alkaline Phosphatase 56 U/L (46-116) Troponin I Quantitative 0.589 ng/mL (0.000-0.055) Total Protein 5.1 g/dL (6.4-8.2) Albumin 2.6 g/dL (3.4-5.0) Albumin/Globulin Ratio 1.0 (1.0-1.7) Procalcitonin 6.28 ng/mL (0.00-0.10) White Blood Count 13.6 x10^3/uL (4.0-11.0) Red Blood Count 3.71 x10^6/uL (4.30-5.70) Hemoglobin 11.6 g/dL (13.0-17.5) Hematocrit 35.3 % (39.0-53.0) Mean Corpuscular Volume 95 fL (79-100) Mean Corpuscular Hemoglobin 31 pg (25-35) Mean Corpuscular Hemoglobin Concent 33 g/dL (31-37) Red Cell Distribution Width 15.2 % (11.5-14.5) Platelet Count 163 x10^3/uL (140-400) Heparin Anti-Xa Act, Unfractionated 0.20 IU/mL (0.30-0.70) Phosphorus Level 4.0 mg/dL (2.6-4.7) Magnesium Level 1.9 mg/dL (1.8-2.4) O2 Saturation 83 % (92-99) Arterial Blood pH 7.35 (7.35-7.45) Arterial Blood pCO2 at Patient Temp 33 mmHg (35-46) Arterial Blood pO2 at Patient Temp 51 mmHg (65-108) Arterial Blood HCO3 18 mmol/L (21-28) Arterial Blood Base Excess -7 mmol/L (-3-3) FiO2 100 Laboratory Tests Test 06/17/18 05:01 06/17/18 08:45 White Blood Count 13.6 x10^3/uL (4.0-11.0) Red Blood Count 3.71 x10^6/uL (4.30-5.70) Hemoglobin 11.6 g/dL (13.0-17.5) Hematocrit 35.3 % (39.0-53.0) Mean Corpuscular Volume 95 fL (79-100) Mean Corpuscular Hemoglobin 31 pg (25-35) Mean Corpuscular Hemoglobin Concent 33 g/dL (31-37) Red Cell Distribution Width 15.2 % (11.5-14.5) Platelet Count 163 x10^3/uL (140-400) Heparin Anti-Xa Act, Unfractionated 0.20 IU/mL (0.30-0.70) Sodium Level 145 mmol/L (136-145) Potassium Level 4.3 mmol/L (3.5-5.1) Chloride Level 111 mmol/L (98-107) Carbon Dioxide Level 20 mmol/L (21-32) Anion Gap 14 (6-14) Blood Urea Nitrogen 50 mg/dL (8-26) Creatinine 1.8 mg/dL (0.7-1.3) Estimated GFR (Cockcroft-Gault) 37.1 Glucose Level 133 mg/dL (70-99) Calcium Level 8.2 mg/dL (8.5-10.1) Phosphorus Level 4.0 mg/dL (2.6-4.7) Magnesium Level 1.9 mg/dL (1.8-2.4) O2 Saturation 83 % (92-99) Arterial Blood pH 7.35 (7.35-7.45) Arterial Blood pCO2 at Patient Temp 33 mmHg (35-46) Arterial Blood pO2 at Patient Temp 51 mmHg (65-108) Arterial Blood HCO3 18 mmol/L (21-28) Arterial Blood Base Excess -7 mmol/L (-3-3) FiO2 100 Medications Active Scripts Medications Dose Route/Sig Max Daily Dose Days Date Category Dose Instructions Tramadol Hcl 50 Mg Tablet 50 Mg PO Q6HRS PRN 06/15/18 Reported NITROGLYCERIN SubLingual (Nitroglycerin) 0.4 Mg Tab.subl 0.4 Mg SL PRN Q5MIN PRN 06/15/18 Reported Milk Of Magnesia (Magnesium Hydroxide) 400 Mg/5 Ml Oral.susp 400 Mg PO PRN QHS PRN 06/15/18 Reported [place] Greaseless Cream (Methyl Salicylate/Menthol) 57 Gm Cream..g. 57 Gm TP PRN Q1HR PRN 06/15/18 Reported Vitamin D3 (Cholecalciferol (Vitamin D3)) 1,000 Unit Tablet 2,000 Unit PO DAILY 06/15/18 Reported Vitamin B-12 (Cyanocobalamin (Vitamin B-12)) 1,000 Mcg Tablet 1 Tab PO DAILY 06/15/18 Reported Trazodone Hcl 50 Mg Tablet 50 Mg PO HS 06/15/18 Reported Miralax (Polyethylene Glycol 3350) 17 Gm Powd.pack 1 Pkt PO DAILY 06/15/18 Reported Maalox Maximum Strength Susp (Mag Hydrox/Al Hydrox/Simeth) 355 Ml Oral.susp 355 Ml PO Q12HR 06/15/18 Reported Cortef (Hydrocortisone) 20 Mg Tablet 20 Mg PO AFTRNOON PRN 06/15/18 Reported Cortef (Hydrocortisone) 10 Mg Tablet 15 Mg PO DAILY 06/15/18 Reported Pepcid (Famotidine) 20 Mg Tablet 20 Mg PO BID 06/15/18 Reported Cymbalta (Duloxetine Hcl) 60 Mg Capsule.dr 1 Cap PO DAILY 06/15/18 Reported Baclofen 10 Mg Tablet 5 Mg PO TID 06/15/18 Reported Lidocaine 1 Each Adh..patch 1 Each TP DAILY 06/15/18 Reported Meloxicam 7.5 Mg Tablet 7.5 Mg PO DAILY 05/25/18 Rx Zofran (Ondansetron Hcl) 4 Mg Tablet 4 Mg PO PRN TID PRN 04/04/18 Rx nausea/vomiting Comments CXR 06/17 WORSENING RIGHT LUNG INFILTRATES, LARGE VOLUME LOSS LEFT LUNG Impression . 1. Acute hypoxic respiratory failure secondary to acute toxic encephalopathy likely related to psych medications POA. Now with worsening hypoxia/ worsening cxr, likely due to aspiration pneumonia right and suspected mucous plug left 2. Leukocytosis and increased procalcitonin level, related to aspiration pneumonia. ID has been consulted and follow their recommendation regarding antibiotic. 3. Acute kidney injury.worse 4. Cognitive impairment. 5. Atrial fibrillation with rapid ventricular response. 6. History of [place] disease, currently on steroids, 7. Metabolic acidosis, related to ISIDOR 8. Encephalopathy Plan . 1. BIPAP with 100% Fio2/ precedex drip 2. Doubt CHF, failed to respond to lasix/ increase ISIDRO 3. Continue BS antibiotic per Infectious Disease. 4. Monitor white cell count. 5. Continue prednisone. 6. Bronchodilators. 7. Monitor chest x-ray./ prn suction/ chest PT 8. Discussed with RN / RT/ ID 9. DNR/DNI/ Not stable for Bronch cct 35 min KENRICK REYEZ MD Jun 17, 2018 10:03
--- NOTE | 2018-06-17 10:43 | PDOC ---
PROGRESS NOTES Chief Complaint Chief Complaint Severe sepsis Pneumonia bilaterally, likely gram negative with possible mucous plugging on left Possible seizure, post ictal Metabolic encephalopathy Acute hypercarbic respiratory failure, ICU admit, on BIPAP NSTEMI, 2/2 demand likely Afib RVR Acute diastolic CHF History of Present Illness History of Present Illness Mr. Hill, is a 72 year old male [facility] resident w/ PMHx severe cognitive deficits who was admitted after a seizure with prolonged unresponsiveness. Found with large leukocytosis, lactic acid elevation, troponin elevation with rapid breathing, admitted to ICU on BIPAP with heparin gtt and sepsis treatment. His niece notes he has the affect and mentation of a 10 year old or younger. He c/o lower back pain to me and is asking for food and water. Less alert than last night. Required BIPAP overnight, more agitated Plan: Can advance diet a bit Cont antibiotics BIPAP prn diuresing did not help, likely mucous plugging and pneumonia, will f/u ID recs and pulm recs Vitals Vitals Vital Signs Date Time Temp Pulse Resp B/P (MAP) Pulse Ox O2 Delivery O2 Flow Rate FiO2 06/17/18 09:00 97 52 104/53 (70) 93 BiPAP/CPAP 06/17/18 07:34 3.5 06/17/18 07:00 97.8 97.8 Physical Exam Physical Exam GENERAL: Alert, awake, mumbles, does not follow commands. HEENT: Normocephalic, atraumatic, anicteric. No thrush. Oral mucosa moist. NECK: Supple. No JVD. LUNGS: Decreased breath sounds at bases, otherwise clear. No wheezing. CARDIOVASCULAR: S1, S2, tachycardia. No murmurs. ABDOMEN: Soft, nontender, nondistended, no rebound, no guarding. GENITOURINARY: Shanks in place. EXTREMITIES: No edema, no cyanosis. DERM: Multiple skin breakdown over the toes, dry. No evidence of secondary bacterial infection, onychomycosis. NEUROLOGIC: Alert, awake, moves all 4 extremities. PSYCHIATRIC: Unable to obtain. Awake, alert. General: mild distress, Other (not following commands, awakens and holds my hand) Lungs: Other (decrease bs) Abdomen: Normal bowel sounds, Soft Extremities: No edema, Normal pulses Skin: No breakdown, Other (poor feet and nail care, right) Labs LABS Laboratory Tests Test 06/17/18 05:01 06/17/18 08:45 White Blood Count 13.6 x10^3/uL (4.0-11.0) Red Blood Count 3.71 x10^6/uL (4.30-5.70) Hemoglobin 11.6 g/dL (13.0-17.5) Hematocrit 35.3 % (39.0-53.0) Mean Corpuscular Volume 95 fL (79-100) Mean Corpuscular Hemoglobin 31 pg (25-35) Mean Corpuscular Hemoglobin Concent 33 g/dL (31-37) Red Cell Distribution Width 15.2 % (11.5-14.5) Platelet Count 163 x10^3/uL (140-400) Heparin Anti-Xa Act, Unfractionated 0.20 IU/mL (0.30-0.70) Sodium Level 145 mmol/L (136-145) Potassium Level 4.3 mmol/L (3.5-5.1) Chloride Level 111 mmol/L (98-107) Carbon Dioxide Level 20 mmol/L (21-32) Anion Gap 14 (6-14) Blood Urea Nitrogen 50 mg/dL (8-26) Creatinine 1.8 mg/dL (0.7-1.3) Estimated GFR (Cockcroft-Gault) 37.1 Glucose Level 133 mg/dL (70-99) Calcium Level 8.2 mg/dL (8.5-10.1) Phosphorus Level 4.0 mg/dL (2.6-4.7) Magnesium Level 1.9 mg/dL (1.8-2.4) O2 Saturation 83 % (92-99) Arterial Blood pH 7.35 (7.35-7.45) Arterial Blood pCO2 at Patient Temp 33 mmHg (35-46) Arterial Blood pO2 at Patient Temp 51 mmHg (65-108) Arterial Blood HCO3 18 mmol/L (21-28) Arterial Blood Base Excess -7 mmol/L (-3-3) FiO2 100 Assessment and Plan Assessmemt and Plan Problems Medical Problems: (1) Acute respiratory distress Status: Acute (2) Adrenal insufficiency Status: Acute (3) Altered level of consciousness Status: Acute (4) Atrial fibrillation with RVR Status: Acute (5) HCAP (healthcare-associated pneumonia) Status: Acute (6) New onset seizure Status: Acute (7) Renal insufficiency Status: Acute (8) Sepsis Status: Acute Comment Review of Relevant I have reviewed the following items tricia (where applicable) has been applied. Labs Laboratory Tests Test 06/15/18 14:22 06/15/18 23:00 06/16/18 05:00 06/16/18 06:00 Lactic Acid Level 2.9 mmol/L (0.4-2.0) 2.4 mmol/L (0.4-2.0) Troponin I Quantitative 1.515 ng/mL (0.000-0.055) 0.589 ng/mL (0.000-0.055) Heparin Anti-Xa Act, Unfractionated 0.54 IU/mL (0.30-0.70) 0.38 IU/mL (0.30-0.70) White Blood Count 20.0 x10^3/uL (4.0-11.0) Red Blood Count 4.04 x10^6/uL (4.30-5.70) Hemoglobin 12.4 g/dL (13.0-17.5) Hematocrit 38.2 % (39.0-53.0) Mean Corpuscular Volume 95 fL (79-100) Mean Corpuscular Hemoglobin 31 pg (25-35) Mean Corpuscular Hemoglobin Concent 33 g/dL (31-37) Red Cell Distribution Width 14.7 % (11.5-14.5) Platelet Count 172 x10^3/uL (140-400) Neutrophils (%) (Auto) 90 % (31-73) Lymphocytes (%) (Auto) 6 % (24-48) Monocytes (%) (Auto) 4 % (0-9) Eosinophils (%) (Auto) 0 % (0-3) Basophils (%) (Auto) 0 % (0-3) Neutrophils # (Auto) 18.0 x10^3uL (1.8-7.7) Lymphocytes # (Auto) 1.2 x10^3/uL (1.0-4.8) Monocytes # (Auto) 0.9 x10^3/uL (0.0-1.1) Eosinophils # (Auto) 0.0 x10^3/uL (0.0-0.7) Basophils # (Auto) 0.0 x10^3/uL (0.0-0.2) Segmented Neutrophils % 83 % (35-66) Band Neutrophils % 8 % (0-9) Lymphocytes % 4 % (24-48) Monocytes % 5 % (0-10) Platelet Estimate Adequate (ADEQUATE) Anisocytosis Slight Nasal Screen MRSA (PCR) Negative (Negative) Sodium Level 142 mmol/L (136-145) Potassium Level 3.5 mmol/L (3.5-5.1) Chloride Level 107 mmol/L (98-107) Carbon Dioxide Level 20 mmol/L (21-32) Anion Gap 15 (6-14) Blood Urea Nitrogen 24 mg/dL (8-26) Creatinine 1.4 mg/dL (0.7-1.3) Estimated GFR (Cockcroft-Gault) 49.5 BUN/Creatinine Ratio 17 (6-20) Glucose Level 230 mg/dL (70-99) Calcium Level 8.1 mg/dL (8.5-10.1) Total Bilirubin 1.0 mg/dL (0.2-1.0) Aspartate Amino Transf (AST/SGOT) 26 U/L (15-37) Alanine Aminotransferase (ALT/SGPT) 14 U/L (16-63) Alkaline Phosphatase 56 U/L (46-116) Total Protein 5.1 g/dL (6.4-8.2) Albumin 2.6 g/dL (3.4-5.0) Albumin/Globulin Ratio 1.0 (1.0-1.7) Procalcitonin 6.28 ng/mL (0.00-0.10) Test 06/17/18 05:01 06/17/18 08:45 White Blood Count 13.6 x10^3/uL (4.0-11.0) Red Blood Count 3.71 x10^6/uL (4.30-5.70) Hemoglobin 11.6 g/dL (13.0-17.5) Hematocrit 35.3 % (39.0-53.0) Mean Corpuscular Volume 95 fL (79-100) Mean Corpuscular Hemoglobin 31 pg (25-35) Mean Corpuscular Hemoglobin Concent 33 g/dL (31-37) Red Cell Distribution Width 15.2 % (11.5-14.5) Platelet Count 163 x10^3/uL (140-400) Heparin Anti-Xa Act, Unfractionated 0.20 IU/mL (0.30-0.70) Sodium Level 145 mmol/L (136-145) Potassium Level 4.3 mmol/L (3.5-5.1) Chloride Level 111 mmol/L (98-107) Carbon Dioxide Level 20 mmol/L (21-32) Anion Gap 14 (6-14) Blood Urea Nitrogen 50 mg/dL (8-26) Creatinine 1.8 mg/dL (0.7-1.3) Estimated GFR (Cockcroft-Gault) 37.1 Glucose Level 133 mg/dL (70-99) Calcium Level 8.2 mg/dL (8.5-10.1) Phosphorus Level 4.0 mg/dL (2.6-4.7) Magnesium Level 1.9 mg/dL (1.8-2.4) O2 Saturation 83 % (92-99) Arterial Blood pH 7.35 (7.35-7.45) Arterial Blood pCO2 at Patient Temp 33 mmHg (35-46) Arterial Blood pO2 at Patient Temp 51 mmHg (65-108) Arterial Blood HCO3 18 mmol/L (21-28) Arterial Blood Base Excess -7 mmol/L (-3-3) FiO2 100 Laboratory Tests Test 06/17/18 05:01 06/17/18 08:45 White Blood Count 13.6 x10^3/uL (4.0-11.0) Red Blood Count 3.71 x10^6/uL (4.30-5.70) Hemoglobin 11.6 g/dL (13.0-17.5) Hematocrit 35.3 % (39.0-53.0) Mean Corpuscular Volume 95 fL (79-100) Mean Corpuscular Hemoglobin 31 pg (25-35) Mean Corpuscular Hemoglobin Concent 33 g/dL (31-37) Red Cell Distribution Width 15.2 % (11.5-14.5) Platelet Count 163 x10^3/uL (140-400) Heparin Anti-Xa Act, Unfractionated 0.20 IU/mL (0.30-0.70) Sodium Level 145 mmol/L (136-145) Potassium Level 4.3 mmol/L (3.5-5.1) Chloride Level 111 mmol/L (98-107) Carbon Dioxide Level 20 mmol/L (21-32) Anion Gap 14 (6-14) Blood Urea Nitrogen 50 mg/dL (8-26) Creatinine 1.8 mg/dL (0.7-1.3) Estimated GFR (Cockcroft-Gault) 37.1 Glucose Level 133 mg/dL (70-99) Calcium Level 8.2 mg/dL (8.5-10.1) Phosphorus Level 4.0 mg/dL (2.6-4.7) Magnesium Level 1.9 mg/dL (1.8-2.4) O2 Saturation 83 % (92-99) Arterial Blood pH 7.35 (7.35-7.45) Arterial Blood pCO2 at Patient Temp 33 mmHg (35-46) Arterial Blood pO2 at Patient Temp 51 mmHg (65-108) Arterial Blood HCO3 18 mmol/L (21-28) Arterial Blood Base Excess -7 mmol/L (-3-3) FiO2 100 Microbiology 06/15/18 Blood Culture - Preliminary, Resulted NO GROWTH AFTER 1 DAY Medications Current Medications Sodium Chloride 1,000 ml @ 1,000 mls/hr Q1H IV Last administered on 06/15/18 09:42; Start 06/15/18 at 09:42; Stop 06/15/18 at 10:41; Status DC Sodium Chloride 2,270 ml @ 378.333 mls/hr 1X ONCE IV Last administered on at 10:26; Start 06/15/18 at 09:45; Stop 06/15/18 at 15:44; Status DC Acetaminophen (Tylenol Supp) 650 mg 1X ONCE DE Last administered on 06/15/18at 10:17; Start 06/15/18 at 09:45; Stop 06/15/18 at 09:54; Status DC Cefepime HCl (Maxipime) 1 gm 1X ONCE IVP Last administered on 06/15/18at 10:16 ; Start 06/15/18 at 10:00; Stop 06/15/18 at 10:04; Status DC Vancomycin HCl 250 ml @ 250 mls/hr 1X ONCE IV ; Start 06/15/18 at 10:00; Stop 06/15/18 at 10:59; Status UNV Vancomycin HCl 2 gm/Sodium Chloride 500 ml @ 250 mls/hr ONCE ONCE IV Last administered on 06/15/18at 10:27; Start 06/15/18 at 10:30; Stop 06/15/18 at 12:29 ; Status DC Methylprednisolone Sodium Succinate (SOLU-Medrol 125MG VIAL) 250 mg 1X ONCE IV Last administered on 06/15/18at 09:57; Start 06/15/18 at 10:00; Stop 06/15/18 at 10:01; Status DC Albuterol/ Ipratropium (Duoneb) 3 ml 1X ONCE NEB Last administered on at 10:50; Start 06/15/18 at 10:00; Stop 06/15/18 at 10:01; Status DC Methylprednisolone Sodium Succinate (SOLU-Medrol 125MG VIAL) 125 mg STK-MED ONCE .ROUTE ; Start 06/15/18 at 09:54; Stop 06/15/18 at 09:55; Status DC Diltiazem HCl (Cardizem Iv Push) 10 mg 1X ONCE IVP Last administered on at 11:09; Start 06/15/18 at 10:15; Stop 06/15/18 at 10:16; Status DC Lorazepam (Ativan) 1 mg 1X ONCE IV Last administered on 06/15/18at 10:37; Start 06/15/18 at 10:45; Stop 06/15/18 at 10:46; Status DC Sodium Chloride 1,000 ml @ 150 mls/hr Q6H40M IV Last administered on at 09:04; Start 06/15/18 at 11:58; Stop 06/16/18 at 11:57; Status DC Diltiazem HCl 125 mg/Dextrose 125 ml @ 5 mls/hr CONT PRN IV SEE I/O RECORD Last administered on 06/16/18at 09:04; Start 06/15/18 at 12:15 Baclofen (Lioresal) 5 mg TID PO Last administered on 06/16/18at 13:27; Start at 14:00 Vitamin D (Vitamin D3) 2,000 unit DAILY PO Last administered on 06/16/18at 09:05 ; Start 06/15/18 at 15:00 Famotidine (Pepcid) 20 mg QHS PO ; Start 06/15/18 at 15:00 Al Hydroxide/Mg Hydroxide (Mylanta Plus Xs) 30 ml PRN Q12HRS PRN PO HEARTBURN / GAS; Start 06/15/18 at 21:00 Magnesium Hydroxide (Milk Of Magnesia) 400 mg PRN QHS PRN PO CONSTIPATION; Start 06/15/18 at 13:45 Nitroglycerin (Nitrostat) 0.4 mg PRN Q5MIN PRN SL CHEST PAIN; Start 06/15/18 at 13:45 Tramadol HCl (Ultram) 50 mg PRN Q6HRS PRN PO PAIN Last administered on 16:44; Start 06/15/18 at 13:45 Duloxetine HCl (Cymbalta) 60 mg DAILY PO Last administered on 06/16/18 09:05; Start 06/15/18 at 15:00 Lidocaine (Lidoderm) 1 patch DAILY TD Last administered on 06/17/18 08:10; Start 06/15/18 at 15:00 Ondansetron HCl (Zofran Odt) 4 mg PRN Q8HRS PRN PO NAUSEA/VOMITING; Start 06/15 at 14:15 Polyethylene Glycol (miraLAX PACKET) 17 gm DAILY PO Last administered on 09:05; Start 06/15/18 at 15:00 Miscellaneous (Lidoderm Patch Removal) 1 ea QHS MC Last administered on 20:05; Start 06/15/18 at 21:00 Vancomycin HCl (Vanco Per Pharmacy) 1 each PRN DAILY PRN MC SEE COMMENTS Last administered on 06/15/18at 15:53; Start 06/15/18 at 15:30; Stop 06/17/18 at 08:28 ; Status DC Cefepime HCl (Maxipime) 2 gm Q8HRS IVP Last administered on 06/15/18at 15:50; Start 06/15/18 at 15:30; Stop 06/15/18 at 18:43; Status DC Vancomycin HCl 1.5 gm/Sodium Chloride 500 ml @ 250 mls/hr Q24H IV Last administered on 06/16/18at 11:29; Start 06/16/18 at 11:00; Stop 06/17/18 at 08:27 ; Status DC Vancomycin HCl (Vancomycin Trough Level) 1 each 1X ONCE MC ; Start 06/17/18 at 10:30; Stop 06/17/18 at 10:30; Status DC Albuterol/ Ipratropium (Duoneb) 3 ml RTQID NEB Last administered on 06/17/18at 08:18; Start 06/15/18 at 20:00 Prednisone (Prednisone) 20 mg DAILY PO Last administered on 06/16/18at 09:05; Start 06/16/18 at 09:00 Heparin Sodium (Porcine) (Heparin Sodium) 4,000 unit 1X ONCE IV Last administered on 06/15/18at 16:55; Start 06/15/18 at 16:45; Stop 06/15/18 at 16:51 ; Status DC Heparin Sodium/ Dextrose 500 ml @ 0 mls/hr CONT PRN IV SEE I/O RECORD Last administered on 06/16/18at 11:30; Start 06/15/18 at 16:45 Heparin Sodium (Porcine) (Heparin Sodium) 2,100 unit PRN Q6HRS PRN IV FOR UFH LEVEL LESS THAN 0.2; Start 06/15/18 at 16:45 Info (Anti-Coagulation Monitoring By Pharmacy) 1 each PRN DAILY PRN MC SEE COMMENTS; Start 06/15/18 at 17:00 Cefepime HCl (Maxipime) 1 gm Q8HRS IVP Last administered on 06/17/18at 05:24; Start 06/15/18 at 22:00 Doxycycline Hyclate (Vibra-Tab) 100 mg BID PO Last administered on 06/16/18at 09 :10; Start 06/16/18 at 09:00 Linezolid/Dextrose 300 ml @ 300 mls/hr Q12HR IV ; Start 06/16/18 at 10:00; Stop 06/16/18 at 10:00; Status DC Metoprolol Tartrate (Lopressor) 50 mg BID PO Last administered on 06/16/18at 11: 28; Start 06/16/18 at 12:00 Lorazepam (Ativan) 2 mg PRN Q4HRS PRN IV ANXIETY / AGITATION Last administered on 06/17/18at 00:01; Start 06/16/18 at 19:45 Lorazepam (Ativan) 1 mg 1X ONCE IV Last administered on 06/16/18at 22:18; Start 06/16/18 at 22:00; Stop 06/17/18 at 01:30; Status DC Dexmedetomidine HCl 200 mcg/ Sodium Chloride 50 ml @ 0 mls/hr CONT PRN IV PER PROTOCOL Last administered on 06/17/18at 07:19; Start 06/16/18 at 23:00 Sodium Chloride 500 ml @ 500 mls/hr 1X PRN PRN IV SEE COMMENTS; Start at 01:45 Atropine Sulfate (ATROPINE 0.5mg SYRINGE) 0.5 mg PRN Q5MIN PRN IV SEE COMMENTS ; Start 06/17/18 at 01:45 Furosemide (Lasix) 60 mg 1X ONCE IVP Last administered on 06/17/18at 08:08; Start 06/17/18 at 08:00; Stop 06/17/18 at 08:01; Status DC Sodium Bicarbonate (Sodium Bicarb Adult 8.4% Syr) 100 meq 1X ONCE IV Last administered on 06/17/18at 10:00; Start 06/17/18 at 10:00; Stop 06/17/18 at 10:01 ; Status DC Sodium Bicarbonate (Sodium Bicarb Adult 8.4% Syr) 50 meq STK-MED ONCE .ROUTE ; Start 06/17/18 at 09:56; Stop 06/17/18 at 09:57; Status DC Active Scripts Active Meloxicam 7.5 Mg Tablet 7.5 Mg PO DAILY Zofran (Ondansetron Hcl) 4 Mg Tablet 4 Mg PO PRN TID PRN nausea/vomiting Reported Tramadol Hcl 50 Mg Tablet 50 Mg PO Q6HRS PRN NITROGLYCERIN SubLingual (Nitroglycerin) 0.4 Mg Tab.subl 0.4 Mg SL PRN Q5MIN PRN Milk Of Magnesia (Magnesium Hydroxide) 400 Mg/5 Ml Oral.susp 400 Mg PO PRN QHS PRN [place] Greaseless Cream (Methyl Salicylate/Menthol) 57 Gm Cream..g. 57 Gm TP PRN Q1HR PRN Vitamin D3 (Cholecalciferol (Vitamin D3)) 1,000 Unit Tablet 2,000 Unit PO DAILY Vitamin B-12 (Cyanocobalamin (Vitamin B-12)) 1,000 Mcg Tablet 1 Tab PO DAILY Trazodone Hcl 50 Mg Tablet 50 Mg PO HS Miralax (Polyethylene Glycol 3350) 17 Gm Powd.pack 1 Pkt PO DAILY Maalox Maximum Strength Susp (Mag Hydrox/Al Hydrox/Simeth) 355 Ml Oral.susp 355 Ml PO Q12HR Cortef (Hydrocortisone) 20 Mg Tablet 20 Mg PO AFTRNOON PRN Cortef (Hydrocortisone) 10 Mg Tablet 15 Mg PO DAILY Pepcid (Famotidine) 20 Mg Tablet 20 Mg PO BID Cymbalta (Duloxetine Hcl) 60 Mg Capsule.dr 1 Cap PO DAILY Baclofen 10 Mg Tablet 5 Mg PO TID Lidocaine 1 Each Adh..patch 1 Each TP DAILY Vitals/I & O Vital Sign - Last 24 Hours 06/16/18 06/16/18 06/16/18 06/16/18 11:00 11:28 11:31 12:00 Pulse 140 130 Resp 30 30 B/P (MAP) 98/64 (75) 101/60 Pulse Ox 96 96 O2 Delivery Nasal Cannula Nasal Cannula Nasal Cannula O2 Flow Rate 2.0 2.0 2.0 06/16/18 06/16/18 06/16/18 06/16/18 12:00 13:00 13:07 14:00 Pulse 105 89 89 Resp 30 24 28 B/P (MAP) 93/60 (71) 86/61 (69) 98/64 (75) Pulse Ox 96 97 93 97 O2 Delivery Nasal Cannula Nasal Cannula Nasal Cannula Nasal Cannula O2 Flow Rate 2.0 2.0 3.0 2.0 06/16/18 06/16/18 06/16/18 06/16/18 15:00 16:00 16:04 16:44 Temp 98.4 98.4 Pulse 90 91 Resp 24 28 30 B/P (MAP) 102/60 (74) 102/66 (78) Pulse Ox 95 95 95 O2 Delivery Nasal Cannula Nasal Cannula Nasal Cannula Nasal Cannula O2 Flow Rate 2.0 2.0 2.0 2.0 06/16/18 06/16/18 06/16/18 06/16/18 16:45 17:00 17:45 18:00 Pulse 100 96 Resp 28 30 28 B/P (MAP) 100/64 (76) 108/73 (85) Pulse Ox 94 94 94 94 O2 Delivery Nasal Cannula Nasal Cannula Nasal Cannula Nasal Cannula O2 Flow Rate 3.0 2.0 2.0 2.0 06/16/18 06/16/18 06/16/18 06/16/18 19:00 19:29 19:43 19:50 Temp 97.0 97.0 Pulse 90 Resp 24 B/P (MAP) 112/72 (85) Pulse Ox 96 94 O2 Delivery Nasal Cannula Nasal Cannula BiPAP/CPAP O2 Flow Rate 3.5 3.5 3.5 06/16/18 06/16/18 06/16/18 06/16/18 20:00 20:24 21:05 21:10 Temp 97.6 98.3 97.6 98.3 Pulse 76 76 103 Resp 46 56 B/P (MAP) 117/65 (82) 117/65 110/69 (83) Pulse Ox 99 96 97 O2 Delivery BiPAP/CPAP BiPAP/CPAP BiPAP/CPAP 06/16/18 06/16/18 06/16/18 06/17/18 22:00 23:00 23:59 00:01 Temp 98.0 98.2 98.0 98.0 98.2 98.0 Pulse 107 100 80 Resp 60 54 50 B/P (MAP) 158/97 (117) 117/71 (86) 87/50 (62) Pulse Ox 93 96 99 O2 Delivery BiPAP/CPAP BiPAP/CPAP Bi-pap BiPAP/CPAP 06/17/18 06/17/18 06/17/18 06/17/18 00:01 00:15 01:00 02:00 Temp 98.2 98.2 Pulse 91 Resp 60 B/P (MAP) 131/69 (89) Pulse Ox 99 95 91 O2 Delivery BiPAP/CPAP BiPAP/CPAP BiPAP/CPAP O2 Flow Rate 3.5 06/17/18 06/17/18 06/17/18 06/17/18 02:00 03:00 03:56 03:57 Temp 98.8 98.0 98.8 98.0 Pulse 93 80 Resp 56 55 B/P (MAP) 142/92 (109) 91/55 (67) Pulse Ox 97 92 O2 Delivery BiPAP/CPAP BiPAP/CPAP Bi-pap O2 Flow Rate 3.5 06/17/18 06/17/18 06/17/18 06/17/18 04:00 05:00 05:15 06:09 Temp 97.9 97.7 97.7 97.9 97.7 97.7 Pulse 87 78 72 Resp 49 47 49 B/P (MAP) 102/60 (74) 106/60 (75) 87/57 (67) Pulse Ox 98 97 98 94 O2 Delivery BiPAP/CPAP BiPAP/CPAP BiPAP/CPAP BiPAP/CPAP 06/17/18 06/17/18 06/17/18 06/17/18 07:00 07:29 07:34 08:00 Temp 97.8 97.8 Pulse 81 87 Resp 48 54 B/P (MAP) 90/59 (69) 96/64 (75) Pulse Ox 93 93 O2 Delivery BiPAP/CPAP Bi-pap BiPAP/CPAP O2 Flow Rate 3.5 06/17/18 06/17/18 08:18 09:00 Pulse 97 Resp 52 B/P (MAP) 104/53 (70) Pulse Ox 98 93 O2 Delivery BiPAP/CPAP BiPAP/CPAP Intake and Output 06/16/18 06/16/18 06/17/18 15:00 23:00 07:00 Intake Total 1040 ml 1407 ml 0 ml Output Total 475 ml 145 ml 65 ml Balance 565 ml 1262 ml -65 ml SKYLAR GUZMÁN MD Jun 17, 2018 10:43
[2018-06-17] MEDS: IV NORMAL SALINE 500ML BAG 500 ML IV PRN ×2 (11:24→22:04)
[2018-06-17] MEDS: HEPARIN 25,000UTS/500ML PREMIX 500 ML IV PRN (11:25)
--- NOTE | 2018-06-17 12:43 | PDOC ---
A[facility]AN MARINELLI [facility] HEALTH AIDE 06/17/18 1242: CARDIO Progress Notes Date and Time Date of Service 06/17/2018 Time of Evaluation 1210 Subjective Subjective: Other (O2 mask on tachypneic. unabble to communicate due to the latter but no pain but SOA. 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 06/17/18 10:00 15.0 Weight Weight [ ] Input and Output Intake and Output Intake and Output 06/17/18 06:59 Intake Total 2447 ml Output Total 685 ml Balance 1762 ml Intake Oral 720 ml IV Total 1727 ml Output Urine Total 685 ml Laboratory Labs Laboratory Tests Test 06/17/18 05:01 06/17/18 08:45 White Blood Count 13.6 x10^3/uL (4.0-11.0) Red Blood Count 3.71 x10^6/uL (4.30-5.70) Hemoglobin 11.6 g/dL (13.0-17.5) Hematocrit 35.3 % (39.0-53.0) Mean Corpuscular Volume 95 fL (79-100) Mean Corpuscular Hemoglobin 31 pg (25-35) Mean Corpuscular Hemoglobin Concent 33 g/dL (31-37) Red Cell Distribution Width 15.2 % (11.5-14.5) Platelet Count 163 x10^3/uL (140-400) Heparin Anti-Xa Act, Unfractionated 0.20 IU/mL (0.30-0.70) Sodium Level 145 mmol/L (136-145) Potassium Level 4.3 mmol/L (3.5-5.1) Chloride Level 111 mmol/L (98-107) Carbon Dioxide Level 20 mmol/L (21-32) Anion Gap 14 (6-14) Blood Urea Nitrogen 50 mg/dL (8-26) Creatinine 1.8 mg/dL (0.7-1.3) Estimated GFR (Cockcroft-Gault) 37.1 Glucose Level 133 mg/dL (70-99) Calcium Level 8.2 mg/dL (8.5-10.1) Phosphorus Level 4.0 mg/dL (2.6-4.7) Magnesium Level 1.9 mg/dL (1.8-2.4) O2 Saturation 83 % (92-99) Arterial Blood pH 7.35 (7.35-7.45) Arterial Blood pCO2 at Patient Temp 33 mmHg (35-46) Arterial Blood pO2 at Patient Temp 51 mmHg (65-108) Arterial Blood HCO3 18 mmol/L (21-28) Arterial Blood Base Excess -7 mmol/L (-3-3) FiO2 100 Microbiology Micro Microbiology 06/15/18 Blood Culture - Preliminary, Resulted NO GROWTH AFTER 2 DAYS Physical Exam HEENT: Neck Supple W Full Motion Chest: Symmetric LUNGS: Other (coarse; tachypneic) Heart: irregularly irregular (AFIB RVR) Abdomen: Soft N/T Extremities: No Edema Neurology: alert, follow commands Assessment Assessment 1. Acute metabolic encephalopathy: neurology following 2. Acute respiratory failure with aspiration: Pulmonary following. was being weaned off precedex 3. Afib with RVR: back on AFIB RVR from SR mainly due to pulmonary issues 4. Sepsis syndrome 5. Elevated troponin, likely type 2 NSTEMI 6. Moderate 7. Cardiomyopathy: EF 40-45%. multifactorial as above 8. ISIDRO: possibly from lasix. Recommendations 1. Digoxin x1. NPO currently, change to lopressor IV. 2. ASA for now for stroke prevention. Unable to proceed with bronchoscopy at this time 3. Future ischemic workup possibly as an outpt once pulmonary issues are much better. 4. Will follow along TRAN COREY MD 06/17/18 1124: CARDIO Progress Notes Plan Plan Pt. seen and examined. Agree with above POISER note. Await pulmonary work up. AIDAN MARINELLI [facility] HEALTH AIDE Jun 17, 2018 12:42 TRAN COREY MD Jun 17, 2018 17:56
[2018-06-17] MEDS ORDERED: DIGOXIN IV 500 MCG/2 ML AMPUL. IV ONE (12:45)
--- NOTE | 2018-06-17 12:45 | NUR ---
spoke with lucius paredes. Updated her on: pt requiring 100% oxygen on outreach associate or bipap. pt continues with rr in the 50's and 60's. results of am chest xray shows left lung "silvia out". pt received 60 mg of lasix iv. pt had received 2 amps na bicarb this am after abgs per dr dangelo. reattempting to orally/nasally suction pt to relieve ?plug in left lung. pt being kept npo due to increase in respirations and high risk of aspiration. niece aware that unable to do a bronchoscopy due to pt being a dnr/dni and would not be able to accomplish unless we had to place on ventilator. niece agreed that he would want to just keep him comfortable. Had charge nurse, Jazmine king also talk to lucius paredes, and verify the pts wish and the nieces. call placed to dr resendez.
[2018-06-17] MEDS: METOPROLOL TARTRATE 5 MG/5 ML VIAL. IVP SCH ×2 (12:59→17:51)
[2018-06-17] MEDS: ASPIRIN RECTAL 300 MG SUPP. PR SCH (12:59)
--- NOTE | 2018-06-17 13:05 | NUR ---
spoke with dr resendez. conveyed wishes of pt and niece. dr resendez to write orders.
[2018-06-17] MEDS: MORPHINE SULFATE 4 MG/ML VIAL. IV PRN ×4 (13:13→22:26)
--- NOTE | 2018-06-17 13:20 | NUR ---
pt given iv lopressor, iv digoxin, rectal suppository of aspirin and morphine 4 mg iv. RT Alda was able to obtain 200-400 cc of brown colored drainage while nts pt. pt with little to no gag reflex and pt unable to cough. pt now placed on bipap. rr continues in the 50's, but appears more relaxed and calm.
[2018-06-17] MEDS: DOXYCYCLINE HYCLATE 100 MG in IV DEXTROSE 5% 100ML 100 ML IV SCH ×2 (14:18→21:58)
--- NOTE | 2018-06-17 17:14 | NUR ---
sade reynaga and her , ruth, at pts bedside. Sade stated "I just talked to him and told him that it was alright to go to his mom and dad in [facility]". Pt only has 2 sisters that are alive and one they dont talk to and the other one is in a half-way/rehab. Sade again stated " he would want to be left alone." "he was at the point where he couldn't take care of himself in the assisted living and needs to go somewhere else to live".
[2018-06-17] MEDS: FAMOTIDINE 20 MG TABLET. PO SCH (20:31)
[2018-06-17] MEDS: PATCH REMOVAL. MC SCH (21:00)
[2018-06-18] VITALS (39 sets, daily range): BP systolic 55–136; BP diastolic 27–90
[2018-06-18] MEDS: MORPHINE SULFATE 4 MG/ML VIAL. IV PRN ×6 (03:11→16:03)
[2018-06-18] MEDS: HEPARIN 25,000UTS/500ML PREMIX 500 ML IV PRN (05:16)
[2018-06-18 05:50] LABS: HEMATOCRIT 27.1 % (39.0-53.0); HEMOGLOBIN 8.8 g/dL (13.0-17.5); RED BLOOD COUNT 2.82 x10^6/uL (4.30-5.70); WHITE BLOOD COUNT 9.2 x10^3/uL (4.0-11.0)
[2018-06-18 05:52] LABS: CALCIUM 8.1 mg/dL (8.5-10.1); CREATININE 2.2 mg/dL (0.7-1.3); GFR 29.4; POTASSIUM 3.9 mmol/L (3.5-5.1)
[2018-06-18] MEDS: DEXMEDETOMIDINE 200 MCG in IV NORMAL SALINE 50ML 48 ML IV PRN ×2 (05:56→08:12)
[2018-06-18] MEDS: CEFEPIME HCL IV Push 1 GM VIAL. IVP SCH (05:57)
[2018-06-18] MEDS: METOPROLOL TARTRATE 5 MG/5 ML VIAL. IVP SCH ×4 (06:00→17:46)
--- NOTE | 2018-06-18 07:27 | PDOC ---
Infectious Disease Note Subjective: Subjective Pt remains the same with resp failure recieved ativan and morphine this am on bipap UO decreased not on pressors Not responding to diuresis no fevers D/W Nursing Vital Signs: Vital Signs Vital Signs Date Time Temp Pulse Resp B/P (MAP) Pulse Ox O2 Delivery O2 Flow Rate FiO2 06/18/18 06:24 41 100 BiPAP/CPAP 15.0 06/18/18 06:00 89 85/49 (61) 06/18/18 04:00 98.7 98.7 Physical Exam: PHYSICAL EXAM GENERAL: ON bipap, HEENT: anicteric. NECK: Supple. LUNGS coarse bs bilaterally CARDIOVASCULAR: S1, S2, tachycardia. No murmurs. ABDOMEN: Soft, nontender, nondistended, BS+ GENITOURINARY: Shanks in place. EXTREMITIES: No edema, no cyanosis. DERM: Multiple skin breakdown over the toes, dry. No evidence of secondary bacterial infection, onychomycosis. NEUROLOGIC: ON bipap, not responsive Medications: Inpatient Meds: Current Medications Medications (Trade) Dose Ordered Sig/Diaz Start Time Stop Time Status Last Admin Dose Admin Acetaminophen (Tylenol Supp) 650 mg 1X ONCE 06/15/18 09:45 06/15/18 09:54 DC 06/15/18 10:17 650 MG Al Hydroxide/Mg Hydroxide (Mylanta Plus Xs) 30 ml PRN Q12HRS PRN 06/15/18 21:00 Albuterol/ Ipratropium (Duoneb) 3 ml RTQID 06/15/18 20:00 06/17/18 19:56 3 ML Aspirin (Aspirin) 150 mg DAILY 06/17/18 12:45 06/17/18 12:59 150 MG Atropine Sulfate (ATROPINE 0.5mg SYRINGE) 0.5 mg PRN Q5MIN PRN 06/17/18 01:45 Baclofen (Lioresal) 5 mg TID 06/15/18 14:00 06/17/18 14:33 DC 06/16/18 13:27 5 MG Cefepime HCl (Maxipime) 1 gm Q8HRS 06/15/18 22:00 06/18/18 05:57 1 GM Dexmedetomidine HCl 200 mcg/ Sodium Chloride 50 ml @ 0 mls/hr CONT PRN 06/16/18 23:00 06/18/18 05:56 4.28 MLS/HR Digoxin (Lanoxin) 500 mcg 1X ONCE 06/17/18 12:45 06/17/18 12:46 DC 06/17/18 12:58 500 MCG Diltiazem HCl (Cardizem Iv Push) 10 mg 1X ONCE 06/15/18 10:15 06/15/18 10:16 DC 06/15/18 11:09 10 MG Diltiazem HCl 125 mg/Dextrose 125 ml @ 5 mls/hr CONT PRN 06/15/18 12:15 06/16/18 09:04 15 MLS/HR Doxycycline Hyclate (Vibra-Tab) 100 mg BID 06/16/18 09:00 06/17/18 13:20 DC 06/16/18 09:10 100 MG Doxycycline Hyclate 100 mg/ Dextrose 100 ml @ 50 mls/hr Q12HR 06/17/18 14:00 06/17/18 21:58 50 MLS/HR Duloxetine HCl (Cymbalta) 60 mg DAILY 06/15/18 15:00 06/17/18 14:33 DC 06/16/18 09:05 60 MG Famotidine (Pepcid) 20 mg QHS 06/15/18 15:00 Furosemide (Lasix) 60 mg 1X ONCE 06/17/18 08:00 06/17/18 08:01 DC 06/17/18 08:08 60 MG Heparin Sodium (Porcine) (Heparin Sodium) 2,100 unit PRN Q6HRS PRN 06/15/18 16:45 Heparin Sodium/ Dextrose 500 ml @ 0 mls/hr CONT PRN 06/15/18 16:45 06/18/18 05:16 27.2 MLS/HR Info (Anti-Coagulation Monitoring By Pharmacy) 1 each PRN DAILY PRN 06/15/18 17:00 Lidocaine (Lidoderm) 1 patch DAILY 06/15/18 15:00 06/17/18 08:10 1 PATCH Linezolid/Dextrose 300 ml @ 300 mls/hr Q12HR 06/17/18 21:00 06/17/18 21:59 300 MLS/HR Lorazepam (Ativan) 1 mg 1X ONCE 06/16/18 22:00 06/17/18 01:30 DC 06/16/18 22:18 1 MG Magnesium Hydroxide (Milk Of Magnesia) 400 mg PRN QHS PRN 06/15/18 13:45 Methylprednisolone Sodium Succinate (SOLU-Medrol 125MG VIAL) 125 mg STK-MED ONCE 06/15/18 09:54 06/15/18 09:55 DC Metoprolol Tartrate (Lopressor Vial) 5 mg Q6HRS 06/17/18 13:00 06/17/18 12:59 5 MG Metoprolol Tartrate (Lopressor) 50 mg BID 06/16/18 12:00 06/17/18 12:41 DC 06/16/18 11:28 50 MG Miscellaneous (Lidoderm Patch Removal) 1 ea QHS 06/15/18 21:00 06/17/18 21:00 1 EA Morphine Sulfate (Morphine Sulfate) 4 mg PRN Q2HR PRN 06/17/18 13:15 06/18/18 06:24 4 MG Nitroglycerin (Nitrostat) 0.4 mg PRN Q5MIN PRN 06/15/18 13:45 Ondansetron HCl (Zofran Odt) 4 mg PRN Q8HRS PRN 06/15/18 14:15 Polyethylene Glycol (miraLAX PACKET) 17 gm DAILY 06/15/18 15:00 06/17/18 14:33 DC 06/16/18 09:05 17 GM Prednisone (Prednisone) 20 mg DAILY 06/16/18 09:00 06/17/18 14:33 DC 06/16/18 09:05 20 MG Sodium Bicarbonate (Sodium Bicarb Adult 8.4% Syr) 50 meq STK-MED ONCE 06/17/18 09:56 06/17/18 09:57 DC Sodium Chloride 500 ml @ 500 mls/hr 1X PRN PRN 06/17/18 01:45 06/17/18 22:04 500 MLS/HR Tramadol HCl (Ultram) 50 mg PRN Q6HRS PRN 06/15/18 13:45 06/16/18 16:44 50 MG Vancomycin HCl (Vanco Per Pharmacy) 1 each PRN DAILY PRN 06/15/18 15:30 06/17/18 08:28 DC 06/15/18 15:53 1 EACH Vancomycin HCl (Vancomycin Trough Level) 1 each 1X ONCE 06/17/18 10:30 06/17/18 10:30 DC Vancomycin HCl 1.5 gm/Sodium Chloride 500 ml @ 250 mls/hr Q24H 06/16/18 11:00 06/17/18 08:27 DC 06/16/18 11:29 250 MLS/HR Vancomycin HCl 2 gm/Sodium Chloride 500 ml @ 250 mls/hr ONCE ONCE 06/15/18 10:30 06/15/18 12:29 DC 06/15/18 10:27 250 MLS/HR Vitamin D (Vitamin D3) 2,000 unit DAILY 06/15/18 15:00 06/17/18 14:33 DC 06/16/18 09:05 2,000 UNIT Labs: Lab Laboratory Tests Test 06/17/18 08:45 06/17/18 13:00 06/17/18 21:00 06/17/18 22:16 O2 Saturation 83 % (92-99) Arterial Blood pH 7.35 (7.35-7.45) Arterial Blood pCO2 at Patient Temp 33 mmHg (35-46) Arterial Blood pO2 at Patient Temp 51 mmHg (65-108) Arterial Blood HCO3 18 mmol/L (21-28) Arterial Blood Base Excess -7 mmol/L (-3-3) FiO2 100 Heparin Anti-Xa Act, Unfractionated 0.24 IU/mL (0.30-0.70) 0.42 IU/mL (0.30-0.70) Glucose (Fingerstick) 161 mg/dL (70-99) Test 06/18/18 05:15 White Blood Count 9.2 x10^3/uL (4.0-11.0) Red Blood Count 2.82 x10^6/uL (4.30-5.70) Hemoglobin 8.8 g/dL (13.0-17.5) Hematocrit 27.1 % (39.0-53.0) Mean Corpuscular Volume 96 fL (79-100) Mean Corpuscular Hemoglobin 31 pg (25-35) Mean Corpuscular Hemoglobin Concent 33 g/dL (31-37) Red Cell Distribution Width 15.0 % (11.5-14.5) Platelet Count 141 x10^3/uL (140-400) Heparin Anti-Xa Act, Unfractionated 0.34 IU/mL (0.30-0.70) Sodium Level 147 mmol/L (136-145) Potassium Level 3.9 mmol/L (3.5-5.1) Chloride Level 112 mmol/L (98-107) Carbon Dioxide Level 23 mmol/L (21-32) Anion Gap 12 (6-14) Blood Urea Nitrogen 82 mg/dL (8-26) Creatinine 2.2 mg/dL (0.7-1.3) Estimated GFR (Cockcroft-Gault) 29.4 Glucose Level 157 mg/dL (70-99) Calcium Level 8.1 mg/dL (8.5-10.1) Micro BC NEG Objective: Assessment: 1. Febrile illness, influenza screen negative, likely source respiratory. Resolved 2. Leukocytosis, also on steroids. improved 3. Altered mental status, questionable seizure activity. None are noticed at [facility]. 4. Acute resp failure, Pneumonia,suspected aspiration. now CHF, not improving 5. Elevated troponin with atrial fibrillation with rapid ventricular response. 6. History of Larimer's disease. 7. Hypertension. 8. Asthma. 9. Cognitive impairment. 10. long-term resident. 11. Acute kidney injury. 12. PENICILLIN AND ERYTHROMYCIN ALLERGY, questionable reaction. Plan: Plan of Care DC Cefepime,start merrem Off IV Vanc due to ISIDRO cont doxycycline and zyvox for now F/U C/S and Labs in am Prognosis poor d/w JULIEN RUANO MD Jun 18, 2018 07:27
--- NOTE | 2018-06-18 08:12 | RAD ---
Portable chest, 06/18/2018: HISTORY: Pulmonary infiltrates Comparison is made to yesterday's study. There are moderate patchy bilateral pulmonary infiltrates these have worsened slightly on the right. The left chest opacity has improved suggesting resolution of an atelectatic component since yesterday study. The pulmonary vascularity is poorly defined. No definite pleural fluid is seen. IMPRESSION: 1. The dense left chest opacity has improved since yesterday's study, probably representing a resolving mucous plug/atelectasis. 2. Moderate residual patchy left pulmonary infiltrate and worsening moderate right lung infiltrate. Electronically signed by: Julio C Duran MD (06/18/2018 8:09 AM) [facility]
[2018-06-18] MEDS: IPRATRPIUM/ALBUTEROL 0.5/2.5MG 3 ML NEBU. NEB SCH ×4 (08:18→20:06)
[2018-06-18] MEDS: NOREPINEPHRIN 8MG/250ML PREMIX 250 ML IV PRN ×2 (08:32→17:14)
--- NOTE | 2018-06-18 08:53 | PDOC ---
PROGRESS NOTES Chief Complaint Chief Complaint Severe sepsis Pneumonia bilaterally, likely gram negative with possible mucous plugging on left - appears to be ARDS now Possible seizure, post ictal Metabolic encephalopathy Acute hypercarbic respiratory failure, ICU admit, on BIPAP NSTEMI, 2/2 demand likely Afib RVR Acute diastolic CHF - needs fluids now History of Present Illness History of Present Illness Mr. Hill, is a 72 year old male [facility] resident w/ PMHx severe cognitive deficits who was admitted after a seizure with prolonged unresponsiveness. Found with large leukocytosis, lactic acid elevation, troponin elevation with rapid breathing, admitted to ICU on BIPAP with heparin gtt and sepsis treatment. His niece notes he has the affect and mentation of a 10 year old or younger. Hypotensive and tachypneic overnight. Less alert than last night. Required BIPAP overnight, more agitated. Breathing 50 /min CXR - 1. The dense left chest opacity has improved since yesterday's study, probably representing a resolving mucous plug/atelectasis.2. Moderate residual patchy left pulmonary infiltrate and worsening moderate right lung infiltrate. Anuric overnight, cr climbed up and Hb dropped, no active bleeding. Plan: D/w ID for CT abdomen/pelvis stat, CVC/PICC for pressors Cont antibiotics BIPAP prn diuresing did not help, likely mucous plugging and pneumonia, will f/u ID recs and pulm recs Vitals Vitals Vital Signs Date Time Temp Pulse Resp B/P (MAP) Pulse Ox O2 Delivery O2 Flow Rate FiO2 06/18/18 08:47 55 92 BiPAP/CPAP 06/18/18 07:00 75 97/44 (61) 06/18/18 06:24 15.0 06/18/18 04:00 98.7 98.7 Physical Exam Physical Exam GENERAL: ON bipap, HEENT: anicteric. NECK: Supple. LUNGS coarse bs bilaterally CARDIOVASCULAR: S1, S2, tachycardia. No murmurs. ABDOMEN: Soft, nontender, nondistended, BS+ GENITOURINARY: Shanks in place. EXTREMITIES: No edema, no cyanosis. DERM: Multiple skin breakdown over the toes, dry. No evidence of secondary bacterial infection, onychomycosis. NEUROLOGIC: ON bipap, not responsive General: mild distress, Other (not following commands, awakens and holds my hand) Lungs: Other (decrease bs) Abdomen: Normal bowel sounds, Soft Extremities: No edema, Normal pulses Skin: No breakdown, Other (poor feet and nail care, right) Labs LABS Laboratory Tests Test 06/17/18 13:00 06/17/18 21:00 06/17/18 22:16 06/18/18 05:15 Heparin Anti-Xa Act, Unfractionated 0.24 IU/mL (0.30-0.70) 0.42 IU/mL (0.30-0.70) 0.34 IU/mL (0.30-0.70) Glucose (Fingerstick) 161 mg/dL (70-99) White Blood Count 9.2 x10^3/uL (4.0-11.0) Red Blood Count 2.82 x10^6/uL (4.30-5.70) Hemoglobin 8.8 g/dL (13.0-17.5) Hematocrit 27.1 % (39.0-53.0) Mean Corpuscular Volume 96 fL (79-100) Mean Corpuscular Hemoglobin 31 pg (25-35) Mean Corpuscular Hemoglobin Concent 33 g/dL (31-37) Red Cell Distribution Width 15.0 % (11.5-14.5) Platelet Count 141 x10^3/uL (140-400) Sodium Level 147 mmol/L (136-145) Potassium Level 3.9 mmol/L (3.5-5.1) Chloride Level 112 mmol/L (98-107) Carbon Dioxide Level 23 mmol/L (21-32) Anion Gap 12 (6-14) Blood Urea Nitrogen 82 mg/dL (8-26) Creatinine 2.2 mg/dL (0.7-1.3) Estimated GFR (Cockcroft-Gault) 29.4 Glucose Level 157 mg/dL (70-99) Calcium Level 8.1 mg/dL (8.5-10.1) Assessment and Plan Assessmemt and Plan Problems Medical Problems: (1) Acute respiratory distress Status: Acute (2) Adrenal insufficiency Status: Acute (3) Altered level of consciousness Status: Acute (4) Atrial fibrillation with RVR Status: Acute (5) HCAP (healthcare-associated pneumonia) Status: Acute (6) New onset seizure Status: Acute (7) Renal insufficiency Status: Acute (8) Sepsis Status: Acute Comment Review of Relevant I have reviewed the following items tricia (where applicable) has been applied. Labs Laboratory Tests Test 06/17/18 05:01 06/17/18 08:45 06/17/18 13:00 06/17/18 21:00 White Blood Count 13.6 x10^3/uL (4.0-11.0) Red Blood Count 3.71 x10^6/uL (4.30-5.70) Hemoglobin 11.6 g/dL (13.0-17.5) Hematocrit 35.3 % (39.0-53.0) Mean Corpuscular Volume 95 fL (79-100) Mean Corpuscular Hemoglobin 31 pg (25-35) Mean Corpuscular Hemoglobin Concent 33 g/dL (31-37) Red Cell Distribution Width 15.2 % (11.5-14.5) Platelet Count 163 x10^3/uL (140-400) Heparin Anti-Xa Act, Unfractionated 0.20 IU/mL (0.30-0.70) 0.24 IU/mL (0.30-0.70) 0.42 IU/mL (0.30-0.70) Sodium Level 145 mmol/L (136-145) Potassium Level 4.3 mmol/L (3.5-5.1) Chloride Level 111 mmol/L (98-107) Carbon Dioxide Level 20 mmol/L (21-32) Anion Gap 14 (6-14) Blood Urea Nitrogen 50 mg/dL (8-26) Creatinine 1.8 mg/dL (0.7-1.3) Estimated GFR (Cockcroft-Gault) 37.1 Glucose Level 133 mg/dL (70-99) Calcium Level 8.2 mg/dL (8.5-10.1) Phosphorus Level 4.0 mg/dL (2.6-4.7) Magnesium Level 1.9 mg/dL (1.8-2.4) O2 Saturation 83 % (92-99) Arterial Blood pH 7.35 (7.35-7.45) Arterial Blood pCO2 at Patient Temp 33 mmHg (35-46) Arterial Blood pO2 at Patient Temp 51 mmHg (65-108) Arterial Blood HCO3 18 mmol/L (21-28) Arterial Blood Base Excess -7 mmol/L (-3-3) FiO2 100 Test 06/17/18 22:16 06/18/18 05:15 Glucose (Fingerstick) 161 mg/dL (70-99) White Blood Count 9.2 x10^3/uL (4.0-11.0) Red Blood Count 2.82 x10^6/uL (4.30-5.70) Hemoglobin 8.8 g/dL (13.0-17.5) Hematocrit 27.1 % (39.0-53.0) Mean Corpuscular Volume 96 fL (79-100) Mean Corpuscular Hemoglobin 31 pg (25-35) Mean Corpuscular Hemoglobin Concent 33 g/dL (31-37) Red Cell Distribution Width 15.0 % (11.5-14.5) Platelet Count 141 x10^3/uL (140-400) Heparin Anti-Xa Act, Unfractionated 0.34 IU/mL (0.30-0.70) Sodium Level 147 mmol/L (136-145) Potassium Level 3.9 mmol/L (3.5-5.1) Chloride Level 112 mmol/L (98-107) Carbon Dioxide Level 23 mmol/L (21-32) Anion Gap 12 (6-14) Blood Urea Nitrogen 82 mg/dL (8-26) Creatinine 2.2 mg/dL (0.7-1.3) Estimated GFR (Cockcroft-Gault) 29.4 Glucose Level 157 mg/dL (70-99) Calcium Level 8.1 mg/dL (8.5-10.1) Laboratory Tests Test 06/17/18 13:00 06/17/18 21:00 06/17/18 22:16 06/18/18 05:15 Heparin Anti-Xa Act, Unfractionated 0.24 IU/mL (0.30-0.70) 0.42 IU/mL (0.30-0.70) 0.34 IU/mL (0.30-0.70) Glucose (Fingerstick) 161 mg/dL (70-99) White Blood Count 9.2 x10^3/uL (4.0-11.0) Red Blood Count 2.82 x10^6/uL (4.30-5.70) Hemoglobin 8.8 g/dL (13.0-17.5) Hematocrit 27.1 % (39.0-53.0) Mean Corpuscular Volume 96 fL (79-100) Mean Corpuscular Hemoglobin 31 pg (25-35) Mean Corpuscular Hemoglobin Concent 33 g/dL (31-37) Red Cell Distribution Width 15.0 % (11.5-14.5) Platelet Count 141 x10^3/uL (140-400) Sodium Level 147 mmol/L (136-145) Potassium Level 3.9 mmol/L (3.5-5.1) Chloride Level 112 mmol/L (98-107) Carbon Dioxide Level 23 mmol/L (21-32) Anion Gap 12 (6-14) Blood Urea Nitrogen 82 mg/dL (8-26) Creatinine 2.2 mg/dL (0.7-1.3) Estimated GFR (Cockcroft-Gault) 29.4 Glucose Level 157 mg/dL (70-99) Calcium Level 8.1 mg/dL (8.5-10.1) Microbiology 06/15/18 Blood Culture - Preliminary, Resulted NO GROWTH AFTER 2 DAYS Medications Current Medications Sodium Chloride 1,000 ml @ 1,000 mls/hr Q1H IV Last administered on 06/15/18at 09:42; Start 06/15/18 at 09:42; Stop 06/15/18 at 10:41; Status DC Sodium Chloride 2,270 ml @ 378.333 mls/hr 1X ONCE IV Last administered on at 10:26; Start 06/15/18 at 09:45; Stop 06/15/18 at 15:44; Status DC Acetaminophen (Tylenol Supp) 650 mg 1X ONCE KS Last administered on 06/15/18at 10:17; Start 06/15/18 at 09:45; Stop 06/15/18 at 09:54; Status DC Cefepime HCl (Maxipime) 1 gm 1X ONCE IVP Last administered on 06/15/18at 10:16 ; Start 06/15/18 at 10:00; Stop 06/15/18 at 10:04; Status DC Vancomycin HCl 250 ml @ 250 mls/hr 1X ONCE IV ; Start 06/15/18 at 10:00; Stop 06/15/18 at 10:59; Status UNV Vancomycin HCl 2 gm/Sodium Chloride 500 ml @ 250 mls/hr ONCE ONCE IV Last administered on 06/15/18at 10:27; Start 06/15/18 at 10:30; Stop 06/15/18 at 12:29 ; Status DC Methylprednisolone Sodium Succinate (SOLU-Medrol 125MG VIAL) 250 mg 1X ONCE IV Last administered on 06/15/18at 09:57; Start 06/15/18 at 10:00; Stop 06/15/18 at 10:01; Status DC Albuterol/ Ipratropium (Duoneb) 3 ml 1X ONCE NEB Last administered on at 10:50; Start 06/15/18 at 10:00; Stop 06/15/18 at 10:01; Status DC Methylprednisolone Sodium Succinate (SOLU-Medrol 125MG VIAL) 125 mg STK-MED ONCE .ROUTE ; Start 06/15/18 at 09:54; Stop 06/15/18 at 09:55; Status DC Diltiazem HCl (Cardizem Iv Push) 10 mg 1X ONCE IVP Last administered on at 11:09; Start 06/15/18 at 10:15; Stop 06/15/18 at 10:16; Status DC Lorazepam (Ativan) 1 mg 1X ONCE IV Last administered on 06/15/18at 10:37; Start 06/15/18 at 10:45; Stop 06/15/18 at 10:46; Status DC Sodium Chloride 1,000 ml @ 150 mls/hr Q6H40M IV Last administered on at 09:04; Start 06/15/18 at 11:58; Stop 06/16/18 at 11:57; Status DC Diltiazem HCl 125 mg/Dextrose 125 ml @ 5 mls/hr CONT PRN IV SEE I/O RECORD Last administered on 06/16/18at 09:04; Start 06/15/18 at 12:15 Baclofen (Lioresal) 5 mg TID PO Last administered on 06/16/18at 13:27; Start at 14:00; Stop 06/17/18 at 14:33; Status DC Vitamin D (Vitamin D3) 2,000 unit DAILY PO Last administered on 06/16/18at 09:05 ; Start 06/15/18 at 15:00; Stop 06/17/18 at 14:33; Status DC Famotidine (Pepcid) 20 mg QHS PO ; Start 06/15/18 at 15:00 Al Hydroxide/Mg Hydroxide (Mylanta Plus Xs) 30 ml PRN Q12HRS PRN PO HEARTBURN / GAS; Start 06/15/18 at 21:00 Magnesium Hydroxide (Milk Of Magnesia) 400 mg PRN QHS PRN PO CONSTIPATION; Start 06/15/18 at 13:45 Nitroglycerin (Nitrostat) 0.4 mg PRN Q5MIN PRN SL CHEST PAIN; Start 06/15/18 at 13:45 Tramadol HCl (Ultram) 50 mg PRN Q6HRS PRN PO PAIN Last administered on 16:44; Start 06/15/18 at 13:45 Duloxetine HCl (Cymbalta) 60 mg DAILY PO Last administered on 06/16/18 09:05; Start 06/15/18 at 15:00; Stop 06/17/18 at 14:33; Status DC Lidocaine (Lidoderm) 1 patch DAILY TD Last administered on 06/17/18 08:10; Start 06/15/18 at 15:00 Ondansetron HCl (Zofran Odt) 4 mg PRN Q8HRS PRN PO NAUSEA/VOMITING; Start 06/15 at 14:15 Polyethylene Glycol (miraLAX PACKET) 17 gm DAILY PO Last administered on 09:05; Start 06/15/18 at 15:00; Stop 06/17/18 at 14:33; Status DC Miscellaneous (Lidoderm Patch Removal) 1 ea QHS MC Last administered on at 21:00; Start 06/15/18 at 21:00 Vancomycin HCl (Vanco Per Pharmacy) 1 each PRN DAILY PRN MC SEE COMMENTS Last administered on 06/15/18at 15:53; Start 06/15/18 at 15:30; Stop 06/17/18 at 08:28 ; Status DC Cefepime HCl (Maxipime) 2 gm Q8HRS IVP Last administered on 06/15/18at 15:50; Start 06/15/18 at 15:30; Stop 06/15/18 at 18:43; Status DC Vancomycin HCl 1.5 gm/Sodium Chloride 500 ml @ 250 mls/hr Q24H IV Last administered on 4/15/19at 11:29; Start 06/16/18 at 11:00; Stop 06/17/18 at 08:27 ; Status DC Vancomycin HCl (Vancomycin Trough Level) 1 each 1X ONCE MC ; Start 06/17/18 at 10:30; Stop 06/17/18 at 10:30; Status DC Albuterol/ Ipratropium (Duoneb) 3 ml RTQID NEB Last administered on 06/18/18at 08:18; Start 06/15/18 at 20:00 Prednisone (Prednisone) 20 mg DAILY PO Last administered on 06/16/18at 09:05; Start 06/16/18 at 09:00; Stop 06/17/18 at 14:33; Status DC Heparin Sodium (Porcine) (Heparin Sodium) 4,000 unit 1X ONCE IV Last administered on 06/15/18at 16:55; Start 06/15/18 at 16:45; Stop 06/15/18 at 16:51 ; Status DC Heparin Sodium/ Dextrose 500 ml @ 0 mls/hr CONT PRN IV SEE I/O RECORD Last administered on 06/18/18at 05:16; Start 06/15/18 at 16:45 Heparin Sodium (Porcine) (Heparin Sodium) 2,100 unit PRN Q6HRS PRN IV FOR UFH LEVEL LESS THAN 0.2; Start 06/15/18 at 16:45 Info (Anti-Coagulation Monitoring By Pharmacy) 1 each PRN DAILY PRN MC SEE COMMENTS; Start 06/15/18 at 17:00 Cefepime HCl (Maxipime) 1 gm Q8HRS IVP Last administered on 06/18/18at 05:57; Start 06/15/18 at 22:00; Stop 06/18/18 at 07:55; Status DC Doxycycline Hyclate (Vibra-Tab) 100 mg BID PO Last administered on 06/16/18at 09 :10; Start 06/16/18 at 09:00; Stop 06/17/18 at 13:20; Status DC Linezolid/Dextrose 300 ml @ 300 mls/hr Q12HR IV ; Start 06/16/18 at 10:00; Stop 06/16/18 at 10:00; Status DC Metoprolol Tartrate (Lopressor) 50 mg BID PO Last administered on 06/16/18at 11: 28; Start 06/16/18 at 12:00; Stop 06/17/18 at 12:41; Status DC Lorazepam (Ativan) 2 mg PRN Q4HRS PRN IV ANXIETY / AGITATION Last administered on 06/18/18 06:24; Start 06/16/18 at 19:45 Lorazepam (Ativan) 1 mg 1X ONCE IV Last administered on 06/16/18at 22:18; Start 06/16/18 at 22:00; Stop 06/17/18 at 01:30; Status DC Dexmedetomidine HCl 200 mcg/ Sodium Chloride 50 ml @ 0 mls/hr CONT PRN IV PER PROTOCOL Last administered on 06/18/18 08:12; Start 06/16/18 at 23:00 Sodium Chloride 500 ml @ 500 mls/hr 1X PRN PRN IV SEE COMMENTS Last administered on 06/17/18at 22:04; Start 06/17/18 at 01:45 Atropine Sulfate (ATROPINE 0.5mg SYRINGE) 0.5 mg PRN Q5MIN PRN IV SEE COMMENTS ; Start 06/17/18 at 01:45 Furosemide (Lasix) 60 mg 1X ONCE IVP Last administered on 06/17/18 08:08; Start 06/17/18 at 08:00; Stop 06/17/18 at 08:01; Status DC Sodium Bicarbonate (Sodium Bicarb Adult 8.4% Syr) 100 meq 1X ONCE IV Last administered on 06/17/18at 10:00; Start 06/17/18 at 10:00; Stop 06/17/18 at 10:01 ; Status DC Sodium Bicarbonate (Sodium Bicarb Adult 8.4% Syr) 50 meq STK-MED ONCE .ROUTE ; Start 06/17/18 at 09:56; Stop 06/17/18 at 09:57; Status DC Digoxin (Lanoxin) 500 mcg 1X ONCE IV Last administered on 06/17/18 12:58; Start 06/17/18 at 12:45; Stop 06/17/18 at 12:46; Status DC Aspirin (Aspirin) 150 mg DAILY KS Last administered on 06/17/18 12:59; Start 06/17/18 at 12:45 Metoprolol Tartrate (Lopressor Vial) 5 mg Q6HRS IVP Last administered on 12:59; Start 06/17/18 at 13:00 Morphine Sulfate (Morphine Sulfate) 4 mg PRN Q2HR PRN IV PAIN Last administered on 06/18/18at 08:47; Start 06/17/18 at 13:15 Doxycycline Hyclate 100 mg/ Dextrose 100 ml @ 50 mls/hr Q12HR IV Last administered on 06/17/18at 21:58; Start 06/17/18 at 14:00 Linezolid/Dextrose 300 ml @ 300 mls/hr Q12HR IV Last administered on at 21:59; Start 06/17/18 at 21:00 Meropenem 500 mg/ Sodium Chloride 50 ml @ 100 mls/hr Q8HRS IV ; Start 06/18/18 at 14:00 Norepinephrine Bitartrate 250 ml @ 1.875 mls/ hr CONT PRN IV SEE I/O RECORD Last administered on 06/18/18at 08:32; Start 06/18/18 at 08:30 Active Scripts Active Meloxicam 7.5 Mg Tablet 7.5 Mg PO DAILY Zofran (Ondansetron Hcl) 4 Mg Tablet 4 Mg PO PRN TID PRN nausea/vomiting Reported Tramadol Hcl 50 Mg Tablet 50 Mg PO Q6HRS PRN NITROGLYCERIN SubLingual (Nitroglycerin) 0.4 Mg Tab.subl 0.4 Mg SL PRN Q5MIN PRN Milk Of Magnesia (Magnesium Hydroxide) 400 Mg/5 Ml Oral.susp 400 Mg PO PRN QHS PRN [place] Greaseless Cream (Methyl Salicylate/Menthol) 57 Gm Cream..g. 57 Gm TP PRN Q1HR PRN Vitamin D3 (Cholecalciferol (Vitamin D3)) 1,000 Unit Tablet 2,000 Unit PO DAILY Vitamin B-12 (Cyanocobalamin (Vitamin B-12)) 1,000 Mcg Tablet 1 Tab PO DAILY Trazodone Hcl 50 Mg Tablet 50 Mg PO HS Miralax (Polyethylene Glycol 3350) 17 Gm Powd.pack 1 Pkt PO DAILY Maalox Maximum Strength Susp (Mag Hydrox/Al Hydrox/Simeth) 355 Ml Oral.susp 355 Ml PO Q12HR Cortef (Hydrocortisone) 20 Mg Tablet 20 Mg PO AFTRNOON PRN Cortef (Hydrocortisone) 10 Mg Tablet 15 Mg PO DAILY Pepcid (Famotidine) 20 Mg Tablet 20 Mg PO BID Cymbalta (Duloxetine Hcl) 60 Mg Capsule.dr 1 Cap PO DAILY Baclofen 10 Mg Tablet 5 Mg PO TID Lidocaine 1 Each Adh..patch 1 Each TP DAILY Vitals/I & O Vital Sign - Last 24 Hours 06/17/18 06/17/18 06/17/18 06/17/18 09:00 10:00 11:00 11:15 Pulse 97 103 103 Resp 52 54 50 B/P (MAP) 104/53 (70) 95/48 (64) 80/42 (55) Pulse Ox 93 86 99 96 O2 Delivery BiPAP/CPAP Nasal Cannula BiPAP/CPAP High Flow [employer] O2 Flow Rate 15.0 06/17/18 06/17/18 06/17/18 06/17/18 12:00 12:01 12:58 12:59 Temp 99.3 99.3 Pulse 120 120 120 Resp 56 B/P (MAP) 132/80 (97) 132/80 132/80 Pulse Ox 99 O2 Delivery Bi-pap commissioned defence [employer] 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 06/17/18 06/17/18 06/17/18 06/17/18 13:00 13:10 13:13 13:20 Pulse 146 Resp 50 60 B/P (MAP) 148/77 (100) Pulse Ox 99 94 99 O2 Delivery commissioned defence force officer BiPAP/CPAP O2 Flow Rate 15.0 15.0 06/17/18 06/17/18 06/17/18 06/17/18 14:00 15:00 15:25 15:55 Pulse 103 91 Resp 60 60 58 B/P (MAP) 84/50 (61) 87/55 (66) Pulse Ox 95 98 98 98 O2 Delivery BiPAP/CPAP BiPAP/CPAP BiPAP/CPAP 06/17/18 06/17/18 06/17/18 06/17/18 16:00 16:00 16:00 17:00 Temp 99.4 99.4 Pulse 90 96 Resp 60 44 B/P (MAP) 81/53 (62) 81/48 (59) Pulse Ox 95 100 O2 Delivery BiPAP/CPAP Bi-pap BiPAP/CPAP O2 Flow Rate 15.0 06/17/18 06/17/18 06/17/18 06/17/18 17:24 17:41 17:51 17:53 Pulse 96 96 Resp 45 38 B/P (MAP) 81/48 84/51 (62) Pulse Ox 100 100 100 O2 Delivery BiPAP/CPAP BiPAP/CPAP 06/17/18 06/17/18 06/17/18 06/17/18 19:00 19:59 20:00 20:00 Pulse 84 Resp 30 B/P (MAP) 85/61 (69) Pulse Ox 100 99 O2 Delivery BiPAP/CPAP BiPAP/CPAP Bi-pap O2 Flow Rate 15.0 06/17/18 06/17/18 06/17/18 06/17/18 20:00 21:00 22:00 22:26 Temp 99.2 99.2 Pulse 94 100 138 Resp 32 26 60 60 B/P (MAP) 92/52 (65) 88/55 (66) 98/51 (67) Pulse Ox 100 100 86 99 O2 Delivery BiPAP/CPAP BiPAP/CPAP BiPAP/CPAP Ventilator O2 Flow Rate 15.0 06/17/18 06/17/18 06/17/18 06/18/18 23:00 23:00 23:59 00:00 Pulse 91 83 Resp 30 B/P (MAP) 98/51 (67) 75/39 Pulse Ox 100 100 O2 Delivery BiPAP/CPAP BiPAP/CPAP Bi-pap 06/18/18 06/18/18 06/18/18 06/18/18 00:00 00:01 01:00 02:00 Temp 98.2 98.2 Pulse 83 84 85 Resp 29 29 27 B/P (MAP) 75/39 (51) 79/43 (55) 79/52 (61) Pulse Ox 100 100 100 O2 Delivery BiPAP/CPAP BiPAP/CPAP BiPAP/CPAP O2 Flow Rate 15.0 06/18/18 06/18/18 06/18/18 06/18/18 02:30 03:00 03:11 03:41 Pulse 130 Resp 50 50 B/P (MAP) 80/41 (54) Pulse Ox 100 86 100 O2 Delivery BiPAP/CPAP BiPAP/CPAP O2 Flow Rate 15.0 15.0 06/18/18 06/18/18 06/18/18 06/18/18 04:00 04:00 04:00 05:00 Temp 98.7 98.7 Pulse 84 104 Resp 28 50 B/P (MAP) 66/40 (49) 72/39 (50) Pulse Ox 100 100 O2 Delivery Bi-pap BiPAP/CPAP BiPAP/CPAP O2 Flow Rate 15.0 06/18/18 06/18/18 06/18/18 06/18/18 05:15 06:00 06:24 07:00 Pulse 89 75 Resp 16 41 55 B/P (MAP) 85/49 (61) 97/44 (61) Pulse Ox 100 100 100 93 O2 Delivery BiPAP/CPAP BiPAP/CPAP BiPAP/CPAP BiPAP/CPAP O2 Flow Rate 15.0 06/18/18 06/18/18 06/18/18 07:43 08:20 08:47 Resp 55 55 Pulse Ox 93 95 92 O2 Delivery BiPAP/CPAP BiPAP/CPAP BiPAP/CPAP Intake and Output 06/17/18 06/17/18 06/18/18 14:59 22:59 06:59 Intake Total 600 ml 373 ml 50 ml Output Total 1515 ml 415 ml 300 ml Balance -915 ml -42 ml -250 ml SKYLAR GUZMÁN MD Jun 18, 2018 08:53
[2018-06-18] MEDS ORDERED: BISACODYL 10 MG SUPP.RECT. PR PRN (10:00)
--- NOTE | 2018-06-18 10:15 | PDOC ---
PROGRESS NOTES Assessment Problems Medical Problems: (1) Acute respiratory distress Status: Acute (2) Adrenal insufficiency Status: Acute (3) Altered level of consciousness Status: Acute (4) Atrial fibrillation with RVR Status: Acute (5) HCAP (healthcare-associated pneumonia) Status: Acute (6) New onset seizure Status: Acute (7) Renal insufficiency Status: Acute (8) Sepsis Status: Acute Tremulous movements probably related to sepsis, doubt epileptic seizure, no recurrence Static encephalopathy, normally behaves at the level of a 10-year-old Plan Hold on anticonvulsants, electroencephalogram Treat medical problems He is DNR, perhaps a full palliative approach is in order Subjective none Objective Vital Signs Date Time Temp Pulse Resp B/P (MAP) Pulse Ox O2 Delivery O2 Flow Rate FiO2 06/18/18 08:47 55 92 BiPAP/CPAP 06/18/18 07:00 75 97/44 (61) 06/18/18 06:24 15.0 06/18/18 04:00 98.7 98.7 Intake and Output 06/18/18 07:00 Intake Total 1023 ml Output Total 2230 ml Balance -1207 ml IV Total 1023 ml Output Urine Total 2230 ml PHYSICAL EXAM In respiratory distress, tachypneic, on BiPap, does not follow commands PERRL. EOMI. CN: no focal findings. Muscle tone: normal. Muscle strength: moves extremities DTR: 1+ Plantar reflex: flexor Gait: not examined Sensory exam: not cooperative Cerebellar: not cooperative. Review of Relevant I have reviewed the following items tricia (where applicable) has been applied. Labs Laboratory Tests Test 06/17/18 05:01 06/17/18 08:45 06/17/18 13:00 06/17/18 21:00 White Blood Count 13.6 x10^3/uL (4.0-11.0) Red Blood Count 3.71 x10^6/uL (4.30-5.70) Hemoglobin 11.6 g/dL (13.0-17.5) Hematocrit 35.3 % (39.0-53.0) Mean Corpuscular Volume 95 fL (79-100) Mean Corpuscular Hemoglobin 31 pg (25-35) Mean Corpuscular Hemoglobin Concent 33 g/dL (31-37) Red Cell Distribution Width 15.2 % (11.5-14.5) Platelet Count 163 x10^3/uL (140-400) Heparin Anti-Xa Act, Unfractionated 0.20 IU/mL (0.30-0.70) 0.24 IU/mL (0.30-0.70) 0.42 IU/mL (0.30-0.70) Sodium Level 145 mmol/L (136-145) Potassium Level 4.3 mmol/L (3.5-5.1) Chloride Level 111 mmol/L (98-107) Carbon Dioxide Level 20 mmol/L (21-32) Anion Gap 14 (6-14) Blood Urea Nitrogen 50 mg/dL (8-26) Creatinine 1.8 mg/dL (0.7-1.3) Estimated GFR (Cockcroft-Gault) 37.1 Glucose Level 133 mg/dL (70-99) Calcium Level 8.2 mg/dL (8.5-10.1) Phosphorus Level 4.0 mg/dL (2.6-4.7) Magnesium Level 1.9 mg/dL (1.8-2.4) O2 Saturation 83 % (92-99) Arterial Blood pH 7.35 (7.35-7.45) Arterial Blood pCO2 at Patient Temp 33 mmHg (35-46) Arterial Blood pO2 at Patient Temp 51 mmHg (65-108) Arterial Blood HCO3 18 mmol/L (21-28) Arterial Blood Base Excess -7 mmol/L (-3-3) FiO2 100 Test 06/17/18 22:16 06/18/18 05:15 Glucose (Fingerstick) 161 mg/dL (70-99) White Blood Count 9.2 x10^3/uL (4.0-11.0) Red Blood Count 2.82 x10^6/uL (4.30-5.70) Hemoglobin 8.8 g/dL (13.0-17.5) Hematocrit 27.1 % (39.0-53.0) Mean Corpuscular Volume 96 fL (79-100) Mean Corpuscular Hemoglobin 31 pg (25-35) Mean Corpuscular Hemoglobin Concent 33 g/dL (31-37) Red Cell Distribution Width 15.0 % (11.5-14.5) Platelet Count 141 x10^3/uL (140-400) Heparin Anti-Xa Act, Unfractionated 0.34 IU/mL (0.30-0.70) Sodium Level 147 mmol/L (136-145) Potassium Level 3.9 mmol/L (3.5-5.1) Chloride Level 112 mmol/L (98-107) Carbon Dioxide Level 23 mmol/L (21-32) Anion Gap 12 (6-14) Blood Urea Nitrogen 82 mg/dL (8-26) Creatinine 2.2 mg/dL (0.7-1.3) Estimated GFR (Cockcroft-Gault) 29.4 Glucose Level 157 mg/dL (70-99) Calcium Level 8.1 mg/dL (8.5-10.1) Laboratory Tests Test 06/17/18 13:00 06/17/18 21:00 06/17/18 22:16 06/18/18 05:15 Heparin Anti-Xa Act, Unfractionated 0.24 IU/mL (0.30-0.70) 0.42 IU/mL (0.30-0.70) 0.34 IU/mL (0.30-0.70) Glucose (Fingerstick) 161 mg/dL (70-99) White Blood Count 9.2 x10^3/uL (4.0-11.0) Red Blood Count 2.82 x10^6/uL (4.30-5.70) Hemoglobin 8.8 g/dL (13.0-17.5) Hematocrit 27.1 % (39.0-53.0) Mean Corpuscular Volume 96 fL (79-100) Mean Corpuscular Hemoglobin 31 pg (25-35) Mean Corpuscular Hemoglobin Concent 33 g/dL (31-37) Red Cell Distribution Width 15.0 % (11.5-14.5) Platelet Count 141 x10^3/uL (140-400) Sodium Level 147 mmol/L (136-145) Potassium Level 3.9 mmol/L (3.5-5.1) Chloride Level 112 mmol/L (98-107) Carbon Dioxide Level 23 mmol/L (21-32) Anion Gap 12 (6-14) Blood Urea Nitrogen 82 mg/dL (8-26) Creatinine 2.2 mg/dL (0.7-1.3) Estimated GFR (Cockcroft-Gault) 29.4 Glucose Level 157 mg/dL (70-99) Calcium Level 8.1 mg/dL (8.5-10.1) Microbiology 06/15/18 Blood Culture - Preliminary, Resulted NO GROWTH AFTER 2 DAYS Medications Current Medications Sodium Chloride 1,000 ml @ 1,000 mls/hr Q1H IV Last administered on 06/15/18at 09:42; Start 06/15/18 at 09:42; Stop 06/15/18 at 10:41; Status DC Sodium Chloride 2,270 ml @ 378.333 mls/hr 1X ONCE IV Last administered on at 10:26; Start 06/15/18 at 09:45; Stop 06/15/18 at 15:44; Status DC Acetaminophen (Tylenol Supp) 650 mg 1X ONCE MS Last administered on 06/15/18at 10:17; Start 06/15/18 at 09:45; Stop 06/15/18 at 09:54; Status DC Cefepime HCl (Maxipime) 1 gm 1X ONCE IVP Last administered on 06/15/18at 10:16 ; Start 06/15/18 at 10:00; Stop 06/15/18 at 10:04; Status DC Vancomycin HCl 250 ml @ 250 mls/hr 1X ONCE IV ; Start 06/15/18 at 10:00; Stop 06/15/18 at 10:59; Status UNV Vancomycin HCl 2 gm/Sodium Chloride 500 ml @ 250 mls/hr ONCE ONCE IV Last administered on 06/15/18at 10:27; Start 06/15/18 at 10:30; Stop 06/15/18 at 12:29 ; Status DC Methylprednisolone Sodium Succinate (SOLU-Medrol 125MG VIAL) 250 mg 1X ONCE IV Last administered on 06/15/18at 09:57; Start 06/15/18 at 10:00; Stop 06/15/18 at 10:01; Status DC Albuterol/ Ipratropium (Duoneb) 3 ml 1X ONCE NEB Last administered on at 10:50; Start 06/15/18 at 10:00; Stop 06/15/18 at 10:01; Status DC Methylprednisolone Sodium Succinate (SOLU-Medrol 125MG VIAL) 125 mg STK-MED ONCE .ROUTE ; Start 06/15/18 at 09:54; Stop 06/15/18 at 09:55; Status DC Diltiazem HCl (Cardizem Iv Push) 10 mg 1X ONCE IVP Last administered on 11:09; Start 06/15/18 at 10:15; Stop 06/15/18 at 10:16; Status DC Lorazepam (Ativan) 1 mg 1X ONCE IV Last administered on 06/15/18at 10:37; Start 06/15/18 at 10:45; Stop 06/15/18 at 10:46; Status DC Sodium Chloride 1,000 ml @ 150 mls/hr Q6H40M IV Last administered on at 09:04; Start 06/15/18 at 11:58; Stop 06/16/18 at 11:57; Status DC Diltiazem HCl 125 mg/Dextrose 125 ml @ 5 mls/hr CONT PRN IV SEE I/O RECORD Last administered on 06/16/18 09:04; Start 06/15/18 at 12:15 Baclofen (Lioresal) 5 mg TID PO Last administered on 06/16/18at 13:27; Start at 14:00; Stop 06/17/18 at 14:33; Status DC Vitamin D (Vitamin D3) 2,000 unit DAILY PO Last administered on 06/16/18 09:05 ; Start 06/15/18 at 15:00; Stop 06/17/18 at 14:33; Status DC Famotidine (Pepcid) 20 mg QHS PO ; Start 06/15/18 at 15:00 Al Hydroxide/Mg Hydroxide (Mylanta Plus Xs) 30 ml PRN Q12HRS PRN PO HEARTBURN / GAS; Start 06/15/18 at 21:00 Magnesium Hydroxide (Milk Of Magnesia) 400 mg PRN QHS PRN PO CONSTIPATION; Start 06/15/18 at 13:45 Nitroglycerin (Nitrostat) 0.4 mg PRN Q5MIN PRN SL CHEST PAIN; Start 06/15/18 at 13:45 Tramadol HCl (Ultram) 50 mg PRN Q6HRS PRN PO PAIN Last administered on at 16:44; Start 06/15/18 at 13:45 Duloxetine HCl (Cymbalta) 60 mg DAILY PO Last administered on 06/16/18at 09:05; Start 06/15/18 at 15:00; Stop 06/17/18 at 14:33; Status DC Lidocaine (Lidoderm) 1 patch DAILY TD Last administered on 06/17/18 08:10; Start 06/15/18 at 15:00 Ondansetron HCl (Zofran Odt) 4 mg PRN Q8HRS PRN PO NAUSEA/VOMITING; Start 06/15 at 14:15 Polyethylene Glycol (miraLAX PACKET) 17 gm DAILY PO Last administered on 09:05; Start 06/15/18 at 15:00; Stop 06/17/18 at 14:33; Status DC Miscellaneous (Lidoderm Patch Removal) 1 ea QHS MC Last administered on 21:00; Start 06/15/18 at 21:00 Vancomycin HCl (Vanco Per Pharmacy) 1 each PRN DAILY PRN MC SEE COMMENTS Last administered on 06/15/18at 15:53; Start 06/15/18 at 15:30; Stop 06/17/18 at 08:28 ; Status DC Cefepime HCl (Maxipime) 2 gm Q8HRS IVP Last administered on 06/15/18 15:50; Start 06/15/18 at 15:30; Stop 06/15/18 at 18:43; Status DC Vancomycin HCl 1.5 gm/Sodium Chloride 500 ml @ 250 mls/hr Q24H IV Last administered on 06/16/18 11:29; Start 06/16/18 at 11:00; Stop 06/17/18 at 08:27 ; Status DC Vancomycin HCl (Vancomycin Trough Level) 1 each 1X ONCE MC ; Start 06/17/18 at 10:30; Stop 06/17/18 at 10:30; Status DC Albuterol/ Ipratropium (Duoneb) 3 ml RTQID NEB Last administered on 06/18/18 08:18; Start 06/15/18 at 20:00 Prednisone (Prednisone) 20 mg DAILY PO Last administered on 06/16/18 09:05; Start 06/16/18 at 09:00; Stop 06/17/18 at 14:33; Status DC Heparin Sodium (Porcine) (Heparin Sodium) 4,000 unit 1X ONCE IV Last administered on 06/15/18at 16:55; Start 06/15/18 at 16:45; Stop 06/15/18 at 16:51 ; Status DC Heparin Sodium/ Dextrose 500 ml @ 0 mls/hr CONT PRN IV SEE I/O RECORD Last administered on 06/18/18at 05:16; Start 06/15/18 at 16:45 Heparin Sodium (Porcine) (Heparin Sodium) 2,100 unit PRN Q6HRS PRN IV FOR UFH LEVEL LESS THAN 0.2; Start 06/15/18 at 16:45 Info (Anti-Coagulation Monitoring By Pharmacy) 1 each PRN DAILY PRN MC SEE COMMENTS; Start 06/15/18 at 17:00 Cefepime HCl (Maxipime) 1 gm Q8HRS IVP Last administered on 06/18/18at 05:57; Start 06/15/18 at 22:00; Stop 06/18/18 at 07:55; Status DC Doxycycline Hyclate (Vibra-Tab) 100 mg BID PO Last administered on 06/16/18at 09 :10; Start 06/16/18 at 09:00; Stop 06/17/18 at 13:20; Status DC Linezolid/Dextrose 300 ml @ 300 mls/hr Q12HR IV ; Start 06/16/18 at 10:00; Stop 06/16/18 at 10:00; Status DC Metoprolol Tartrate (Lopressor) 50 mg BID PO Last administered on 06/16/18at 11: 28; Start 06/16/18 at 12:00; Stop 06/17/18 at 12:41; Status DC Lorazepam (Ativan) 2 mg PRN Q4HRS PRN IV ANXIETY / AGITATION Last administered on 06/18/18at 06:24; Start 06/16/18 at 19:45; Stop 06/18/18 at 09:52; Status DC Lorazepam (Ativan) 1 mg 1X ONCE IV Last administered on 06/16/18at 22:18; Start 06/16/18 at 22:00; Stop 06/17/18 at 01:30; Status DC Dexmedetomidine HCl 200 mcg/ Sodium Chloride 50 ml @ 0 mls/hr CONT PRN IV PER PROTOCOL Last administered on 06/18/18at 08:12; Start 06/16/18 at 23:00 Sodium Chloride 500 ml @ 500 mls/hr 1X PRN PRN IV SEE COMMENTS Last administered on 06/17/18at 22:04; Start 06/17/18 at 01:45 Atropine Sulfate (ATROPINE 0.5mg SYRINGE) 0.5 mg PRN Q5MIN PRN IV SEE COMMENTS ; Start 06/17/18 at 01:45 Furosemide (Lasix) 60 mg 1X ONCE IVP Last administered on 06/17/18at 08:08; Start 06/17/18 at 08:00; Stop 06/17/18 at 08:01; Status DC Sodium Bicarbonate (Sodium Bicarb Adult 8.4% Syr) 100 meq 1X ONCE IV Last administered on 06/17/18at 10:00; Start 06/17/18 at 10:00; Stop 06/17/18 at 10:01 ; Status DC Sodium Bicarbonate (Sodium Bicarb Adult 8.4% Syr) 50 meq STK-MED ONCE .ROUTE ; Start 06/17/18 at 09:56; Stop 06/17/18 at 09:57; Status DC Digoxin (Lanoxin) 500 mcg 1X ONCE IV Last administered on 06/17/18at 12:58; Start 06/17/18 at 12:45; Stop 06/17/18 at 12:46; Status DC Aspirin (Aspirin) 150 mg DAILY MS Last administered on 06/17/18at 12:59; Start 06/17/18 at 12:45 Metoprolol Tartrate (Lopressor Vial) 5 mg Q6HRS IVP Last administered on at 12:59; Start 06/17/18 at 13:00 Morphine Sulfate (Morphine Sulfate) 4 mg PRN Q2HR PRN IV PAIN Last administered on 06/18/18at 08:47; Start 06/17/18 at 13:15 Doxycycline Hyclate 100 mg/ Dextrose 100 ml @ 50 mls/hr Q12HR IV Last administered on 06/17/18at 21:58; Start 06/17/18 at 14:00 Linezolid/Dextrose 300 ml @ 300 mls/hr Q12HR IV Last administered on at 21:59; Start 06/17/18 at 21:00 Meropenem 500 mg/ Sodium Chloride 50 ml @ 100 mls/hr Q8HRS IV ; Start 06/18/18 at 14:00 Norepinephrine Bitartrate 250 ml @ 1.875 mls/ hr CONT PRN IV SEE I/O RECORD Last administered on 06/18/18at 08:32; Start 06/18/18 at 08:30 Lorazepam (Ativan) 1 mg PRN Q1HR PRN IV ANXIETY / AGITATION; Start 06/18/18 at 10:00 Bisacodyl (Dulcolax Supp) 10 mg PRN DAILY PRN MS CONSTIPATION; Start 06/18/18 at 10:00 Active Scripts Active Meloxicam 7.5 Mg Tablet 7.5 Mg PO DAILY Zofran (Ondansetron Hcl) 4 Mg Tablet 4 Mg PO PRN TID PRN nausea/vomiting Reported Tramadol Hcl 50 Mg Tablet 50 Mg PO Q6HRS PRN NITROGLYCERIN SubLingual (Nitroglycerin) 0.4 Mg Tab.subl 0.4 Mg SL PRN Q5MIN PRN Milk Of Magnesia (Magnesium Hydroxide) 400 Mg/5 Ml Oral.susp 400 Mg PO PRN QHS PRN [place] Greaseless Cream (Methyl Salicylate/Menthol) 57 Gm Cream..g. 57 Gm TP PRN Q1HR PRN Vitamin D3 (Cholecalciferol (Vitamin D3)) 1,000 Unit Tablet 2,000 Unit PO DAILY Vitamin B-12 (Cyanocobalamin (Vitamin B-12)) 1,000 Mcg Tablet 1 Tab PO DAILY Trazodone Hcl 50 Mg Tablet 50 Mg PO HS Miralax (Polyethylene Glycol 3350) 17 Gm Powd.pack 1 Pkt PO DAILY Maalox Maximum Strength Susp (Mag Hydrox/Al Hydrox/Simeth) 355 Ml Oral.susp 355 Ml PO Q12HR Cortef (Hydrocortisone) 20 Mg Tablet 20 Mg PO AFTRNOON PRN Cortef (Hydrocortisone) 10 Mg Tablet 15 Mg PO DAILY Pepcid (Famotidine) 20 Mg Tablet 20 Mg PO BID Cymbalta (Duloxetine Hcl) 60 Mg Capsule.dr 1 Cap PO DAILY Baclofen 10 Mg Tablet 5 Mg PO TID Lidocaine 1 Each Adh..patch 1 Each TP DAILY Vitals/I & O Vital Sign - Last 24 Hours 06/17/18 06/17/18 06/17/18 06/17/18 11:00 11:15 12:00 12:01 Temp 99.3 99.3 Pulse 103 120 Resp 50 56 B/P (MAP) 80/42 (55) 132/80 (97) Pulse Ox 99 96 99 O2 Delivery BiPAP/CPAP High Flow [employer] 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 06/17/18 06/17/18 06/17/18 06/17/18 12:58 12:59 13:00 13:10 Pulse 120 120 146 Resp 50 B/P (MAP) 132/80 132/80 148/77 (100) Pulse Ox 99 94 O2 Delivery wool broker BiPAP/CPAP 06/17/18 06/17/18 06/17/18 06/17/18 13:13 13:20 14:00 15:00 Pulse 103 91 Resp 60 60 60 B/P (MAP) 84/50 (61) 87/55 (66) Pulse Ox 99 95 98 O2 Delivery BiPAP/CPAP BiPAP/CPAP O2 Flow Rate 15.0 15.0 06/17/18 06/17/18 06/17/18 06/17/18 15:25 15:55 16:00 16:00 Temp 99.4 99.4 Pulse 90 Resp 58 60 B/P (MAP) 81/53 (62) Pulse Ox 98 98 95 O2 Delivery BiPAP/CPAP BiPAP/CPAP O2 Flow Rate 15.0 06/17/18 06/17/18 06/17/18 06/17/18 16:00 17:00 17:24 17:41 Pulse 96 Resp 44 45 B/P (MAP) 81/48 (59) Pulse Ox 100 100 100 O2 Delivery Bi-pap BiPAP/CPAP BiPAP/CPAP 06/17/18 06/17/18 06/17/18 06/17/18 17:51 17:53 19:00 19:59 Pulse 96 96 84 Resp 38 30 B/P (MAP) 81/48 84/51 (62) 85/61 (69) Pulse Ox 100 100 99 O2 Delivery BiPAP/CPAP BiPAP/CPAP BiPAP/CPAP 06/17/18 06/17/18 06/17/18 06/17/18 20:00 20:00 20:00 21:00 Temp 99.2 99.2 Pulse 94 100 Resp 32 26 B/P (MAP) 92/52 (65) 88/55 (66) Pulse Ox 100 100 O2 Delivery Bi-pap BiPAP/CPAP BiPAP/CPAP O2 Flow Rate 15.0 06/17/18 06/17/18 06/17/18 06/17/18 22:00 22:26 23:00 23:00 Pulse 138 91 Resp 60 60 30 B/P (MAP) 98/51 (67) 98/51 (67) Pulse Ox 86 99 100 100 O2 Delivery BiPAP/CPAP Ventilator BiPAP/CPAP BiPAP/CPAP O2 Flow Rate 15.0 06/17/18 06/18/18 06/18/18 06/18/18 23:59 00:00 00:00 00:01 Temp 98.2 98.2 Pulse 83 83 Resp 29 B/P (MAP) 75/39 75/39 (51) Pulse Ox 100 O2 Delivery Bi-pap BiPAP/CPAP O2 Flow Rate 15.0 06/18/18 06/18/18 06/18/18 06/18/18 01:00 02:00 02:30 03:00 Pulse 84 85 130 Resp 29 27 50 B/P (MAP) 79/43 (55) 79/52 (61) 80/41 (54) Pulse Ox 100 100 100 86 O2 Delivery BiPAP/CPAP BiPAP/CPAP BiPAP/CPAP BiPAP/CPAP 06/18/18 06/18/18 06/18/18 06/18/18 03:11 03:41 04:00 04:00 Temp 98.7 98.7 Pulse 84 Resp 50 28 B/P (MAP) 66/40 (49) Pulse Ox 100 100 O2 Delivery Bi-pap BiPAP/CPAP O2 Flow Rate 15.0 15.0 06/18/18 06/18/18 06/18/18 06/18/18 04:00 05:00 05:15 06:00 Pulse 104 89 Resp 50 16 B/P (MAP) 72/39 (50) 85/49 (61) Pulse Ox 100 100 100 O2 Delivery BiPAP/CPAP BiPAP/CPAP BiPAP/CPAP O2 Flow Rate 15.0 06/18/18 06/18/18 06/18/18 06/18/18 06:24 07:00 07:43 08:20 Pulse 75 Resp 41 55 55 B/P (MAP) 97/44 (61) Pulse Ox 100 93 93 95 O2 Delivery BiPAP/CPAP BiPAP/CPAP BiPAP/CPAP BiPAP/CPAP O2 Flow Rate 15.0 06/18/18 08:47 Resp 55 Pulse Ox 92 O2 Delivery BiPAP/CPAP Intake and Output 06/17/18 06/17/18 06/18/18 15:00 23:00 07:00 Intake Total 600 ml 373 ml 50 ml Output Total 1540 ml 430 ml 260 ml Balance -940 ml -57 ml -210 ml KAT JIMENEZ MD Jun 18, 2018 10:15
[2018-06-18] MEDS: ANTI-COAG MONITOR BY PHARMACY. MC PRN ×2 (10:29→10:31)
[2018-06-18] MEDS ORDERED: IV NORMAL SALINE 1000ML BAG 1,000 ML IV ONE (10:30)
[2018-06-18 10:41] LABS: BASE EXCESS ABG -5 mmol/L (-3-3); HCO3 ABG 20 mmol/L (21-28); PCO2 ABG 35 mmHg (35-46); PO2 ABG 69 mmHg (65-108); SAT O2 ABG 92 % (92-99)
[2018-06-18 10:42] LABS: FIO2 ABG 100
--- NOTE | 2018-06-18 11:08 | PDOC ---
PULMONARY PROGRESS NOTES Subjective worsening hypoxic RF on 100% BIPAP, increase R/R not responsive to lasix / anuric on levophed Vitals Vital Signs Date Time Temp Pulse Resp B/P (MAP) Pulse Ox O2 Delivery O2 Flow Rate FiO2 06/18/18 10:22 55 92 BiPAP/CPAP 06/18/18 07:00 75 97/44 (61) 06/18/18 06:24 15.0 06/18/18 04:00 98.7 98.7 General: Lethargic, Moderate Distress Lungs: Other (decrease bs) Cardiovascular: S1 Abdomen: Soft Extremities: Other (1+edema) Labs Laboratory Tests Test 06/17/18 05:01 06/17/18 08:45 06/17/18 13:00 06/17/18 21:00 White Blood Count 13.6 x10^3/uL (4.0-11.0) Red Blood Count 3.71 x10^6/uL (4.30-5.70) Hemoglobin 11.6 g/dL (13.0-17.5) Hematocrit 35.3 % (39.0-53.0) Mean Corpuscular Volume 95 fL (79-100) Mean Corpuscular Hemoglobin 31 pg (25-35) Mean Corpuscular Hemoglobin Concent 33 g/dL (31-37) Red Cell Distribution Width 15.2 % (11.5-14.5) Platelet Count 163 x10^3/uL (140-400) Heparin Anti-Xa Act, Unfractionated 0.20 IU/mL (0.30-0.70) 0.24 IU/mL (0.30-0.70) 0.42 IU/mL (0.30-0.70) Sodium Level 145 mmol/L (136-145) Potassium Level 4.3 mmol/L (3.5-5.1) Chloride Level 111 mmol/L (98-107) Carbon Dioxide Level 20 mmol/L (21-32) Anion Gap 14 (6-14) Blood Urea Nitrogen 50 mg/dL (8-26) Creatinine 1.8 mg/dL (0.7-1.3) Estimated GFR (Cockcroft-Gault) 37.1 Glucose Level 133 mg/dL (70-99) Calcium Level 8.2 mg/dL (8.5-10.1) Phosphorus Level 4.0 mg/dL (2.6-4.7) Magnesium Level 1.9 mg/dL (1.8-2.4) O2 Saturation 83 % (92-99) Arterial Blood pH 7.35 (7.35-7.45) Arterial Blood pCO2 at Patient Temp 33 mmHg (35-46) Arterial Blood pO2 at Patient Temp 51 mmHg (65-108) Arterial Blood HCO3 18 mmol/L (21-28) Arterial Blood Base Excess -7 mmol/L (-3-3) FiO2 100 Test 06/17/18 22:16 06/18/18 05:15 06/18/18 10:05 Glucose (Fingerstick) 161 mg/dL (70-99) White Blood Count 9.2 x10^3/uL (4.0-11.0) Red Blood Count 2.82 x10^6/uL (4.30-5.70) Hemoglobin 8.8 g/dL (13.0-17.5) Hematocrit 27.1 % (39.0-53.0) Mean Corpuscular Volume 96 fL (79-100) Mean Corpuscular Hemoglobin 31 pg (25-35) Mean Corpuscular Hemoglobin Concent 33 g/dL (31-37) Red Cell Distribution Width 15.0 % (11.5-14.5) Platelet Count 141 x10^3/uL (140-400) Heparin Anti-Xa Act, Unfractionated 0.34 IU/mL (0.30-0.70) Sodium Level 147 mmol/L (136-145) Potassium Level 3.9 mmol/L (3.5-5.1) Chloride Level 112 mmol/L (98-107) Carbon Dioxide Level 23 mmol/L (21-32) Anion Gap 12 (6-14) Blood Urea Nitrogen 82 mg/dL (8-26) Creatinine 2.2 mg/dL (0.7-1.3) Estimated GFR (Cockcroft-Gault) 29.4 Glucose Level 157 mg/dL (70-99) Calcium Level 8.1 mg/dL (8.5-10.1) O2 Saturation 92 % (92-99) Arterial Blood pH 7.36 (7.35-7.45) Arterial Blood pCO2 at Patient Temp 35 mmHg (35-46) Arterial Blood pO2 at Patient Temp 69 mmHg (65-108) Arterial Blood HCO3 20 mmol/L (21-28) Arterial Blood Base Excess -5 mmol/L (-3-3) FiO2 100 Laboratory Tests Test 06/17/18 13:00 06/17/18 21:00 06/17/18 22:16 06/18/18 05:15 Heparin Anti-Xa Act, Unfractionated 0.24 IU/mL (0.30-0.70) 0.42 IU/mL (0.30-0.70) 0.34 IU/mL (0.30-0.70) Glucose (Fingerstick) 161 mg/dL (70-99) White Blood Count 9.2 x10^3/uL (4.0-11.0) Red Blood Count 2.82 x10^6/uL (4.30-5.70) Hemoglobin 8.8 g/dL (13.0-17.5) Hematocrit 27.1 % (39.0-53.0) Mean Corpuscular Volume 96 fL (79-100) Mean Corpuscular Hemoglobin 31 pg (25-35) Mean Corpuscular Hemoglobin Concent 33 g/dL (31-37) Red Cell Distribution Width 15.0 % (11.5-14.5) Platelet Count 141 x10^3/uL (140-400) Sodium Level 147 mmol/L (136-145) Potassium Level 3.9 mmol/L (3.5-5.1) Chloride Level 112 mmol/L (98-107) Carbon Dioxide Level 23 mmol/L (21-32) Anion Gap 12 (6-14) Blood Urea Nitrogen 82 mg/dL (8-26) Creatinine 2.2 mg/dL (0.7-1.3) Estimated GFR (Cockcroft-Gault) 29.4 Glucose Level 157 mg/dL (70-99) Calcium Level 8.1 mg/dL (8.5-10.1) Test 06/18/18 10:05 O2 Saturation 92 % (92-99) Arterial Blood pH 7.36 (7.35-7.45) Arterial Blood pCO2 at Patient Temp 35 mmHg (35-46) Arterial Blood pO2 at Patient Temp 69 mmHg (65-108) Arterial Blood HCO3 20 mmol/L (21-28) Arterial Blood Base Excess -5 mmol/L (-3-3) FiO2 100 Medications Active Scripts Medications Dose Route/Sig Max Daily Dose Days Date Category Dose Instructions Tramadol Hcl 50 Mg Tablet 50 Mg PO Q6HRS PRN 06/15/18 Reported NITROGLYCERIN SubLingual (Nitroglycerin) 0.4 Mg Tab.subl 0.4 Mg SL PRN Q5MIN PRN 06/15/18 Reported Milk Of Magnesia (Magnesium Hydroxide) 400 Mg/5 Ml Oral.susp 400 Mg PO PRN QHS PRN 06/15/18 Reported [place] Greaseless Cream (Methyl Salicylate/Menthol) 57 Gm Cream..g. 57 Gm TP PRN Q1HR PRN 06/15/18 Reported Vitamin D3 (Cholecalciferol (Vitamin D3)) 1,000 Unit Tablet 2,000 Unit PO DAILY 06/15/18 Reported Vitamin B-12 (Cyanocobalamin (Vitamin B-12)) 1,000 Mcg Tablet 1 Tab PO DAILY 06/15/18 Reported Trazodone Hcl 50 Mg Tablet 50 Mg PO HS 06/15/18 Reported Miralax (Polyethylene Glycol 3350) 17 Gm Powd.pack 1 Pkt PO DAILY 06/15/18 Reported Maalox Maximum Strength Susp (Mag Hydrox/Al Hydrox/Simeth) 355 Ml Oral.susp 355 Ml PO Q12HR 06/15/18 Reported Cortef (Hydrocortisone) 20 Mg Tablet 20 Mg PO AFTRNOON PRN 06/15/18 Reported Cortef (Hydrocortisone) 10 Mg Tablet 15 Mg PO DAILY 06/15/18 Reported Pepcid (Famotidine) 20 Mg Tablet 20 Mg PO BID 06/15/18 Reported Cymbalta (Duloxetine Hcl) 60 Mg Capsule.dr 1 Cap PO DAILY 06/15/18 Reported Baclofen 10 Mg Tablet 5 Mg PO TID 06/15/18 Reported Lidocaine 1 Each Adh..patch 1 Each TP DAILY 06/15/18 Reported Meloxicam 7.5 Mg Tablet 7.5 Mg PO DAILY 05/25/18 Rx Zofran (Ondansetron Hcl) 4 Mg Tablet 4 Mg PO PRN TID PRN 04/04/18 Rx nausea/vomiting Comments CXR 06/18 WORSENING BILATERAL LUNG INFILTRATES, IMPROVED VOLUME LOSS LEFT LUNG Impression . 1. Acute hypoxic respiratory failure secondary to acute toxic encephalopathy likely related to psych medications POA. Now with worsening hypoxia/ worsening cxr, likely due to aspiration pneumonia / suspected mucous plug left, septic shock/ hypovolemic shock 2. Leukocytosis and increased procalcitonin level, related to aspiration pneumonia. ID has been consulted and follow their recommendation regarding antibiotic. 3. Acute kidney injury.worse 4. Cognitive impairment. 5. Atrial fibrillation with rapid ventricular response. 6. 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 Metabolic acidosis, related to ISIDRO 8. Encephalopathy Plan . 1. BIPAP with 100% Fio2/ precedex drip 2. Doubt CHF, failed to respond to lasix/ increase ISIDRO/ IVF bolus today 3. Continue BS antibiotic per Infectious Disease. 4. Monitor white cell count. 5. Continue prednisone. 6. Bronchodilators. 7. Monitor chest x-ray./ prn suction/ chest PT 8. Discussed with RN / RT/ 9. DNR/DNI/ Not stable for Bronch would rec comfort care. message left for daughter by palliative care/ meeting today cct 30 min KENRICK REYEZ MD Jun 18, 2018 11:08
--- NOTE | 2018-06-18 11:40 | RAD ---
EXAM: Chest, single view. HISTORY: Line placement. COMPARISON: Chest radiograph obtained on the same date. FINDINGS: A frontal view of the chest is obtained. There is a right internal jugular catheter with the tip in the superior cavoatrial junction. There has been no significant change in diffuse mixed interstitial and alveolar infiltrate throughout both lungs. No pleural effusion or pneumothorax is seen. There is a prominent cardiac silhouette. IMPRESSION: 1. Right internal jugular catheter with the tip in the superior cavoatrial junction. 2. Stable diffuse mixed interstitial and alveolar infiltrate throughout both lungs. 3. Cardiomegaly. Electronically signed by: Sugey Graham MD (06/18/2018 11:37 AM) [facility]
[2018-06-18] MEDS: DOXYCYCLINE HYCLATE 100 MG in IV DEXTROSE 5% 100ML 100 ML IV SCH ×2 (11:50→21:00)
[2018-06-18] MEDS: MEROPENEM 500 MG in IV NORMAL SALINE 50ML 50 ML IV SCH ×2 (13:41→22:00)
[2018-06-18] MEDS: ASPIRIN RECTAL 300 MG SUPP. PR SCH (13:46)
[2018-06-18] MEDS: LIDOCAINE (700MG/PATCH) PATCH. TD SCH (13:46)
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
[2018-06-18] MEDS ORDERED: IV NORMAL SALINE 500ML BAG 500 ML IV ONE (14:45)
--- NOTE | 2018-06-18 16:20 | NUR ---
SS following up with discharge planning. Palliative Care following. Family Meeting at 1630 today. SS will continue to follow for discharge planning.
[2018-06-18] MEDS ORDERED: DIGOXIN IV 500 MCG/2 ML AMPUL. IV ONE (16:45)
--- NOTE | 2018-06-18 17:58 | NUR ---
Patient's niece Alexandra called. Dora patients sister called and agrees with comfort care measures only. Dr Villa notified, orders given for morphine drip to titrate to keep respiration rate less than 20. Will wait for Pastor Diaz to see patient before initiating comfort measures.
[2018-06-18] MEDS ORDERED: GLYCOPYRROLATE 1 MG/5 ML VIAL. IV PRN (18:15)
[2018-06-18] MEDS: MORPHINE SULFATE/PF 30 ML IV PRN (20:49)
[2018-06-18] MEDS: PATCH REMOVAL. MC SCH (21:00)
[2018-06-18] MEDS: FAMOTIDINE 20 MG TABLET. PO SCH (21:00)
[2018-06-19] MEDS: METOPROLOL TARTRATE 5 MG/5 ML VIAL. IVP SCH
[2018-06-19 01:00] VITALS: BP 86/48
--- NOTE | 2018-06-19 01:00 | NUR ---
Patient's niece, Leslee, was here to see him and advised she wasn't aware of him being in the hospital. Called Sade for Leslee so she could get more information about the patient. Leslee at bedside and stated she was going to stay with patient and no other family members were coming. She advised that she was worried about patient see a safety officer but was relieved when she learned of Paster Joe at bedside. Advised that she was ready for the bipap to be removed.
[2018-06-19 01:30] VITALS: BP 86/48
[2018-06-19] MEDS: MORPHINE SULFATE 4 MG/ML VIAL. IV PRN (01:31)
[2018-06-19] MEDS: MORPHINE SULFATE/PF 30 ML IV PRN (01:42)
--- NOTE | 2018-06-19 02:00 | NUR ---
Bipap turned off at 0130h. Leslee at bedside. At about 147, patient remained unresponsive and also found to be pulseless and apneic. Confirmed by 2 RNs and asystole in 2 leads. Notified Sade Heck of time of . Family choice of [facility]. Notified [facility] and stated that they are in the process of contacting family and he his a candidate of eye and tissue donation. Patient at this time is not to be released to home and will notify when appropriate. Director Sales Support aware. No belongings found in the room.
--- NOTE | 2018-06-19 07:31 | RAD ---
Procedure: Ultrasound-guided placement of right internal jugular central venous catheter06/19/2018 7:27 AM Clinical Indication: Patient clinically. IV caustic medications Discussion: The risks and benefits of the procedure were discussed the patient and/or their branch service representative. Informed consent was obtained. A timeout procedure was performed. All elements of maximal sterile barrier technique including the use of a cap, mask, sterile gown, sterile gloves, large sterile sheet, appropriate hand hygiene, and 2% chlorhexidine for cutaneous antisepsis (or acceptable alternative antiseptic per current guidelines) were followed for this procedure. The patient was prepped and draped in the usual sterile fashion. Ultrasound interrogation of the right neck revealed patency and compressibility of the right internal jugular vein. A 21-gauge micropuncture was then used to gain access to this vein under ultrasound guidance. A hard copy ultrasound image was recorded. A guidewire was advanced centrally. 5 Bulgarian sheath was placed. Over a wire following dilatation, a triple-lumen central venous catheter was advanced centrally. Catheter was found to flush and aspirate normally. Follow-up chest radiograph demonstrates tip at the cavoatrial junction. Catheter secured in place and a sterile dressing was applied. No immediate complications were identified. Impression: Successful ultrasound-guided placement of right internal jugular triple-lumen central venous catheter
--- NOTE | 2018-06-20 16:09 | PDOC3 ---
Discharge Summary Visit Information Date of Admission: Jun 15, 2018 Date of Discharge: Jun 19, 2018 Admitting Diagnosis: Acute hypoxic respiratory failure Final Diagnosis Problems Medical Problems: (1) Acute respiratory distress Status: Acute (2) Adrenal insufficiency Status: Acute (3) Altered level of consciousness Status: Acute (4) Atrial fibrillation with RVR Status: Acute (5) HCAP (healthcare-associated pneumonia) Status: Acute (6) New onset seizure Status: Acute (7) Renal insufficiency Status: Acute (8) Sepsis Status: Acute Brief Hospital Course Allergies Allergies Coded Allergies Type Severity Reaction Last Updated Verified Penicillins Allergy Intermediate 04/03/18 Yes erythromycin base Allergy Intermediate 04/03/18 Yes Brief Hospital Course Severe sepsis Pneumonia bilaterally, likely gram negative with possible mucous plugging on left - appears to be ARDS now Possible seizure, post ictal Metabolic encephalopathy Acute hypercarbic respiratory failure, ICU admit, on BIPAP NSTEMI, 2/2 demand likely Afib RVR Acute diastolic CHF - needs fluids now History of Present Illness History of Present Illness Mr. Hill, is a 72 year old male SNF resident w/ PMHx severe cognitive deficits who was admitted after a seizure with prolonged unresponsiveness. Found with large leukocytosis, lactic acid elevation, troponin elevation with rapid breathing, admitted to ICU on BIPAP with heparin gtt and sepsis treatment. His niece notes he has the affect and mentation of a 10 year old or younger. Initial CXR showed white out left lung consistent with mucous plugging, had aggressive pulm toileting that was successful. Repeat CXR as follows. CXR - 1. The dense left chest opacity has improved since yesterday's study, probably representing a resolving mucous plug/atelectasis.2. Moderate residual patchy left pulmonary infiltrate and worsening moderate right lung infiltrate. Seen by pulm and ID in consultation. After aggressive care for a few days he was unable to be weaned from BIPAP, noted to be anuric overnight, cr climbed up and Hb dropped, no active bleeding. Prior to CT scan of his abdomen his niece met with staff and asked for comfort measures to be initiated and was started on morphine to titrate to RR of 20 from 50. Called to evaluate patient behavioral health worker on 06/19/18 after niece asked to remove bipap and at 147 patient had no further respiratory or cardiac activity. Discharge Information Condition at Discharge: / Disposition/Orders: Scheduled Baclofen (Baclofen) 10 Mg Tablet, 5 MG PO TID for MUSCLE RELAXER, #30 Ref 0 ( Reported) Entered as Reported by: SP BOSCH on 06/15/18 1234 Last Taken: Unknown Dose on 06/13/18 Last Action: Continued on 06/15/181338 by CAROLEE RUDD Cholecalciferol (Vitamin D3) (Vitamin D3) 1,000 Unit Tablet, 2,000 UNIT PO DAILY for vit, (Reported) Entered as Reported by: SP BOSCH on 06/15/18 125 Last Taken: Unknown Dose on 06/13/18 Last Action: Continued on 06/15/181338 by CAROLEE RUDD Cyanocobalamin (Vitamin B-12) (Vitamin B-12) 1,000 Mcg Tablet, 1 TAB PO DAILY for vit, #30 Ref 2 (Reported) Entered as Reported by: SP BOSCH on 06/15/18 125 Last Taken: Unknown Dose on 06/13/18 Last Action: HELD on 06/15/181338 by CAROLEE RUDD Duloxetine Hcl (Cymbalta) 60 Mg Capsule.dr, 1 CAP PO DAILY for none given, #90 Ref 3 (Reported) Entered as Reported by: SP BOSCH on 06/15/181250 Last Taken: Unknown Dose on 06/13/18 Last Action: Converted on 06/15/181338 by CAROLEE RUDD Famotidine (Pepcid) 20 Mg Tablet, 20 MG PO BID for GERD, (Reported) Entered as Reported by: SP BOSCH on 06/15/18 125 Last Taken: Unknown Dose on 06/13/18 Last Action: Continued on 06/15/181338 by CAROLEE RUDD Hydrocortisone (Cortef) 10 Mg Tablet, 15 MG PO DAILY for itching, (Reported) Entered as Reported by: SP BOSCH on 06/15/18 125 Last Taken: Unknown Dose on 06/13/18 Last Action: HELD on 06/15/181338 by CAROLEE RUDD Lidocaine (Lidocaine) 1 Each Adh..patch, 1 EACH TP DAILY for back pain, ( Reported) Entered as Reported by: SP BOSCH on 06/15/18 1234 Last Taken: Unknown Dose on 06/13/18 Last Action: Converted on 06/15/181338 by CAROLEE RUDD Mag Hydrox/Al Hydrox/Simeth (Maalox Maximum Strength Susp) 355 Ml Oral.susp, 355 ML PO Q12HR for heartburn, (Reported) Entered as Reported by: SP BOSCH on 06/15/181250 Last Taken: Unknown Dose on 06/13/18 Last Action: Continued on 06/15/181338 by CAROLEE RUDD Meloxicam (Meloxicam) 7.5 Mg Tablet, 7.5 MG PO DAILY, #20 Prescribed by: STEPAN IRVIN DO on 05/25/181926 Last Action: HELD on 06/15/181338 by CAROLEE RUDD Polyethylene Glycol 3350 (Miralax) 17 Gm Powd.pack, 1 PKT PO DAILY for constipation, (Reported) Entered as Reported by: SP BOSCH on 06/15/181255 Last Action: Converted on 06/15/181338 by CAROLEE RUDD Trazodone Hcl (Trazodone Hcl) 50 Mg Tablet, 50 MG PO HS for insomnia, (Reported) Entered as Reported by: SP BOSCH on 06/15/181255 Last Taken: Unknown Dose on 06/13/18 Last Action: HELD on 06/15/181338 by CAROLEE RUDD Scheduled PRN Hydrocortisone (Cortef) 20 Mg Tablet, 20 MG PO AFTRNOON PRN for ITCHING, ( Reported) Entered as Reported by: SP BOSCH on 06/15/181250 Last Taken: Unknown Dose on 06/13/18 Last Action: HELD on 06/15/181338 by CAROLEE RUDD Magnesium Hydroxide (Milk Of Magnesia) 400 Mg/5 Ml Oral.susp, 400 MG PO PRN QHS PRN for CONSTIPATION, (Reported) Entered as Reported by: SP BOSCH on 06/15/181255 Last Action: Continued on 06/15/181338 by CAROLEE RUDD Methyl Salicylate/Menthol (Bengay Greaseless Cream) 57 Gm Cream..g., 57 GM TP PRN Q1HR PRN for MUSCLE PAIN, (Reported) Entered as Reported by: SP BOSCH on 06/15/181255 Last Action: HELD on 06/15/181338 by CAROLEE RUDD Nitroglycerin (NITROGLYCERIN SubLingual) 0.4 Mg Tab.subl, 0.4 MG SL PRN Q5MIN PRN for CHEST PAIN, (Reported) Entered as Reported by: SP BOSCH on 06/15/18 1256 Last Action: Continued on 06/15/181338 by CAROLEE RUDD Ondansetron Hcl (Zofran) 4 Mg Tablet, 4 MG PO PRN TID PRN for NAUSEA/VOMITING, # 15 nausea/vomiting Prescribed by: STEPAN IRVIN DO on 04/04/18 0359 Last Action: Converted on 06/15/181338 by CAROLEE RUDD Tramadol Hcl (Tramadol Hcl) 50 Mg Tablet, 50 MG PO Q6HRS PRN for PAIN, (Reported ) Entered as Reported by: SP BOSCH on 06/15/18 1256 Last Action: Continued on 06/15/181338 by SKYLAR DU MD Jun 20, 2018 16:09
== END 2018-06-19 03:00 | disposition expired | DRG 871 ==
LOC: ER 09:36 → 6 SOUTH 09:58 → 1 WEST ICU 12:12
PROVIDERS: ADMIT Internal Medicine; ATTEND Internal Medicine
PROC: 5A09357 Assistance with Respiratory Ventilation, Less than 24 Consecutive Hours, Continuous Positive Airway Pressure (ICD-10-PCS; 2018-06-15)
PROC: 5A09357 Assistance with Respiratory Ventilation, Less than 24 Consecutive Hours, Continuous Positive Airway Pressure (ICD-10-PCS; 2018-06-16)
PROC: 5A09357 Assistance with Respiratory Ventilation, Less than 24 Consecutive Hours, Continuous Positive Airway Pressure (ICD-10-PCS; 2018-06-17)
PROC: 5A09457 Assistance with Respiratory Ventilation, 24-96 Consecutive Hours, Continuous Positive Airway Pressure (ICD-10-PCS; 2018-06-17)
PROC: 5A1935Z Respiratory Ventilation, Less than 24 Consecutive Hours (ICD-10-PCS; 2018-06-17)
PROC: 0BH17EZ Insertion of Endotracheal Airway into Trachea, Via Natural or Artificial Opening (ICD-10-PCS; 2018-06-17)
PROC: 02HV33Z Insertion of Infusion Device into Superior Vena Cava, Percutaneous Approach (ICD-10-PCS; principal; 2018-06-18)
PROC: B548ZZA Ultrasonography of Superior Vena Cava, Guidance (ICD-10-PCS; 2018-06-18)
DX: A41.9 Sepsis, unspecified organism (principal); G92 Toxic encephalopathy; I50.31 Acute diastolic (congestive) heart failure; J96.01 Acute respiratory failure with hypoxia; J96.02 Acute respiratory failure with hypercapnia; I21.4 Non-ST elevation (NSTEMI) myocardial infarction; J18.9 Pneumonia, unspecified organism; E27.1 Primary adrenocortical insufficiency; I42.9 Cardiomyopathy, unspecified; N17.9 Acute kidney failure, unspecified; T17.890A Other foreign object in other parts of respiratory tract causing asphyxiation, initial encounter; F17.210 Nicotine dependence, cigarettes, uncomplicated; I11.0 Hypertensive heart disease with heart failure; X58.XXXA Exposure to other specified factors, initial encounter; Z66 Do not resuscitate; I48.91 Unspecified atrial fibrillation; J45.909 Unspecified asthma, uncomplicated; K21.9 Gastro-esophageal reflux disease without esophagitis; R56.9 Unspecified convulsions; R65.20 Severe sepsis without septic shock; Y95 Nosocomial condition; Z88.1 Allergy status to other antibiotic agents; Z88.0 Allergy status to penicillin; Y93.89 Activity, other specified; Y92.89 Other specified places as the place of occurrence of the external cause; Y99.8 Other external cause status
CPT/HCPCS: 36415; 36556; 36600; 51702; 70450; 71045; 72125; 76937; 80048; 80053; 81001; 82550; 82805; 82962; 83605; 83735; 84100; 84145; 84484; 85007; 85025; 85027; 85520; 85610; 87040; 87449; 87641; 87804; 93005; 93306; 94640; 94660; 94760; 96361; 96365; 96366; 96374; C1892; J0692; J1160; J1644; J1940; J2020; J2060; J2185; J2270; J2930; J3370; J3490; J7030; J7040; J7512; J7620; 99285-25